=== PATIENT | female | born 1960 | race Caucasian/White ===

== ENCOUNTER 2024-11-25 13:47 | Inpatient (IN) | payer OTHER, MEDICAID, MEDICARE, SELFPAY ==
[2024-11-25] VITALS (31 sets, daily range): BP systolic 71–115; BP diastolic 42–75; PULSE 85–103; RESP 14–30; TEMP 36.6–36.8; O2SAT 82–100; BMI 24.7
--- NOTE | 2024-11-25 14:52 | PD.EDAMS ---
Altered Mental Status RME/HPI General Chief Complaint: Altered Mental Status Stated Complaint: AMS Time Seen by Provider: 11/25/24 14:48 Arrival date/time: 11/25/24 13:47 RME / HPI RME / HPI narrative: DR. GU MAIN ED EVALUATION: 64 year old female presents to the Emergency Department with complaints of nausea, vomiting, diarrhea, and frequent falling for 2 days, generalized weakness. Symptoms are moderate. Patient denies any of the following: cough, injuries/ broken bones, or any other symptoms at this time. PMHx: Hypertension, migraine headaches, bipolar disorder, depression, anxiety. In September 2022 had a witnessed tonic-clonic seizure, no subsequent visits for seizures. On oxycodone for chronic back pain. Social Hx: No tobacco, alcohol, or substance use. Related Data Home Medications ?Medication ?Instructions ?Recorded ?Confirmed albuterol sulfate 90 mcg/actuation 2 puff inhalation Q6HR PRN 10/01/22 10/01/22 aerosol inhaler (Ventolin HFA) Shortness Of Breath carvedilol 12.5 mg tablet 12.5 mg PO BID 10/01/22 10/01/22 memantine 10 mg tablet 10 mg PO BID 10/01/22 10/01/22 simvastatin 10 mg tablet 10 mg PO QPM 10/01/22 10/01/22 tiotropium 2.5 mcg-olodaterol 2.5 2 puff inhalation DAILY 10/01/22 10/01/22 mcg/actuation mist for inhalation (Stiolto Respimat) lisinopril 20 mg tablet 20 mg PO QDAY 10/04/22 10/04/22 Previous Rx's ?Medication ?Instructions ?Recorded pantoprazole 40 mg tablet,delayed 40 mg PO QDAY #30 tabs 12/31/23 release (Protonix) hydrochlorothiazide 12.5 mg capsule 12.5 mg PO BIDD #60 caps 06/10/24 pregabalin 100 mg capsule (Lyrica) 100 mg PO QDAY #30 caps 06/10/24 Allergies Allergy/AdvReac Type Severity Reaction Status Date / Time No Known Allergies Allergy Verified 11/25/24 13:51 Review of Systems Review of Systems Systems Reviewed: All systems reviewed, normal except as documented Narrative Review of Systems: GEN: No fever, no chills, no weight loss, + frequent falling for 2 days EYES: No discharge, no visual changes, no pain HEENT: No ear pain, no congestion, no sore throat PULM: No shortness of breath, no cough, no congestion CV: No chest pain, no dyspnea on exertion, no palpitations GI: + nausea, + vomiting, + diarrhea, no pain, no constipation : No frequency, no urgency and no dysuria MUSC/SKEL: No joint pain, no back pain SKIN: No rash PSYCH: No hallucinations, no depression HEME/LYMPH: No easy bleeding or bruising tendencies NEURO: + generalized weakness, no headache Past Medical History Past Medical History NEUROLOGIC: Positive Neurological Disorders, Dementia, Seizures and Migraine; Negative Cerebrovascular Accident CARDIAC: Positive Heart Murmur, Hypercholesterolemia, Hypertension and Hypotension; Negative Cardiac Disorders or Congestive Heart Failure RESPIRATORY: Positive Chronic Obstructive Pulmonary Disease (COPD) and Asthma; Negative Pneumonia, Tuberculosis or Sleep Apnea GASTROINTESTINAL: Positive Gastrointestinal Disorders, Gastrointestinal Bleed, Ulcer, Hiatal Hernia, Hemorrhoids and Gastroesophageal Reflux Disease GENITOURINARY: Positive Polycystic Kidney Disease; Negative Genitourinary Disorders or Renal Disease REPRODUCTIVE: Positive Previous Pregnancies MUSCULOSKELETAL: Positive Musculoskeletal Disorders, Arthritis, Scoliosis, Fibromyalgia and Fractures ENDOCRINE: Positive Endocrine Disorders and Diabetes Mellitus Type 2; Negative Diabetes Mellitus Type 1, Hyperthyroidism or Hypothyroidism HEMATOLOGIC: Negative Blood Disorders or Sickle Cell Disease PSYCHO/SOCIAL: Positive Bipolar Disorder, Depression and Anxiety OTHER HISTORY: Positive Hospitalization, Falls and Chicken Pox; Negative Shingles, Blood Transfusions, Blood Transfusion Reaction, Anesthesia Reactions or Cancer Family History FAMILY HISTORY: Positive Family Cardiac Disorders and Family Cancer (Mother with liver cancer) Surgical History SURGICAL: Positive Joint Replacement and Tubal Ligation (1984) Social History SMOKING STATUS: Current some day smoker SUBSTANCE USE: does not use OCCUPATION: Disabled ED Exam Narrative Physical exam: GENERAL APPEARANCE: Well hydrated, well nourished, looks uncomfortable. Appears to be dehydrated. VITALS: All vitals were reviewed and the pulse ox is 98% on room air which is normal according to my interpretation. HEENT: Normocephalic, atramatic, EOMI, EACs are patent. There is no bulge or retraction. Throat without erythema or exudate. Dry oromucosa. No jaundice NECK: Supple, no JVD or bruits. CARDIOVASCULAR: Heart regular without S3-S4 or murmur. No rubs or gallops. LUNGS/CHEST: Clear to auscultation bilaterally. No rales, rhonchi, or wheezing. Normal inspection. ABDOMEN: Some pain in the suprapubic area. Normal bowel sounds. No pulsatile masses. No rebound, rigidity, or guarding. No incarcerated hernia. EXTREMITIES: No edema, clubbing, or cyanosis. Intact CSM. Normal inspection and palpation. SKIN: Warm and dry without rashes. Normal inspection. MUSCULOSKELETAL: No gross deformity, full ROM all extremities. Normal inspection. NEURO: Alert and oriented x3. Cranial nerves II through XII grossly intact. There are no other motor or sensory deficits noted. GCS of 15. FROM of all 4 extremities with symmetrical strength. 5/5. PSYCHIATRIC: Normal mood and affect. No psychosis. Course Quality Measures none Orders Category Date Time Status Bedside Blood Glucose NOW Care 11/25/24 14:[address] Screening NOW Care 11/25/24 15:14 Active Change Director NOW Care 11/25/24 14:29 Active Continuous Pulse Oximetry NOW Care 11/25/24 14:29 Completed EKG (ED ONLY) *Do not use* NOW Care 11/25/24 16:03 Completed Insert IV NOW Care 11/25/24 14:[address] abdomen pelvis w con Stat Exams 11/25/24 15:[address] head/brain wo con Stat Exams 11/25/24 15:14 Ordered EKG (ED Only) Stat Exams 11/25/24 16:03 Draft Alcohol, Blood Medical Stat Lab 11/25/24 14:45 Completed CBC Stat Lab 11/25/24 14:45 Completed Comprehensive Metabolic Panel Stat Lab 11/25/24 14:45 Completed Drug Screen,Urine Stat Lab 11/25/24 15:18 Ordered Magnesium Stat Lab 11/25/24 14:45 Completed Troponin I Stat Lab 11/25/24 18:09 Ordered Urine Culture Stat Lab 11/25/24 15:18 Received Sodium Chloride 0.9% 1000 ml [Ns] 1,000 ml Med 11/25/24 15:15 Discontinued IV 999 mls/hr Sodium Chloride 0.9% 1000 ml [Ns] 1,000 ml Med 11/25/24 16:49 Discontinued IV 999 mls/hr Sodium Chloride 0.9% 1000 ml [Ns] 1,000 ml Med 11/25/24 17:36 Active IV 999 mls/hr Vital Signs Vital signs: Vital Signs Temperature 97.9 F 11/25/24 14:05 Pulse Rate 87 11/25/24 14:05 Respiratory Rate 18 11/25/24 14:05 Blood Pressure 101/75 11/25/24 14:05 Pulse Oximetry (%) 98 11/25/24 14:05 Oxygen Delivery Method Room Air 11/25/24 14:05 Altered Mental Status MDM Narrative MDM Narrative:: I, Silvia Skelton, am scribing for and in the presence of Dr. Gu. CBC unremarkable. Bicarb of 13. BUN and creatinine is 137/11. Osmolality is also very elevated. Consistent with metabolic acidosis and dehydration anion gap is also elevated. UA is pending. U tox is pending. ET is negative. Magnesium is negative. Troponin is pending. The patient came in with a blood pressure 101/75 but gradually is slowing down to about 74 palpable. I did rectal exam on her in the presence of female RN looking for blood. But guaic was negative from below. Because of the hypotension, the patient received up to 3 L of normal saline. She is on the third liter right now. Her blood pressure is 100/70. The patient is actually alert awake oriented x 4 GCS of 15 and talking well. No neurological deficit. 6 PM, I spoke to discussed with , the incoming ER doctor. The patient was signed out to him pending CTs and pending labs Critical care time was approximately 45 minutes excluding any procedure. The high probability of sudden, clinically significant deterioration in the patient?s condition required the highest level of my preparedness to intervene urgently. The services I provided to this patient were to treat and/or prevent clinically significant deterioration. Services included the following: chart data review, reviewing nursing notes and/or old charts, documentation time, configuration management consultant collaboration regarding findings and treatment options, medication orders and management, direct patient care, vital sign assessments and ordering, interpreting and reviewing diagnostic studies and lab tests. Aggregate critical care time includes only time during which I was engaged in work directly related to the patient?s care, as described above, whether at bedside or elsewhere in the Emergency Department. It did not include time spent performing other reported procedures or the services of residents, students, nurses or physician assistants. Patient data External records reviewed:: [facility] previous records (Reviewed last admission discharge dated 06/10/24, patient admitted for the following: AMS) Clinical information provided by:: patient Social determinants that could affect healthcare access:: none Patient has the following chronic illnesses:: Hypertension, migraine headaches, bipolar disorder, depression, anxiety. In September 2022 had a witnessed tonic-clonic seizure, no subsequent visits for seizures. On oxycodone for chronic back pain. How is presenting disease/condition affected by chronic disease/condition?: exacerbated by Evaluation data The following diagnostics were reviewed and interpreted by me:: lab results and radiology exam(s) Lab and/or radiology exams considered but not ordered:: none Interpretation Summary: Pending. Medications / Prescriptions Medications or Prescriptions considered but not ordered:: none Medication administrations:: Medication Administration History Sodium Chloride (Ns) 1,000 mls @ 999 mls/hr IV .Q1H1M ONE Stop: 11/25/24 18:36 Last Admin: 11/25/24 17:15 Dose: 999 mls/hr Documented By: AM Discontinued Medications Sodium Chloride (Ns) 1,000 mls @ 999 mls/hr IV .Q1H1M ONE Stop: 11/25/24 16:15 Last Infusion: 11/25/24 16:30 Dose: Infused Documented By: Admin: 11/25/24 16:06 Dose: 999 mls/hr Documented By: AM Sodium Chloride (Ns) 1,000 mls @ 999 mls/hr IV .Q1H1M ONE Stop: 11/25/24 17:49 Last Infusion: 11/25/24 17:32 Dose: Infused Documented By: Admin: 11/25/24 16:53 Dose: 999 mls/hr Documented By: AM see above if any Consultations Consultation(s) initiated? (list below): No Diagnosis Most likely diagnosis given after review of the tests above:: Acute renal failure Hypotension Admission Indicated Admission indicated?: not indicated Explain why admission is indicated or not indicated:: No final disposition plan at this time, still pending diagnostic tests. Patient signout to the travel cota provider. Admission Request Was there a request for admission?: No Disposition Plan Disposition Plan: other (specify) (Patient signout to the travel cota provider. ) Discharge Plan Plan Disposition Comment: Stable at signout Prescriptions/Referrals Prescriptions/Med Rec: No Action Stiolto Respimat 2.5-2.5 mcg/actuation mist 2 puff INHALATION DAILY albuterol sulfate [Ventolin HFA] 90 mcg/actuation HFA aerosol inhaler 2 puff INHALATION Q6HR PRN (Reason: Shortness Of Breath) memantine 10 mg tablet 10 mg PO BID simvastatin 10 mg tablet 10 mg PO QPM carvedilol 12.5 mg tablet 12.5 mg PO BID lisinopril 20 mg Tablet 20 mg PO QDAY pregabalin [Lyrica] 100 mg capsule 100 mg PO QDAY Qty: 30 0RF hydrochlorothiazide 12.5 mg Capsule 12.5 mg PO BIDD Qty: 60 0RF pantoprazole [Protonix] 40 mg tablet,delayed release (DR/EC) 40 mg PO QDAY Qty: 30 0RF Referrals: Benjie Morales MD [Primary Care Provider] - In 1 week Problem List Clinical Impression: Acute renal failure, Dehydration, Acute hypotension Patient/Caregiver Discharge Instructions Print Language: Arabic
--- NOTE | 2024-11-25 15:14 | XR_ITS ---
Examination: CT brain head without contrast. 2-D sagittal coronal reconstructions Date and time of exam:November 25, 2024 1909 hrs. Indications: Patient fell today with injury to the head, followed by head pain altered mental status CTDI: vol (mGy):47.4 DLP: (mGycm):901 Technique: Multiple CT axial sections of the brain have been obtained, 5 mm slice thickness. Contrast has not been administered. 2-D sagittal, coronal reconstructions have been obtained Low dose protocols were performed. One or more of the following dose reduction techniques were used; automated exposure control, adjustment of the mA and/or KV according to patient size, use of iterative reconstruction technique. Findings: No significant ventricular enlargement. Intra-axial or extra-axial hemorrhage density is not seen. No mass effect or midline shift Basal cisterns are not remarkable. Fourth ventricle is midline. Cranial vault intact. Impression: Negative for acute hemorrhage, mass effect or midline shift
[2024-11-25 15:38] LABS: Basophils % (Auto) 0 % (0-2.5); Eosinophils % (Auto) 0 % (0-10); Hematocrit 38.4 % (36.0-46.0); Immature Granulocytes % (Auto) 1 % (0-0); Immature Granulocytes Auto 0.04 Thou/mm3 (0.00-0.00); Lymphocytes # (Auto) 0.8 Thou/mm3 (1.0-4.8); Lymphocytes % (Auto) 9 % (10-50); Mean Corpuscular HGB Conc 33.9 g/dl (31.0-37.0); Mean Corpuscular Hemoglobin 31.5 pg (25.0-35.0); Mean Corpuscular Volume 93 fL (80-100); Monocytes % (Auto) 11 % (0-12); Neutrophils # (Auto) 6.8 Thou/mm3 (1.8-7.7); Neutrophils % (Auto) 79 % (37-80); Nucleated Red Blood Cell % 0 /100 WBC (0); Platelet Count 322 Thou/mm3 (140-440); RDW Standard Deviation 45.6 fL (36.4-46.3); Red Blood Count 4.13 Miln/mm3 (4.00-5.20); White Blood Count 8.7 Thou/mm3 (3.6-11.0)
--- NOTE | 2024-11-25 16:03 | EKG_ITS ---
[facility] Test Date: 2024-11-25 Pat Name: TRUMAN BYRD Department: Room: - Gender: Female Chronic Care Nurse: : 1960 Requested By: Long Gu Order Number: [id number] Reading MD: Long Gu Measurements Intervals [place] Rate: 87 P: 71 CO: 127 QRS: 62 QRSD: 86 T: 72 QT: 413 QTc: 499 Interpretive Statements SINUS RHYTHM LEFT VENTRICULAR HYPERTROPHY AND ST-T CHANGE [VOLTAGE CRITERIA PLUS ST/T ABNORMALITY] No previous ECG available for comparison /store/S0/[id number]/ecg/[id number].pdf
[2024-11-25] MEDS: SODIUM CHLORIDE 0.9% 1000 ML 1,000 ML 999 ML IV ×3 (16:06→17:15)
--- NOTE | 2024-11-25 16:07 | PC.NURSE ---
ekg complete. Dr. Gu at bedside. Pt has 1 L fluid running in now. b/p 71/56.
--- NOTE | 2024-11-25 16:53 | PC.NURSE ---
Dr. Gu came to see pt. b/p 85/52, pt started on another 1 liter ns bolus. b/p 103/51 now.
[2024-11-25 17:22] LABS: Alanine Aminotransferase 28 U/L (10-49); Albumin, Serum 5.5 gm/dL (3.4-4.8); Alcohol, Blood Medical < 3.0 mg/dL (0-10.0); Alkaline Phosphatase 87 U/L (46-116); Anion Gap 28 (7-16); Aspartate Amino Transferase 25 U/L (0-34); BUN/Creatinine Ratio 12 Ratio (12-20); Bilirubin,Total 0.3 mg/dL (0.3-1.2); Chloride 91 mMol/L (98-107); Globulin 2.7 gm/dL (2.3-3.5); Glucose 99 mg/dL (74-106); Magnesium 2.6 mg/dL (1.6-2.6); Osmolality,Calculated 308 (275-295); Potassium 3.5 mMol/L (3.4-5.1); Sodium 132 mMol/L (136-145); Total Protein 8.2 gm/dL (5.7-8.2); eGFR 4 See Note
[2024-11-25 17:23] LABS: Blood Urea Nitrogen 137 mg/dL (9-23); Creatinine (Component) 11.1 mg/dL (0.6-1.3)
--- NOTE | 2024-11-25 17:34 | PC.NURSE ---
Dr. Gu informed about b/p going down to 74/44 after 2nd ns bolus. Another 1 liter bolus started. Pt holding off on ct for 30 minutes, until MD states she is stable to go.
--- NOTE | 2024-11-25 18:20 | XR_ITS ---
Examination: CT chest, without intravenous contrast. CT abdomen, without intravenous contrast. CT pelvis, without intravenous contrast. 2-D sagittal and coronal reconstructions. 3-D reconstructions. Date and time of exam:November 25, 1999 2511 hours Indications: Patient fell today with injury to the chest and abdomen, chest pain abdomen pain CTDI vol (mgy) 9.97 DLP (MGycm)653 Technique: Multiple CT images, 3.0 mm slice thickness, obtained chest, abdomen, pelvis, with the high-resolution 64 slice scanner.. Sagittal and coronal 2-D reconstructions are obtained. 3-D reconstructions Low dose protocols were performed. One or more of the following dose reduction techniques were used; automated exposure control, adjustment of the mA and/or KV according to patient size, use of iterative reconstruction technique. Findings: Thoracic aorta pulmonary arteries intact on this noncontrast study No hemopericardium No pneumothorax pulmonary contusion or hemothorax Ribs appear intact Manubrium body the sternum thoracic vertebral bodies intact No liver splenic laceration Again noted fat-containing right adrenal mass 34 mm Hyperdense mass right kidney which may represent a proteinaceous cyst, 4.7 cm No perinephric stranding Aorta normal size No free blood in the abdomen Negative for pneumoperitoneum Urinary bladder intact Lumbar vertebral bodies appear intact Sacral segments and iliac bones and hips appear intact Impression: Thoracic aorta pulmonary arteries intact Hemopericardium, pneumothorax, pulmonary contusion or hemothorax No abdominal parenchymal laceration Abdominal aorta intact No free blood in the abdomen Recommend renal sonography to confirm 4.7 cm proteinaceous cyst
[2024-11-25 18:44] LABS: Troponin I 0.058 ng/mL (0.0-0.045)
[2024-11-25 18:53] LABS: Lactate (Lactic Acid) 0.5 mMol/L (0.4-2.0)
[2024-11-25] MEDS: SODIUM CHLORIDE 0.9% 1000 ML 1,000 ML 125 ML IV (18:56)
[2024-11-25 19:19] LABS: Procalcitonin 3.58 ng/ml (0.0-0.49)
--- NOTE | 2024-11-25 20:04 | PD.EDADDENDU ---
Emergency Room Addendum Addendum Narrative: 1800 care assumed by previous shift provider. Past medical, surgical, social and family history reviewed. Vitals and home medications reviewed. Results and treatment plan discussed. I will assume the care of the patient at this time and will follow the patient, pending final disposition. On my encounter Ms. Cox is awake slightly lethargic,, she has very dry mucous membranes, no pallor. She has been complaining of 5 days of profuse watery brown diarrhea, over 20 episodes a day. She has also had nausea and vomiting for the last 5 days. She denies recent URI or sick contacts. She denies fevers chills or sweats. Patient has significant azotemia, with a BUN of 137, potassium is normal, but she has a moderate anion gap metabolic acidosis with a bicarbonate of 13 and anion gap of 28. This is resulting in a delta bicarbonate of 11 and a delta gap of 14, which suggests primarily a gap acidosis. Her creatinine at 11 would suggest a nongap acidosis. Blood sugar is normal, I added a lactic acid which also returned within normal limits. At 1900, nephrology, Dr. York was consulted. We reviewed her acute kidney, metabolic profile, and we agree that it is curious as she does seem to have primarily a anion gap acidosis with a contraction alkalosis on top of that as to why her delta gap is greater than her delta bicarbonate. Regardless we do not feel that she requires emergent dialysis, could benefit from a bicarbonate drip and a liter of D5W and to supplement and support her potassium at the same time. She will consult on the admission. Critical care time: 35 minutes, excluding billable procedures for the rapid response, analysis, management, deliberation with specialist, and rotation given the very possible risk of metabolic decompensation and or CT abdomen pelvis shows no acute pathology. 1999: Case was discussed with Dr. Conrad, hospitalist on-call and agrees to admit.
[2024-11-25] MEDS: POTASSIUM CHL 10 mEq IVPB 10 MEQ/100 ML BAG 100 MEQ IV (20:24)
[2024-11-25] MEDS: Sodium Bicarb 8.4% 50ml Vial* 150 MEQ in DEXTROSE 5%-WATER 1,000 ML 100 MEQ IV (20:25)
[2024-11-25] MEDS: POTASSIUM CHL 10 mEq IVPB 10 MEQ/100 ML BAG 75 MEQ IV (22:07)
[2024-11-25] MEDS: RINGERS LACTATED 1000 ML 1,000 ML 125 ML IV (22:07)
[2024-11-25] MEDS: HEPARIN SOD INJ 5000 UNIT/ML VIAL SC (22:08)
--- NOTE | 2024-11-25 22:15 | PC.NURSE ---
per dr galeano stop normal saline fluid and start patient on LR fluid instead
--- NOTE | 2024-11-25 22:17 | ESHP_ITS ---
Documentation for date of: 11/25/24 HPI History of Present Illness Chief complaint: Vomitings and diarrhea History of present illness: 64-year-old female with past medical history of hypertension, seizure disorder [2021] not on medication, bipolar, dementia, chronic diarrhea, chronic back pain, history of SVT s/p cardioversion presented to the hospital with chief complaints of intractable vomitings and diarrhea since 5 days. Patient was apparently normal 5 days ago, since then patient is complaining of multiple episodes of vomitings which are bilious and multiple episodes of diarrhea containing brown watery stools without any associated mucus or blood. Associated with mild abdominal pain on the left side. Since last 3 days, patient had multiple episodes of fall during which patient felt blackening out without any loss of consciousness or abnormal movements and also denied associated tongue bite. Denies recent travel, recent outside food intake, fever. Reported that she is taking Percocet and also taking Movantik for the opioid-induced constipation until 3 days before the day of admission. Patient endorses that he had mild trauma to the head and the finger but without any associated symptoms. Patient endorses that she noted decreased frequency of urination without any change in the color. ED Course: -Initial vitals were blood pressure 101/75 mmHg, pulse rate 87 bpm, respiratory rate 18/min, temperature 97.9 ?F, SpO2 98% with room air -Labs significant for Sodium 132, potassium 3.5, chloride 91, bicarb 13, BUN 137, creatinine 11.1, troponin 0.085, procalcitonin 3.58 -Urine analysis showed turbid, 1+ proteinuria, 1+ blood. Urine toxicology is negative -Head CT is negative for hemorrhage/mass effect. CT chest/abdomen/pelvis did not show any significant pathology except for renal cyst -In the ED, patient was given bolus of IV NS and started on bicarb drip as per Dr. York recommendations -Patient was admitted for acute kidney injury secondary to intractable vomitings and diarrhea Past medical history: hypertension, seizure disorder [2021] not on medication, bipolar, dementia, chronic diarrhea, history of SVT s/p cardioversion Past surgical history: Tubal ligation Social history: Remote smoking of 25 years, stopped 20 years ago, denies alcohol, other illicit drug abuse. Review of Systems Review of Systems Systems Reviewed: All systems reviewed, normal except as documented Past Medical History Past Medical History NEUROLOGIC: Positive Neurological Disorders, Dementia, Seizures and Migraine; Negative Cerebrovascular Accident CARDIAC: Positive Heart Murmur, Hypercholesterolemia, Hypertension and Hypotension; Negative Cardiac Disorders or Congestive Heart Failure RESPIRATORY: Positive Chronic Obstructive Pulmonary Disease (COPD) and Asthma; Negative Pneumonia, Tuberculosis or Sleep Apnea GASTROINTESTINAL: Positive Gastrointestinal Disorders, Gastrointestinal Bleed, Ulcer, Hiatal Hernia, Hemorrhoids and Gastroesophageal Reflux Disease GENITOURINARY: Positive Polycystic Kidney Disease; Negative Genitourinary Disorders or Renal Disease REPRODUCTIVE: Positive Previous Pregnancies MUSCULOSKELETAL: Positive Musculoskeletal Disorders, Arthritis, Scoliosis, Fibromyalgia and Fractures ENDOCRINE: Positive Endocrine Disorders and Diabetes Mellitus Type 2; Negative Diabetes Mellitus Type 1, Hyperthyroidism or Hypothyroidism HEMATOLOGIC: Negative Blood Disorders or Sickle Cell Disease PSYCHO/SOCIAL: Positive Bipolar Disorder, Depression and Anxiety OTHER HISTORY: Positive Hospitalization, Falls and Chicken Pox; Negative Shingles, Blood Transfusions, Blood Transfusion Reaction, Anesthesia Reactions or Cancer Family History FAMILY HISTORY: Positive Family Cardiac Disorders and Family Cancer (Mother with liver cancer) Surgical History SURGICAL: Positive Joint Replacement and Tubal Ligation (1984) Social History SMOKING STATUS: Current some day smoker SUBSTANCE USE: does not use OCCUPATION: Disabled Exam Vital Signs Temp Pulse Resp BP Pulse Ox O2 Del Method 98.0 F 95 16 115/57 L 98 Room Air 11/25/24 19:30 11/25/24 21:13 11/25/24 21:13 11/25/24 21:13 11/25/24 21:13 11/25/24 21:13 Narrative Exam General: Awake. HEENT: Normocephalic, atraumatic, mucous membranes moist. Heart: Regular rate and rhythm, no murmurs. Lungs: Clear to auscultation with no wheezing or crackles. Abdomen: Soft, nondistended, nontender, positive bowel sounds. ?No guarding or rebound tenderness. Neurologic: Alert and oriented x3, no gross neurological deficit, and patient able to move all 4 extremities. Extremities: No edema. Skin: No rash or ecchymoses. Results: Labs 11/25/24 14:45 11/25/24 14:45 Labs: Short CBC 11/25/24 Range/Units 14:45 WBC 8.7 (3.6-11.0) Thou/mm3 Hgb 13.0 (12.0-16.0) g/dL Hct 38.4 (36.0-46.0) % Plt Count 322 (140-440) Thou/mm3 BMP 11/25/24 14:45 Sodium 132 L Potassium 3.5 Chloride 91 L Carbon Dioxide 13.0 L* BUN 137 H* Creatinine 11.1 H* Glucose 99 Calcium 8.0 L Cardiac Enzymes 11/25/24 Range/Units 14:45 Troponin I 0.058 H* (0.0-0.045) ng/mL Liver Function 11/25/24 Range/Units 14:45 Total Bilirubin 0.3 (0.3-1.2) mg/dL AST 25 (0-34) U/L ALT 28 (10-49) U/L Alkaline Phosphatase 87 (46-116) U/L Albumin 5.5 H (3.4-4.8) gm/dL Urine 11/25/24 Range/Units 15:18 Urine Color Cancelled Urine Clarity Cancelled Urine pH Cancelled Ur Specific [place] Cancelled Urine Protein Cancelled Urine Glucose (UA) Cancelled Quality Measures Quality Measures none Medications Home Medications and Allergies Home Medications ?Medication ?Instructions ?Recorded ?Confirmed ?Type albuterol sulfate 90 mcg/actuation 2 puff inhalation Q6HR PRN 10/01/22 10/01/22 History aerosol inhaler (Ventolin HFA) Shortness Of Breath carvedilol 12.5 mg tablet 12.5 mg PO BID 10/01/22 10/01/22 History memantine 10 mg tablet 10 mg PO BID 10/01/22 10/01/22 History simvastatin 10 mg tablet 10 mg PO QPM 10/01/22 10/01/22 History tiotropium 2.5 mcg-olodaterol 2.5 2 puff inhalation DAILY 10/01/22 10/01/22 History mcg/actuation mist for inhalation (Stiolto Respimat) lisinopril 20 mg tablet 20 mg PO QDAY 10/04/22 10/04/22 History Allergies Allergy/AdvReac Type Severity Reaction Status Date / Time No Known Allergies Allergy Verified 11/25/24 13:51 Visit Medications Acetaminophen (Acetaminophen 325 Mg Tablet) 650 mg PO Q6H PRN PRN Reason: Fever >101.5 Stop: 12/25/24 21:46 Heparin Sodium (Porcine) (Heparin Sod Inj 5000 Unit/Ml Vial) 5,000 unit SC Q8HR [facility] Stop: 12/09/24 21:59 Last Admin: 11/25/24 22:08 Dose: 5,000 unit Sodium Bicarbonate 150 meq/ (Dextrose) 1,150 mls @ 100 mls/hr IV .[id number] [facility] Stop: 11/26/24 06:59 Last Admin: 11/25/24 20:25 Dose: 100 mls/hr Lactated Ringer's (Lactated Ringers) 1,000 mls @ 125 mls/hr IV .Q8H ONE Stop: 11/26/24 05:54 Last Admin: 11/25/24 22:07 Dose: 125 mls/hr Ondansetron HCl (Ondansetron Inj 2 Mg/Ml Inj 2 Ml) 4 mg IV Q6H PRN; Protocol PRN Reason: NAUSEA OR VOMITING Stop: 12/25/24 21:46 Discontinued Medications Sodium Chloride (Ns) 1,000 mls @ 999 mls/hr IV .Q1H1M ONE Stop: 11/25/24 16:15 Last Infusion: 11/25/24 16:30 Dose: Infused Sodium Chloride (Ns) 1,000 mls @ 999 mls/hr IV .Q1H1M ONE Stop: 11/25/24 17:49 Last Infusion: 11/25/24 17:32 Dose: Infused Sodium Chloride (Ns) 1,000 mls @ 999 mls/hr IV .Q1H1M ONE Stop: 11/25/24 18:36 Last Infusion: 11/25/24 18:19 Dose: Infused Potassium Chloride (Kcl Ivpb) 10 meq in 100 mls @ 100 mls/hr IV Q1H [facility] Stop: 11/25/24 21:18 Last Admin: 11/25/24 22:07 Dose: 75 mls/hr Sodium Bicarbonate 300 meq/ (Dextrose) 1,300 mls @ 100 mls/hr IV .Q13H [facility] Stop: 12/25/24 19:29 Last Admin: 11/25/24 20:00 Dose: Not Given Sodium Chloride (Ns) 1,000 mls @ 125 mls/hr IV .Q8H ONE Stop: 11/26/24 03:25 Last Admin: 11/25/24 18:56 Dose: 125 mls/hr Assessment & Plan Plan 64-year-old female with past medical history of hypertension, seizure disorder [2021] not on medication, bipolar, dementia, chronic diarrhea, chronic back pain, history of SVT s/p cardioversion presented to the hospital with chief complaints of intractable vomitings and diarrhea since 5 days and admitted for MAYELIN secondary to intractable vomiting/diarrhea # MAYELIN, prerenal # In the setting of intractable vomitings and diarrhea # History of chronic diarrhea, unspecified cause -Patient admits that she had multiple episodes of vomitings and diarrhea since 5 days -Endorsed that she has watery, brownish stools since 5 days associated with no blood or mucus -Not associated with fever, abdominal pain, burning micturition, recent food intake from outside, recent travel -Patient endorsed that she is using Percocet and also Movantik for opioid- induced constipation but stopped 5 days ago -Vitals at the time of admission are stable -Baseline creatinine in 06/30 is 0.9 -At the time of admission, creatinine is 11.1, BUN is 137. Procalcitonin is 3.58 -Urine analysis showed turbid, 1+ proteinuria, 1+ blood. Urine toxicology is negative -Head CT is negative for hemorrhage/mass effect. CT chest/abdomen/pelvis did not show any significant pathology except for renal cyst -Colonoscopy and endoscopy is done in 2020 which did not show any significant pathology for the the cause of diarrhea -Renal cyst aspiration also did not show any significant pathology in 2019 -In the ED, patient was given bolus of IV NS and started on bicarb drip as per Dr. York recommendations Plan -C. difficile and stool studies were ordered -Renal ultrasound is ordered -Will continue IV fluids, LR at 75 mL/h -Ondansetron as needed -Will continue bicarb drip -Replace electrolytes as needed -Consulted Dr York, will appreciate recommendations -Monitor renal functions and strict intake and output -Beck[place] catheter is placed as patient is unable to void -Avoid nephrotoxic medications and renally dose medications # Elevated troponins, type II Likely in the setting of MAYELIN -Trend troponins # History of hypertension -Patient blood pressures since the time of admission are within normal limits -Medication reconciliation is ordered -Resume medications as needed # History of bipolar disorder # History of dementia # History of SVT # chronic back pain -Medication reconciliation is ordered -Resume medications as needed Hospital Maintenance: Dispo: Tele DVT ppx: Heparin GI ppx: not needed Diet: Regular IV lines: Peripheral Code status: Full Patient plan of care was discussed with the attending physician, Dr. Gianna Rogel, PGY1 Attending Provider Attestation/Addendum I have examined the patient, reviewed labs and imaging findings, discussed the case with the resident(s), and reviewed entered orders. I agree with the plan of care as outlined in this note, with these additional summaries/recommendations: Patient is a 64-year-old female poor historian with a medical history of bipolar disorder, primary hypertension, dementia, COPD, chronic constipation, hyperlipidemia, chronic pain, 1 episode of previous seizure-like activity who presented to [facility] emergency department on 11/25/2024 with chief complaint of intractable diarrhea plus nausea/vomiting, generalized weakness, and a fall. In the emergency department patient was found to have severe MAYELIN with metabolic acidosis and thus hospitalist team was consulted for continuation of care. #Acute Kidney Injury Most likely secondary to prerenal azotemia in the setting of severe diarrhea and nausea plus vomiting On admission creatinine 11.1 and BUN 137 (baseline creatinine approx. 0.9) Nephrology consulted, recommendations appreciated Order bilateral renal ultrasound Plan: Nephrology consulted and no need for emergent dialysis at this time. Start IV maintenance fluids and repeat renal panel in AM. Avoid nephrotoxic agents and renally dose medications. Follow-up renal ultrasound. #Anion Gap Metabolic Acidosis On Admission AG 28 and bicarb 13.0 Most likely secondary to uremia +/- starvation ketoacidosis with delta gap of 14 with possible contraction alkalosis? Plan: Patient started on IV maintenance fluids with 3 Amps of bicarb. Urinalysis pending. repeat chemistry panel in AM. #Intractable diarrhea #Intractable nausea/vomiting Per patient she has had profuse watery brown diarrhea for 3 to 5 days with over 20 episodes a day with 5 episodes of vomiting per day. Of note patient is a poor historian. Denies any sick contacts, travel, exposure to [place] Plan: Order stool WBCs, stool culture, C. difficile, norovirus, and giardia. Zofran as needed for nausea. Continue maintenance fluids. We will defer starting oral antibiotic and antidiarrheal for now until further stool studies are available. #Severe dehydration #Generalized weakness w/ fall #?Pulmonary contusion Secondary to intractable diarrhea causing severe dehydration and weakness CT head wo: Negative for acute hemorrhage, mass effect or midline shift CT C/A/P: Pulmonary contusion or hemothorax Plan: Patient appears stable from a respiratory standpoint. Possible incidental finding on CT for pulmonary contusion. Nonetheless management is predominantly supportive and we will continue pain control, pulmonary support, fluids, and early mobilization. We will order chest x-ray for a.m. Physical therapy consultation ordered. #Troponinemia No cardiac complaints at this time On admission troponin elevated to 0.058 Most likely secondary to demand ischemia unrelated to ACS EKG showed sinus rhythm, rate 87, LVH criteria, and nonspecific ST changes Plan: Continue to trend troponin every 8 hours or until downtrend. EKG as needed if chest pain develops. #Hypocalcemia Mild, likely secondary to poor oral intake, on admission corrected calcium 8.0 Plan: Replace as needed and repeat level in AM. #COPD: Not in acute exacerbation. As needed DuoNebs ordered. #Dementia: Early onset although type unknown. Resume home memantine and donepezil when able. #Primary hypertension: Blood pressure soft on admission and we will hold oral antihypertensives for now reinstitute as tolerated. #Chronic pain: Resume home [place] as needed. #Hyperlipidemia: Resume home statin when tolerating oral diet Dr. Katz
--- NOTE | 2024-11-25 22:26 | XR_ITS ---
Examination: Retroperitoneal ultrasound, complete Technique: Multiple high resolution grayscale images of the retroperitoneum obtained, including kidneys and bladder. Exam date and time:November 25, 2024 1031 hrs. Indications: Right flank pain beginning 3 months ago, unable to unable to urinate today, right renal mass Findings: Right kidney 11.4 x 5.8 x 5.9 cm cortex 2.5 cm Midpole cyst 4.3 x 3.9 cm Left kidney 10.8 x 4.7 x 4.8 cm cortex 2.0 cm Moderate bilateral renal parenchymal scar formation No hydronephrosis No bladder mass or bladder calculi Bladder prevoid volume 408 cc unable to void Impression: Right renal cyst 4.3 x 3.9 x 3.5 cm Moderate bilateral renal parenchymal scar formation No hydronephrosis
[2024-11-25] MEDS: RINGERS LACTATED 1000 ML 1,000 ML 75 ML IV (22:47)
[2024-11-25 23:29] LABS: Collection Type, Urine Catheter; WBC,Urine 0 /hpf (0-5)
[2024-11-25 23:52] LABS: Bilirubin,Urine Negative (Negative); Blood,Urine 1+ (Negative); Clarity,Urine Turbid (Clear/Hazy); Color,Urine Yellow (Lt Yel-Yel); Glucose, Urine Negative (Negative); Ketones,Urine Negative (Negative); Leukocyte Esterase,Urine Negative (Negative); Nitrite,Urine Negative (Negative); PH,Urine 5.5 (5.0-7.0); Protein,Urine 1+ (Neg - Trace); RBC,Urine 3 /hpf (0-3); Specific Gravity,Urine 1.016 (1.001-1.035); Squamous Epithelial Cell,Urine < 1 /hpf (0-5); Urobilinogen,Urine Negative mg/dL (0.0-1.0)
[2024-11-26] VITALS (8 sets, daily range): BP systolic 96–127; BP diastolic 57–75; PULSE 75–110; RESP 13–19; TEMP 36.1–36.9; O2SAT 96–99; BMI 13.0
[2024-11-26 00:04] LABS: Troponin I 0.085 ng/mL (0.0-0.045)
[2024-11-26 00:06] LABS: Amphetamine/Methamp Scrn,U Negative (Negative); Barbiturate Screen,Urine Negative (Negative); Benzodiazepines Screen,Urine Negative (Negative); Benzoylecgonine Screen, Ur Negative (Negative); Fentanyl Screen,Urine Negative (Negative); Opiate Screen,Urine Negative (Negative); THC Screen,Urine Negative (Negative)
--- NOTE | 2024-11-26 01:28 | PC.NURSE ---
MEDICATION NOT AVAILABLE IN ER. CALLED HOUSE [facility], WILL BRING MEDICATION DOWN
[2024-11-26] MEDS: CALCIUM CARBONATE 600 MG TABLET PO (02:11)
[2024-11-26 04:42] LABS: Stool for WBCs Few (Negative)
[2024-11-26] MEDS: HEPARIN SOD INJ 5000 UNIT/ML VIAL SC ×3 (05:11→21:42)
[2024-11-26 06:05] LABS: Basophils % (Auto) 1 % (0-2.5); Eosinophils % (Auto) 1 % (0-10); Hematocrit 28.6 % (36.0-46.0); Hemoglobin 9.8 g/dL (12.0-16.0); Immature Granulocytes % (Auto) 1 % (0-0); Immature Granulocytes Auto 0.02 Thou/mm3 (0.00-0.00); Lymphocytes # (Auto) 0.5 Thou/mm3 (1.0-4.8); Lymphocytes % (Auto) 12 % (10-50); Mean Corpuscular HGB Conc 34.3 g/dl (31.0-37.0); Mean Corpuscular Hemoglobin 31.8 pg (25.0-35.0); Mean Corpuscular Volume 93 fL (80-100); Monocytes # (Auto) 0.8 Thou/mm3 (0.0-0.8); Monocytes % (Auto) 19 % (0-12); Neutrophils % (Auto) 68 % (37-80); Nucleated Red Blood Cell % 0 /100 WBC (0); Platelet Count 177 Thou/mm3 (140-440); Red Blood Count 3.08 Miln/mm3 (4.00-5.20); White Blood Count 4.4 Thou/mm3 (3.6-11.0)
[2024-11-26 06:33] LABS: Anion Gap 20 (7-16); BUN/Creatinine Ratio 13 Ratio (12-20); Calcium 6.9 mg/dL (8.3-10.6); Carbon Dioxide 15.4 mMol/L (20.0-31.0); Chloride 102 mMol/L (98-107); Creatinine (Component) 8.5 mg/dL (0.6-1.3); Estimated Creatinine Clearance 6.1 mL/min (>60); Glucose 97 mg/dL (74-106); Osmolality,Calculated 309 (275-295); Sodium 137 mMol/L (136-145); eGFR 5 See Note
[2024-11-26 06:35] LABS: Blood Urea Nitrogen 113 mg/dL (9-23); Troponin I 0.075 ng/mL (0.0-0.045)
[2024-11-26 06:36] LABS: Phosphorous 9.2 mg/dL (2.4-5.1)
[2024-11-26 06:38] LABS: Potassium 2.4 mMol/L (3.4-5.1)
[2024-11-26 06:51] LABS: Glucose Estimated Average 126 mg/dL (80-131)
--- NOTE | 2024-11-26 07:00 | XR_ITS ---
Examination: AP chest single view Technique one AP portable sitting chest single view Exam date and time: November 26, 2024 0702 hrs. Comparison June 07, 2024 Indications: Nausea vomiting diarrhea beginning 2 days ago. Findings: Normal heart size No aspiration pneumonia Moderate osteopenia Impression: No aspiration pneumonia
[2024-11-26] MEDS: POTASSIUM CHLORIDE 20 mEq TABCR 40 MEQ PO ×2 (08:01→13:25)
[2024-11-26] MEDS: POTASSIUM CHL 10 mEq IVPB 10 MEQ/100 ML BAG 100 MEQ IV ×6 (08:41→23:01)
--- NOTE | 2024-11-26 09:21 | PC.SS ---
Follow up note: Sever MAYELIN. On IV fluids. Nephrology recommendations pending.
--- NOTE | 2024-11-26 09:54 | PD.RESPRO ---
Documentation for date of: 11/26/24 Senior resident attestation: The patient is a 64-year-old female, past medical history of bipolar disorder, hypertension, seizure disorder, COPD and dementia, who was brought into the emergency room following intractable vomiting and diarrhea. Also reported a fall. Patient was found to have MAYELIN with metabolic acidosis on labs and admitted to medical floor. #MAYELIN?likely secondary to prerenal azotemia in the setting of severe volume depletion, initial creatinine 11.1, BUN 137, of note patient had normal baseline creatinine of prior labs. Also noticed anion gap metabolic acidosis, nephrology was consulted and patient was started on maintenance IV fluids, Dr York recommended bicarb infusion initially, but switched to IV LR due to concern for hypocalcemia. Noted improvement in BUN and creatinine following IV fluid. #Diarrhea,?currently asymptomatic, labs ordered stool WBC, stool culture, C. difficile PCR, norovirus and Giardia. #Vomiting?currently asymptomatic, Zofran for nausea as needed. #Type II [place]?troponin anemia likely secondary to demand ischemia. Patient evaluated and examined at the bedside, plan of care discussed with rest of the team including my attending physician, except as noted. Quresh PGY2 Subjective Subjective Interval history: 11/26: Patient is an overnight admit. Patient is seen and examined at bedside this morning. Patient states she has been having diarrhea on for about a week week and unable to tolerate oral diet and has not been drinking any water. Patient states she lives alone and cooks and cleans for herself she also endorses compliance with her medications. Patient states that because she has been vomiting and having diarrhea she is also been having recurrent falls at home because of the feeling of dizziness . patient is complaining of back pain, abdominal pain, neck pain. Patient denies any chest pain dizziness or nausea and vomiting. Patient is also complaining of a headache today. Exam Vital Signs Temp Pulse Resp BP Pulse Ox O2 Del Method 97.0 F 75 16 108/61 99 Room Air 11/26/24 08:00 11/26/24 08:00 11/26/24 08:00 11/26/24 08:00 11/26/24 08:00 11/26/24 08:00 Narrative Exam General: Awake. HEENT: Normocephalic, atraumatic, mucous membranes moist. Heart: Regular rate and rhythm, no murmurs. Lungs: Clear to auscultation with no wheezing or crackles. Abdomen: Soft, nondistended, mildly tender below umbilicus, positive bowel sounds. ?No guarding or rebound tenderness. Neurologic: Alert and oriented x3, no gross neurological deficit, and patient able to move all 4 extremities. Extremities: No edema. Skin: No rash or ecchymoses, about 2 cm laceration on upper side of left eyebrow Objective Labs 11/27/24 05:37 11/27/24 05:37 Labs: Laboratory Results - last 24 hr 11/25/24 11/25/24 11/25/24 12:40 14:45 15:18 WBC 8.7 RBC 4.13 Hgb 13.0 Hct 38.4 MCV 93 MCH 31.5 MCHC 33.9 RDW Std Deviation 45.6 Plt Count 322 Neut % (Auto) 79 Lymph % (Auto) 9 L [place] % (Auto) 11 Eos % (Auto) 0 Baso % (Auto) 0 Neut # (Auto) 6.8 Lymph # (Auto) 0.8 L [place] # (Auto) 1.0 H Eos # (Auto) 0.0 Baso # (Auto) 0.0 Immature Gran # (Auto) 0.04 H Absolute Nucleated RBC 0.00 Immature Gran % 1 H Nucleated RBC % 0 Sodium 132 L Potassium 3.5 Chloride 91 L Carbon Dioxide 13.0 L* Anion Gap 28 H BUN 137 H* Creatinine 11.1 H* Estim Creat Clear Calc Not Performed. eGFR 4 L* BUN/Creatinine Ratio [address] Glu mg/dL Hemoglobin A1c Calculated Osmolality 308 H Lactic Acid 0.5 Calcium 8.0 L Corrected Calcium 8.0 L Phosphorus Magnesium 2.6 Total Bilirubin 0.3 AST 25 ALT 28 Alkaline Phosphatase 87 Troponin I 0.058 H* Total Protein 8.2 Albumin 5.5 H Globulin 2.7 Albumin/Globulin Ratio 2.0 Procalcitonin 3.58 H TSH Ur Collection Type Cancelled Urine Color Cancelled Urine Clarity Cancelled Urine pH Cancelled Ur Specific [place] Cancelled Urine Protein Cancelled Urine Glucose (UA) Cancelled Urine Ketones Cancelled Urine Blood Cancelled Urine Nitrite Cancelled Urine Bilirubin Cancelled Urine Urobilinogen (Auto) Cancelled Ur Leukocyte Esterase Cancelled Urine RBC Cancelled Urine WBC Cancelled Ur Squamous Epith Cells Cancelled Ur Transition Epith Cell Cancelled Ur Renal Epithelial Cell Cancelled Calcium Carbonate Cryst Cancelled Calcium Phosphate Cryst Cancelled Calcium Oxalate Crystal Cancelled Leucine Crystals Cancelled Cystine Crystals Cancelled Uric Acid Crystals Cancelled Triple Phos Crystals Cancelled Tyrosine Crystals Cancelled Amorphous Crystals Cancelled Urine Bacteria Cancelled Cellular Casts Cancelled Epithelial Casts Cancelled Fatty Casts Cancelled Hyaline Casts Cancelled Granular Casts Cancelled Waxy Casts Cancelled Broad Casts Cancelled RBC Casts Cancelled Urine Mucus Cancelled Urine Trichomonas Cancelled Ur Yeast w Hypha[place] Cancelled Urine Yeast (Budding) Cancelled Urine Sperm Cancelled Ur Oval Fat Bodies Cancelled Stool for White Cells Stl C. diff Tox B Gene Urine Opiates Screen Urine Fentanyl Screen Ur Barbiturates Screen U Amphetamin/Meth Scrn U Benzodiazepines Scrn U Cocaine Metab Screen U Marijuana (THC) Screen Ethyl Alcohol < 3.0 11/25/24 11/25/24 11/26/24 23:15 23:31 02:00 WBC RBC Hgb Hct MCV MCH MCHC RDW Std Deviation Plt Count Neut % (Auto) Lymph % (Auto) [place] % (Auto) Eos % (Auto) Baso % (Auto) Neut # (Auto) Lymph # (Auto) [place] # (Auto) Eos # (Auto) Baso # (Auto) Immature Gran # (Auto) Absolute Nucleated RBC Immature Gran % Nucleated RBC % Sodium Potassium Chloride Carbon Dioxide Anion Gap BUN Creatinine Estim Creat Clear Calc eGFR BUN/Creatinine Ratio Glucose Estimated Ave Glu mg/dL Hemoglobin A1c Calculated Osmolality Lactic Acid Calcium Corrected Calcium Phosphorus Magnesium Total Bilirubin AST ALT Alkaline Phosphatase Troponin I 0.085 H* Total Protein Albumin Globulin Albumin/Globulin Ratio Procalcitonin TSH Ur Collection Type Catheter Urine Color Yellow Urine Clarity Turbid A Urine pH 5.5 Ur Specific [place] 1.016 Urine Protein 1+ A Urine Glucose (UA) Negative Urine Ketones Negative Urine Blood 1+ A Urine Nitrite Negative Urine Bilirubin Negative Urine Urobilinogen (Auto) Negative Ur Leukocyte Esterase Negative Urine RBC 3 Urine WBC 0 Ur Squamous Epith Cells < 1 Ur Transition Epith Cell Ur Renal Epithelial Cell Calcium Carbonate Cryst Calcium Phosphate Cryst Calcium Oxalate Crystal Leucine Crystals Cystine Crystals Uric Acid Crystals Triple Phos Crystals Tyrosine Crystals Amorphous Crystals Urine Bacteria None Cellular Casts Epithelial Casts Fatty Casts Hyaline Casts Granular Casts Waxy Casts Broad Casts RBC Casts Urine Mucus Urine Trichomonas Ur Yeast w Hyphae Urine Yeast (Budding) Urine Sperm Ur Oval Fat Bodies Stool for White Cells Few A Stl C. diff Tox B Gene Cancelled Urine Opiates Screen Negative Urine Fentanyl Screen Negative Ur Barbiturates Screen Negative U Amphetamin/Meth Scrn Negative U Benzodiazepines Scrn Negative U Cocaine Metab Screen Negative U Marijuana (THC) Screen Negative Ethyl Alcohol 11/26/24 04:59 WBC 4.4 D RBC 3.08 L Hgb 9.8 L D Hct 28.6 L MCV 93 MCH 31.8 MCHC 34.3 RDW Std Deviation 45.0 Plt Count 177 D Neut % (Auto) 68 Lymph % (Auto) 12 [place] % (Auto) 19 H Eos % (Auto) 1 Baso % (Auto) 1 Neut # (Auto) 3.0 Lymph # (Auto) 0.5 L [place] # (Auto) 0.8 Eos # (Auto) 0.0 Baso # (Auto) 0.0 Immature Gran # (Auto) 0.02 H Absolute Nucleated RBC 0.00 Immature Gran % 1 H Nucleated RBC % 0 Sodium 137 Potassium 2.4 L* D Chloride 102 Carbon Dioxide 15.4 L Anion Gap 20 H BUN 113 H* Creatinine 8.5 H* D Estim Creat Clear Calc 6.1 L eGFR 5 L* BUN/Creatinine Ratio [address] Glu mg/dL 126 Hemoglobin A1c 6.0 Calculated Osmolality 309 H Lactic Acid Calcium 6.9 L Corrected Calcium Phosphorus 9.2 H Magnesium Total Bilirubin AST ALT Alkaline Phosphatase Troponin I 0.075 H* Total Protein Albumin Globulin Albumin/Globulin Ratio Procalcitonin TSH 0.20 L Ur Collection Type Urine Color Urine Clarity Urine pH Ur Specific [place] Urine Protein Urine Glucose (UA) Urine Ketones Urine Blood Urine Nitrite Urine Bilirubin Urine Urobilinogen (Auto) Ur Leukocyte Esterase Urine RBC Urine WBC Ur Squamous Epith Cells Ur Transition Epith Cell Ur Renal Epithelial Cell Calcium Carbonate Cryst Calcium Phosphate Cryst Calcium Oxalate Crystal Leucine Crystals Cystine Crystals Uric Acid Crystals Triple Phos Crystals Tyrosine Crystals Amorphous Crystals Urine Bacteria Cellular Casts Epithelial Casts Fatty Casts Hyaline Casts Granular Casts Waxy Casts Broad Casts RBC Casts Urine Mucus Urine Trichomonas Ur Yeast w [place]pha[place] Urine Yeast (Budding) Urine Sperm Ur Oval Fat Bodies Stool for White Cells Stl C. diff Tox B Gene Urine Opiates Screen Urine Fentanyl Screen Ur Barbiturates Screen U Amphetamin/Meth Scrn U Benzodiazepines Scrn U Cocaine Metab Screen U Marijuana (THC) Screen Ethyl Alcohol Quality Measures Quality Measures none Assessment & Plan Assessment Current Active Medications: Generic Name Dose Route Start Last Admin Trade Name Freq PRN Reason Stop Dose Admin Acetaminophen 650 mg 11/25/24 21:47 Acetaminophen 325 Mg Tablet PO 12/25/24 21:46 Q6H PRN Fever >101.5 Hydrocodone Bitart/Acetaminophen 1 tab 11/25/24 23:34 Hydrocodone/Apap 7.5/325 Tablet PO 12/01/24 08:59 BID PRN pain Albuterol/Ipratropium 3 ml 11/25/24 23:29 Albuterol/Ipratropium (Duoneb) Rt Brittany 3 Ml Nebu INH 12/26/24 02:59 Q4HRRT PRN shortness of breath or wheezing Heparin Sodium (Porcine) 5,000 unit 11/25/24 22:00 11/26/24 05:11 Heparin Sod Inj 5000 Unit/Ml Vial SC 12/09/24 21:59 5,000 unit Q8HR ERI Administration Lactated Ringer's 1,000 mls @ 75 mls/hr 11/25/24 22:39 11/25/24 22:47 Lactated Ringers IV 11/26/24 11:14 75 mls/hr .[id number] ONE Administration Potassium Chloride 10 meq in 100 mls @ 100 mls/hr 11/26/24 08:30 11/26/24 09:46 Kcl Ivpb IV 11/26/24 10:29 100 mls/hr Q1H ERI Administration Protocol Montelukast Sodium 10 mg 11/26/24 21:00 Montelukast Sodium 10 Mg Tablet PO 12/26/24 20:59 HS ERI Ondansetron HCl 4 mg 11/25/24 21:47 Ondansetron Inj 2 Mg/Ml Inj 2 Ml IV 12/25/24 21:46 Q6H PRN NAUSEA OR VOMITING Protocol Plan Patient is a 64-year-old female poor historian with a medical history of bipolar disorder, primary hypertension, dementia, COPD, chronic constipation, hyperlipidemia, chronic pain, 1 episode of previous seizure-like activity who presented to [facility] emergency department on 11/25/2024 with chief complaint of intractable diarrhea plus nausea/vomiting, generalized weakness, and a fall. In the emergency department patient was found to have severe MAYELIN with metabolic acidosis and thus hospitalist team was consulted for continuation of care. #Acute Kidney Injury #Anion Gap Metabolic Acidosis Most likely secondary to prerenal azotemia in the setting of severe diarrhea and nausea plus vomiting On admission creatinine 11.1 and BUN 137 (baseline creatinine approx. 0.9) Nephrology consulted, recommendations appreciated Order bilateral renal ultrasound On Admission AG 28 and bicarb 13.0 -most likely secondary to uremia +/- starvation ketoacidosis with delta gap of 14 with possible contraction alkalosis? Since admission patient has received 6 L of fluids -Renal ultrasound findings: Right renal cyst 4.3 x 3.9 x 3.5 cm, Moderate bilateral renal parenchymal scar formation, No hydronephrosis Plan: -Nephrology consulted -Patient started on IV maintenance fluids with 3 Amps of bicarb. -Urinalysis negative for UTI. -Avoid nephrotoxic agents and renally dose medications. -Will repeat BMP and decide if patient needs more fluids #Intractable diarrhea #Intractable nausea/vomiting #Severe dehydration #Generalized weakness w/ fall #?pulmonary contusion Per patient she has had profuse watery brown diarrhea for 5 days with over 20 episodes a day with 5 episodes of vomiting per day. Of note patient is a poor historian. Denies any sick contacts, travel, exposure to [place] Dehydration Secondary to intractable diarrhea causing severe dehydration and weakness CT head wo: Negative for acute hemorrhage, mass effect or midline shift CT C/A/P: Pulmonary contusion or hemothorax Plan: -Order stool WBCs, stool culture, C. difficile, norovirus, and giardia. Zofran as needed for nausea. -Continue maintenance fluids. -We will defer starting oral antibiotic and antidiarrheal for now until further stool studies are available. -Physical therapy consultation ordered #Troponinemia Denies chest pain On admission troponin elevated to 0.058 Most likely secondary to demand ischemia unrelated to ACS EKG showed sinus rhythm, rate 87, LVH criteria, and nonspecific ST changes Plan: -Continue to trend troponin every 8 hours or until downtrend. -EKG as needed if chest pain develops. #Hypocalcemia Mild, likely secondary to poor oral intake, on admission corrected calcium 8.0 Plan: -Replace as needed and repeat level in AM. #COPD -Not in acute exacerbation. As needed DuoNebs ordered. # History of bipolar disorder #Dementia -Early onset although type unknown, Pt is poor historian. Resume home memantine and donepezil when able. #Primary hypertension - Blood pressure soft on admission and we will hold oral antihypertensives for now, will resume when able #Chronic pain - Resume home [place] as needed. #Hyperlipidemia -Resume home statin when tolerating oral diet Hospital Maintenance: Dispo: Tele DVT ppx: Heparin GI ppx: not needed Diet: Regular IV lines: Peripheral Code status: Full Assessment and plan discussed with my senior resident Dr. Kumar & attending physician Dr. Wendy Sandoval (PGY-1)- Internal medicine resident Attending Provider Attestation/Addendum Lucero Xiong, , attest that I was physically present for the mcconnell portions of the service and evaluated the patient with the resident and I reviewed and discussed the case with the resident and agree with the resident's findings and plans of care as documented above Patient seen and eval this a.m. She reports feeling sick, but slightly improved as her nausea and vomiting has improved. Patient did tolerate her breakfast this morning. However, she is not complaining of some heartburn. She states that she has been having diarrhea for at least 5 days. She lives in her own quarters on the same property as her who will check on her. Patient had a recent fall and noted to have a laceration that is healing over her left brow with mild edema. Patient denies any active abdominal pain or dysuria. She denies any recent antibiotic use. However, patient is noted to have been given antibiotics in October. Will check for infectious causes of diarrhea. Patient denies any history of C. difficile in the past. Patient also denies any decrease in urinary frequency. Patient was found to have acute renal failure on presentation, likely due to dehydration and copious diarrhea. Will replete potassium and continue with IV fluids. Bicarb has been discontinued. Nephrology following.
[2024-11-26] MEDS: HYDROcodone/APAP 7.5/325 TABLET 1 TAB PO ×2 (10:40→23:01)
[2024-11-26 12:23] LABS: Anion Gap 16 (7-16); BUN/Creatinine Ratio 15 Ratio (12-20); Blood Urea Nitrogen 103 mg/dL (9-23); Calcium 7.1 mg/dL (8.3-10.6); Carbon Dioxide 15.9 mMol/L (20.0-31.0); Chloride 105 mMol/L (98-107); Estimated Creatinine Clearance 7.4 mL/min (>60); Glucose 109 mg/dL (74-106); Osmolality,Calculated 307 (275-295); Potassium 2.8 mMol/L (3.4-5.1); Sodium 137 mMol/L (136-145); eGFR 6 See Note
[2024-11-26] MEDS: RINGERS LACTATED 1000 ML 1,000 ML 125 ML IV ×2 (13:22→20:36)
--- NOTE | 2024-11-26 14:13 | ESCONSULT_ITS ---
RE: TRUMAN BYRD : 1960 DATE OF CONSULTATION: 11/26/2024 REASON FOR REFERRAL: Acute kidney injury. REFERRING PHYSICIAN: Hospitalist. HISTORY OF PRESENT ILLNESS: This patient is a 64-year-old woman with past medical history significant for hypertension, seizure disorder, bipolar disorder and history of SVT, status post cardioversion who presented to the emergency room last night with diarrhea and vomiting for the past 6 days. When she arrived, she was found with a BUN of 137, creatinine of 11.1, CO2 of 13, sodium of 132 and potassium of 3.5. Her BPs while in ED was 80-90's/50-60's. Her CT of the chest, abdomen, and pelvis did not show any significant findings. She denies fever. She was started on sodium bicarbonate drip for her severe acidosis and was admitted to Telemetry. The patient's potassium went down to as low as 2.3 and was given IV potassium rider . The patient's BUN and creatinine started to improve and today BUN is at 113 with creatinine of 8.5. The patient's baseline serum creatinine is around 0.9 to 1.2 mg/dl. She said that she is feeling a little bit better and has stopped vomiting, but still has some diarrhea. She said that she was very weak yesterday, but she is better today. PAST MEDICAL HISTORY: History of vomiting and diarrhea in the past as well. ALLERGIES: NO KNOWN DRUG ALLERGIES. CURRENT MEDICATIONS: 1. Acetaminophen. 2. Calcium carbonate 650 mg p.o. x1. 3. Heparin 5000units SC two times a day. 4. Ondansetron PHYSICAL EXAMINATION: GENERAL: She is awake, alert, and oriented. VITAL SIGNS: Blood pressure of 108/61 previously, blood pressures were running in the 80s/50s to 90s/60s. HEENT: Anicteric sclera. Normocephalic. NECK: Supple. No JVD. CHEST AND LUNGS: Symmetrical expansion. Clear breath sounds. HEART: Without murmur. ABDOMEN: Soft. Nontender. EXTREMITIES: No edema. LABORATORY DATA: Hemoglobin 9.8, WBC 4,400, plate count 157,000. Sodium 137, potassium 2.8, chloride 105, sodium 15.9, BUN 103, creatinine 7, calcium 6.1, glucose 109. ASSESSMENT: 1. Acute kidney injury, most likely secondary to severe dehydration from diarrhea and vomiting. 2. Nausea and vomiting. 3. Severe acidosis secondary to acute kidney injury and diarrhea 4. Diarrhea. 5. Vomiting. 6. Bipolar disorder. PLAN: I believe that the patient is going to the right direction at this point. We will continue IV fluids and for now I will use lactated Ringer's solution 125 mL per hour. Potassium should also be corrected with IV K riders. Calcium is lower as patient was on bicarbonate drip, which can also lower down the calcium level. Continue to monitor her urine output, kidney function, electrolytes on a daily basis and replete as needed. DT: 13:21:37 TT: 14:07:00 Ref: [id number] - TID: [id number] MTDD
[2024-11-26] MEDS: POTASSIUM CHL 10 mEq IVPB 10 MEQ/100 ML BAG 75 MEQ IV (14:48)
[2024-11-26] MEDS: CALCIUM GLUC/NS 1000MG IVPB 1,000 MG/50 ML BAG 50 MG IV (14:48)
[2024-11-26 16:28] LABS: Potassium 3.1 mMol/L (3.4-5.1)
[2024-11-26 16:29] LABS: Troponin I 0.053 ng/mL (0.0-0.045)
[2024-11-26 18:04] LABS: Clostridium Difficile PCR Positive (Negative)
[2024-11-26] MEDS: VANCOMYCIN 125 MG CAPSULE PO (20:35)
[2024-11-26] MEDS: MONTELUKAST SODIUM 10 MG TABLET PO (20:36)
[2024-11-27] VITALS (9 sets, daily range): BP systolic 124–145; BP diastolic 66–83; PULSE 77–109; RESP 18–20; TEMP 36.2–36.7; O2SAT 94–99
[2024-11-27 01:25] LABS: Anion Gap 11 (7-16); BUN/Creatinine Ratio 17 Ratio (12-20); Blood Urea Nitrogen 85 mg/dL (9-23); Carbon Dioxide 17.1 mMol/L (20.0-31.0); Chloride 109 mMol/L (98-107); Estimated Creatinine Clearance 10.3 mL/min (>60); Glucose 109 mg/dL (74-106); Osmolality,Calculated 300 (275-295); Potassium 3.7 mMol/L (3.4-5.1); Sodium 137 mMol/L (136-145); eGFR 9 See Note
[2024-11-27 01:26] LABS: Albumin, Serum 3.6 gm/dL (3.4-4.8); Calcium (Corrected) 8.3 mg/dL (8.5-10.1); Phosphorous 3.5 mg/dL (2.4-5.1)
[2024-11-27] MEDS: HEPARIN SOD INJ 5000 UNIT/ML VIAL SC ×3 (05:27→21:33)
[2024-11-27] MEDS: VANCOMYCIN 125 MG CAPSULE PO ×4 (05:27→21:33)
[2024-11-27] MEDS: RINGERS LACTATED 1000 ML 1,000 ML 125 ML IV ×3 (05:28→21:32)
[2024-11-27 06:16] LABS: Basophils % (Auto) 1 % (0-2.5); Eosinophils # (Auto) 0.1 Thou/mm3 (0.0-0.5); Eosinophils % (Auto) 1 % (0-10); Hematocrit 28.7 % (36.0-46.0); Hemoglobin 9.5 g/dL (12.0-16.0); Immature Granulocytes % (Auto) 1 % (0-0); Immature Granulocytes Auto 0.03 Thou/mm3 (0.00-0.00); Lymphocytes # (Auto) 0.7 Thou/mm3 (1.0-4.8); Lymphocytes % (Auto) 16 % (10-50); Mean Corpuscular HGB Conc 33.1 g/dl (31.0-37.0); Mean Corpuscular Hemoglobin 31.3 pg (25.0-35.0); Mean Corpuscular Volume 94 fL (80-100); Monocytes # (Auto) 0.8 Thou/mm3 (0.0-0.8); Monocytes % (Auto) 18 % (0-12); Neutrophils # (Auto) 2.8 Thou/mm3 (1.8-7.7); Neutrophils % (Auto) 64 % (37-80); Nucleated Red Blood Cell % 0 /100 WBC (0); Platelet Count 166 Thou/mm3 (140-440); RDW Standard Deviation 45.3 fL (36.4-46.3); Red Blood Count 3.04 Miln/mm3 (4.00-5.20); White Blood Count 4.3 Thou/mm3 (3.6-11.0)
[2024-11-27 06:49] LABS: Albumin, Serum 3.7 gm/dL (3.4-4.8); Anion Gap 11 (7-16); BUN/Creatinine Ratio 18 Ratio (12-20); Blood Urea Nitrogen 83 mg/dL (9-23); Calcium 8.4 mg/dL (8.3-10.6); Calcium (Corrected) 8.6 mg/dL (8.5-10.1); Carbon Dioxide 18.9 mMol/L (20.0-31.0); Chloride 108 mMol/L (98-107); Creatinine (Component) 4.5 mg/dL (0.6-1.3); Estimated Creatinine Clearance 11.7 mL/min (>60); Glucose 97 mg/dL (74-106); Magnesium 1.6 mg/dL (1.6-2.6); Osmolality,Calculated 300 (275-295); Phosphorous 3.9 mg/dL (2.4-5.1); Potassium 3.3 mMol/L (3.4-5.1); Sodium 138 mMol/L (136-145); eGFR 10 See Note
[2024-11-27] MEDS: POTASSIUM CHLORIDE 20 mEq TABCR 40 MEQ PO (08:24)
--- NOTE | 2024-11-27 13:50 | PC.SS ---
SS met with patient regarding her d/c plan. Pt is alert/oriented. Pt was admitted for MAYELIN. Pt confirmed demographic and contact information is correct on facesheet. Pt resides alone. Pt ambulates independently without assistance or DME. Pt is ok with all ADLs. Patient?s pharmacy of choice is [facility]. Pt named her , [facility] medical decision maker if she is unable. SS provided verbal choices for d/c to home or SNF. Patient?s choice is to return home upon d/c. Pt does not have an advance directive, SS offered, and pt declined. Pt states not diabetic and is not on dialysis. Pt states she last followed up with PCP one month ago (October 2024). D/C plan: Return home Next of Kin: [facility], phone# [phone] PCP: Dr. Benjie Morales Address: Correct on facesheet
[2024-11-27] MEDS: ACETAMINOPHEN 325 MG TABLET 650 MG PO (14:40)
--- NOTE | 2024-11-27 15:29 | ESPR_ITS ---
Documentation for date of: 11/27/24 Senior resident attestation: The patient is a 64-year-old female, past medical history of bipolar disorder, hypertension, seizure disorder, COPD and dementia, who was brought into the emergency room following intractable vomiting and diarrhea. Also reported a fall. Patient was found to have MAYELIN with metabolic acidosis on labs and admitted to medical floor. Workup for diarrhea reveals patient tested positive for C. difficile toxin. #MAYELIN?likely secondary to prerenal azotemia in the setting of severe volume depletion, initial creatinine 11.1, BUN 137, of note patient had normal baseline creatinine of prior labs. Also noticed anion gap metabolic acidosis, nephrology was consulted and patient was started on maintenance IV fluids, Dr York recommended bicarb infusion initially, but switched to IV LR due to concern for hypocalcemia. Noted improvement in BUN and creatinine following IV fluid. Continue IV fluids for now downtrending creatinine. #C. difficile colitis?severe?patient meets criteria for severe C. difficile colitis given creatinine more than 1.5, started on p.o. vancomycin 125 mg 4 times daily for 10 days. #Diarrhea,?2 episode of diarrhea overnight, IV fluids to help with volume resuscitation, antibiotics for C. difficile colitis. #Vomiting?currently asymptomatic, Zofran for nausea as needed. #Type II MD?troponin anemia likely secondary to demand ischemia. Patient evaluated and examined at the bedside, plan of care discussed with rest of the team including my attending physician, except as noted. Quresh PGY2 Subjective Subjective Interval history: 11/27: No acute overnight events. Patient seen and examined at bedside this morning. Patient endorses significant improvement in her symptoms she states her lower abdominal pain is minimal now. Patient had 2 diarrheal episodes last night. Patient is informed of her stool culture positive for C. difficile for which she will continue oral antibiotics and IV fluids for dehydration. Patient has been tolerating oral diet she states she usually does not eat much of her breakfast because she does not like it but she eats all of her lunch and dinner. patient denies any fever, nausea, vomiting or chest pain. Patient states she would like to go home where her lives on the same property and takes care of her she does not want to go to SNF. Patient has no other complaints. Exam Vital Signs Temp Pulse Resp BP Pulse Ox O2 Del Method 97.9 F 108 H 20 128/68 96 Room Air 11/27/24 12:00 11/27/24 12:00 11/27/24 12:00 11/27/24 12:00 11/27/24 12:00 11/27/24 08:00 Narrative Exam General: Awake. HEENT: Normocephalic, atraumatic, mucous membranes moist. Heart: Regular rate and rhythm, no murmurs. Lungs: Clear to auscultation with no wheezing or crackles. Abdomen: Soft, nondistended, mildly tender below umbilicus, positive bowel sounds. ?No guarding or rebound tenderness. Neurologic: Alert and oriented x3, no gross neurological deficit, and patient able to move all 4 extremities. Extremities: No edema. Skin: No rash or ecchymoses, about 2 cm laceration on upper side of left eyebrow Objective Labs 11/28/24 05:18 11/28/24 05:18 Labs: Laboratory Results - last 24 hr 11/26/24 11/26/24 11/27/24 10:48 15:10 00:17 WBC RBC Hgb Hct MCV MCH MCHC RDW Std Deviation Plt Count Neut % (Auto) Lymph % (Auto) [place] % (Auto) Eos % (Auto) Baso % (Auto) Neut # (Auto) Lymph # (Auto) [place] # (Auto) Eos # (Auto) Baso # (Auto) Immature Gran # (Auto) Absolute Nucleated RBC Immature Gran % Nucleated RBC % Sodium 137 Potassium 3.1 L 3.7 D Chloride 109 H Carbon Dioxide 17.1 L Anion Gap 11 BUN 85 H Creatinine 5.0 H* D Estim Creat Clear Calc 10.3 L eGFR 9 L* BUN/Creatinine Ratio 17 Glucose 109 H Calculated Osmolality 300 H Calcium 8.0 L Corrected Calcium 8.3 L Phosphorus 3.5 Magnesium Troponin I 0.053 H* Albumin 3.6 D Stl C. diff Tox B Gene Positive A 11/27/24 05:37 WBC 4.3 RBC 3.04 L Hgb 9.5 L Hct 28.7 L MCV 94 MCH 31.3 MCHC 33.1 RDW Std Deviation 45.3 Plt Count 166 Neut % (Auto) 64 Lymph % (Auto) 16 [place] % (Auto) 18 H Eos % (Auto) 1 Baso % (Auto) 1 Neut # (Auto) 2.8 Lymph # (Auto) 0.7 L [place] # (Auto) 0.8 Eos # (Auto) 0.1 Baso # (Auto) 0.0 Immature Gran # (Auto) 0.03 H Absolute Nucleated RBC 0.00 Immature Gran % 1 H Nucleated RBC % 0 Sodium 138 Potassium 3.3 L Chloride 108 H Carbon Dioxide 18.9 L Anion Gap 11 BUN 83 H Creatinine 4.5 H* D Estim Creat Clear Calc 11.7 L eGFR 10 L* BUN/Creatinine Ratio 18 Glucose 97 Calculated Osmolality 300 H Calcium 8.4 Corrected Calcium 8.6 Phosphorus 3.9 Magnesium 1.6 Troponin I Albumin 3.7 Stl C. diff Tox B Gene Quality Measures Quality Measures none Assessment & Plan Assessment Current Active Medications: Generic Name Dose Route Start Last Admin Trade Name Freq PRN Reason Stop Dose Admin Acetaminophen 650 mg 11/25/24 21:47 11/27/24 14:40 Acetaminophen 325 Mg Tablet PO 12/25/24 21:46 650 mg Q6H PRN Administration Fever >101.5 Hydrocodone Bitart/Acetaminophen 1 tab 11/25/24 23:34 11/26/24 23:01 Hydrocodone/Apap 7.5/325 Tablet PO 12/01/24 08:59 1 tab BID PRN Administration pain Albuterol/Ipratropium 3 ml 11/25/24 23:29 Albuterol/Ipratropium (Duoneb) Rt Brittany 3 Ml Nebu INH 12/26/24 02:59 Q4HRRT PRN shortness of breath or wheezing Heparin Sodium (Porcine) 5,000 unit 11/25/24 22:00 11/27/24 14:42 Heparin Sod Inj 5000 Unit/Ml Vial SC 12/09/24 21:59 5,000 unit Q8HR ERI Administration Lactated Ringer's 1,000 mls @ 125 mls/hr 11/26/24 12:52 11/27/24 05:28 Lactated Ringers IV 12/26/24 12:51 125 mls/hr .Q8H ERI Administration Montelukast Sodium 10 mg 11/26/24 21:00 11/26/24 20:36 Montelukast Sodium 10 Mg Tablet PO 12/26/24 20:59 10 mg HS ERI Administration Ondansetron HCl 4 mg 11/25/24 21:47 Ondansetron Inj 2 Mg/Ml Inj 2 Ml IV 12/25/24 21:46 Q6H PRN NAUSEA OR VOMITING Protocol Vancomycin HCl 125 mg 11/26/24 21:00 11/27/24 12:11 Vancomycin 125 Mg Capsule PO 12/06/24 17:01 125 mg QID ERI Administration Plan Patient is a 64-year-old female poor historian with a medical history of bipolar disorder, primary hypertension, dementia, COPD, chronic constipation, hyperlipidemia, chronic pain, 1 episode of previous seizure-like activity who presented to [facility] emergency department on 11/25/2024 with chief complaint of intractable diarrhea plus nausea/vomiting, generalized weakness, and a fall. In the emergency department patient was found to have severe MAYELIN with metabolic acidosis and thus hospitalist team was consulted for continuation of care. #Acute Kidney Injury #Anion Gap Metabolic Acidosis Most likely secondary to prerenal azotemia in the setting of severe diarrhea and nausea plus vomiting On admission creatinine 11.1 and BUN 137 (baseline creatinine approx. 0.9) Nephrology consulted, recommendations appreciated Order bilateral renal ultrasound On Admission AG 28 and bicarb 13.0 -most likely secondary to uremia +/- starvation ketoacidosis with delta gap of 14 with possible contraction alkalosis? Since admission patient has received 6 L of fluids -Renal ultrasound findings: Right renal cyst 4.3 x 3.9 x 3.5 cm, Moderate bilateral renal parenchymal scar formation, No hydronephrosis Plan: -Nephrology consulted -Patient started on IV maintenance fluids with 3 Amps of bicarb. -Urinalysis negative for UTI. -Avoid nephrotoxic agents and renally dose medications. -Will repeat BMP and decide if patient needs more fluids #C.diff enterocolitis #Intractable nausea/vomiting- resolved #Severe dehydration-improving #Generalized weakness w/ fall Per patient she has had profuse watery brown diarrhea for 5 days with over 20 episodes a day with 5 episodes of vomiting per day. Of note patient is a poor historian. Denies any sick contacts, travel, exposure to [place] Dehydration Secondary to intractable diarrhea causing severe dehydration and weakness CT head wo: Negative for acute hemorrhage, mass effect or midline shift Plan: -Stool cultures are positive for C. difficile -Order stool WBCs, norovirus, and giardia. Zofran as needed for nausea. -Continue maintenance fluids. -started oral vancomycin 11/26- -Physical therapy consultation ordered #Troponinemia Denies chest pain On admission troponin elevated to 0.058 Most likely secondary to demand ischemia unrelated to ACS EKG showed sinus rhythm, rate 87, LVH criteria, and nonspecific ST changes Plan: -Continue to trend troponin every 8 hours or until downtrend. -EKG as needed if chest pain develops. #Hypocalcemia Mild, likely secondary to poor oral intake, on admission corrected calcium 8.0 Plan: -Replace as needed and repeat level in AM. #COPD -Not in acute exacerbation. As needed DuoNebs ordered. # History of bipolar disorder #Dementia -Early onset although type unknown, Pt is poor historian. Resume home memantine and donepezil when able. #Primary hypertension - Blood pressure soft on admission and we will hold oral antihypertensives for now, will resume when able #Chronic pain - Resume home Lorim[place] as needed. #Hyperlipidemia -Resume home statin when tolerating oral diet Hospital Maintenance: Dispo: Tele DVT ppx: Heparin GI ppx: not needed Diet: Regular IV lines: Peripheral Code status: Full Assessment and plan discussed with my senior resident Dr. Kumar & attending physician Dr. Wendy Sandoval (PGY-1)- Internal medicine resident Attending Provider Attestation/Addendum I, Lucero Nguyen DO, attest that I was physically present for the mcconnell portions of the service and evaluated the patient with the resident and I reviewed and discussed the case with the resident and agree with the resident's findings and plans of care as documented above Patient seen and evaluated this AM. She states she is feeling slightly improved, but continues to have multiple episodes of diarrhea. Started on oral vancomycin as patient tested positive for C.diff. Renal function improving, will continue with IV fluid hydration. Patient was seen by PT and states that she will not go to a SNF. She states her can care for her at home. Will order PT on discharge.
[2024-11-27] MEDS: MONTELUKAST SODIUM 10 MG TABLET PO (21:33)
[2024-11-28] VITALS: BP 142/79; PULSE 104; PULSE 105; RESP 18; TEMP 36.6; O2SAT 97
[2024-11-28] MEDS: RINGERS LACTATED 1000 ML 1,000 ML 125 ML IV (03:21)
[2024-11-28 04:00] VITALS: BP 147/82; PULSE 103; PULSE 104; RESP 16; TEMP 36.7; O2SAT 97
[2024-11-28 05:35] VITALS: BMI 25.7
[2024-11-28] MEDS: VANCOMYCIN 125 MG CAPSULE PO (05:58)
[2024-11-28] MEDS: HEPARIN SOD INJ 5000 UNIT/ML VIAL SC (05:58)
[2024-11-28 06:06] LABS: Basophils % (Auto) 0 % (0-2.5); Eosinophils % (Auto) 1 % (0-10); Hematocrit 29.1 % (36.0-46.0); Hemoglobin 9.7 g/dL (12.0-16.0); Immature Granulocytes % (Auto) 2 % (0-0); Lymphocytes # (Auto) 0.5 Thou/mm3 (1.0-4.8); Lymphocytes % (Auto) 9 % (10-50); Mean Corpuscular HGB Conc 33.3 g/dl (31.0-37.0); Mean Corpuscular Hemoglobin 31.4 pg (25.0-35.0); Mean Corpuscular Volume 94 fL (80-100); Monocytes # (Auto) 0.8 Thou/mm3 (0.0-0.8); Monocytes % (Auto) 14 % (0-12); Neutrophils # (Auto) 4.4 Thou/mm3 (1.8-7.7); Neutrophils % (Auto) 75 % (37-80); Nucleated Red Blood Cell % 0 /100 WBC (0); Platelet Count 194 Thou/mm3 (140-440); RDW Standard Deviation 44.3 fL (36.4-46.3); Red Blood Count 3.09 Miln/mm3 (4.00-5.20); White Blood Count 5.9 Thou/mm3 (3.6-11.0)
[2024-11-28 06:51] LABS: Anion Gap 8 (7-16); BUN/Creatinine Ratio 21 Ratio (12-20); Blood Urea Nitrogen 52 mg/dL (9-23); Calcium 8.8 mg/dL (8.3-10.6); Chloride 107 mMol/L (98-107); Creatinine (Component) 2.5 mg/dL (0.6-1.3); Glucose 98 mg/dL (74-106); Osmolality,Calculated 287 (275-295); Potassium 3.4 mMol/L (3.4-5.1); Sodium 137 mMol/L (136-145); eGFR 21 See Note
[2024-11-28 08:00] VITALS: BP 146/105; PULSE 102; RESP 20; TEMP 36.3; O2SAT 98
[2024-11-28] MEDS: ONDANSETRON INJ 2 MG/ML INJ 2 ML 4 MG IV (08:22)
[2024-11-28 08:36] VITALS: PULSE 105; RESP 11; O2SAT 96
--- NOTE | 2024-11-28 08:45 | PC.NURSE ---
per Dr. Sandoval Pt. can be DC home. DC catheter now. If pt. does not urinate before Dc then that is OKAY. Passed on report to nurse taking over, [place]. [place] aware of verbal statement.
--- NOTE | 2024-11-28 09:04 | PC.SS ---
Follow up note: Creatine is 2.5. Waiting for kidney function to improve. Pt will return home with Home Health Services.
--- NOTE | 2024-11-28 10:12 | PC.NURSE ---
0900 ASSUMED CARE OF PATIENT FROM MICHELE PHILLIPS. PATIENT EAGER TO GO HOME AND HAS REMOVED HER IV HERSELF INFORMED MY PREVIUOS NURSE. 0940 PATIENT IS DRESSED, DISCHARGE INSTRUCTIONS GIVEN. INFORMED MUST WAIT TILL 10AM TO LEAVE. WAS NOT HAPPY WITH INFORMATION. STATED HER RIDE IS WAITING DOWN STAIRS.
--- NOTE | 2024-11-28 10:27 | ESDS_ITS ---
<Statement entered by Lucero Nguyen DO - 11/28/24 15:28> I, Lucero Nguyen DO, attest that I was physically present for the mcconnell portions of the service and evaluated the patient with the resident and I reviewed and discussed the case with the resident and agree with the resident's findings and plans of care as documented above Planned Discharge Date 11/28/24 DS: Providers Provider Date of admission: 11/25/24 21:48 Primary care physician: Benjie Morales MD Admitting Provider: Madan Katz MD Attending Provider on Admission: Lucero Nguyen DO Consults: 11/25/24 19:23 Consult to Nephrology Stat Comment: Consulting Provider: Laureen York 11/25/24 23:18 Referral Physical Therapy Routine Comment: Physician Instructions: Attending Provider on DC: Marko Sandoval MD Discharging Provider: Marko Sandoval MD DS: Diagnosis Problem List Completed Was Problem List Reviewed/Reconciled?: Yes Hospital Course Hospital Course Hospital course: Ms. Cox is a 64-year-old female with past medical history of hypertension, seizure disorder [2021] not on medication, bipolar, dementia, chronic diarrhea, chronic back pain, history of SVT s/p cardioversion presented to [facility] ED on 11/25/2024 with chief complaint of intractable nausea, vomiting and diarrhea for 5 days. Patient denied any recent travels, unusual diet or recent sick contacts. On admission patient continued to complain of nausea and had multiple episodes of diarrhea containing brown watery stools without any associated mucus or blood. Patient also had mild abdominal tenderness. Patient also complained of multiple syncopal episodes and falls. Patient denied loss of consciousness or abnormal movements and also denied associated tongue bite. Patient states she has not had anything to eat or drink in more than a week. Patient was found to have C. difficile positive stool culture and was started on oral vancomycin, and patient acute kidney injury secondary to prerenal azotemia in the setting of dehydration. Patient was given IV fluids along with oral vancomycin. Patient's creatinine significantly improved, her symptoms of nausea and vomiting completely resolved. And patient had less than 5 bowel movements daily. Patient is hemodynamically stable and ready to be discharged home under the care of her Pro. Patient also cleared for discharge by nephrology. Patient is strongly advised to drink plenty of fluids to stay hydrated and if her symptoms return or worsen to promptly return to the ED. Images Head CT: Negative for acute hemorrhage, mass effect or midline shift EKG: Sinus rhythm, left ventricular hypertrophy and ST-T wave changes Chest/abdomen/pelvis: No hemopericardium, No pneumothorax pulmonary contusion or hemothorax Renal ultrasound: Right renal cyst 4.3 x 3.9 x 3.5 cm, Moderate bilateral renal parenchymal scar formation, No hydronephrosis Chest x-ray: No aspiration pneumonia Discharge Recommendations Recommend with holding lisinopril for now due to acute kidney injury. Follow up with PCP for repeat renal panel in next 2 days. Please complete treatment for close individual colitis with antibiotic vancomycin 125 mg 4 times daily through December 07 to complete 10 days of treatment. Recommend maintaining adequate hydration, at least 64 ounces of water daily. In case of worsening symptoms, please return to the emergency room. Hospitalization Diagnosis #Severe C.diff enterocolitis #Acute renal failure #Anion Gap Metabolic Acidosis #Intractable nausea/vomiting- resolved #Severe dehydration-improving #Generalized weakness w/ fall #Troponinemia #Hypocalcemia #COPD # History of bipolar disorder #Dementia #Primary hypertension #Chronic pain #Hyperlipidemia Assessment and plan discussed with my attending physician Dr. José Sandoval (PGY-1)- Internal medicine resident Time Spent with Patient Time attestation: Total time spent providing and/or coordinating discharge services: Home Health Home Health Referral Orders: 11/27/24 10:00 Home Health Referral Routine Reason For Exam: weakness Home-Bound The patient must either because of illness or injury, need the aid of supportive devices such as crutches, canes, wheelchairs, and walkers; the use of special transportation; or the assistance of another person in order to leave their place of residence; OR have a condition such that leaving his or her home is medically contraindicated. In addition, the patient also meets the following criteria: patient is normally unable to leave the home and leaving home requires considerable taxing effort. Addendum to Home Health Certification Practitioner's Certification: I certify that the patient has been under my care in the hospital and the care of attending physician (see below). We had a [id number] encounter on (see date below). My clinical findings indicate that the patient is home bound per the above criteria and the Home Health Services noted in these orders are medically necessary. The primary reason for the [id number]-[id number] encounter is related to the fact that the patient requires home health services. Date Certifying Zfok-pi-Ulwu Physician Encounter: 11/25/24 Physician's Name who will Assume Oversight for HH Services: Benjie Morales Physician's Phone No.who will Assume Oversight [facility] Service: [facility] - Critical Access Hospital Resources: No PT to Evaluate: Yes PT to evaluate and provide a treatmnet plan to increase patient's mobility and strength. Wound Care: No IV Therapy: No RN Safety Evaluation: Yes RN to evaluate and create a plan of care that will produce positive outcomes. Palliative Treatment: No Palliative treatment and evaluate the need for hospice. Home Health Aide - Personal Care: Yes Home Health Aide to assist with any ADL's. 11/27/24 16:45 Home Health Referral Routine Reason For Exam: diarrhea Home-Bound The patient must either because of illness or injury, need the aid of supportive devices such as crutches, canes, wheelchairs, and walkers; the use of special transportation; or the assistance of another person in order to leave their place of residence; OR have a condition such that leaving his or her home is medically contraindicated. In addition, the patient also meets the following criteria: patient is normally unable to leave the home and leaving home requires considerable taxing effort. Addendum to Home Health Certification Practitioner's Certification: I certify that the patient has been under my care in the hospital and the care of attending physician (see below). We had a [id number] encounter on (see date below). My clinical findings indicate that the patient is home bound per the above criteria and the Home Health Services noted in these orders are medically necessary. The primary reason for the fkar-eh-[id number] encounter is related to the fact that the patient requires home health services. Date Certifying [id number] Physician Encounter: 11/25/24 Physician's Name who will Assume Oversight for HH Services: Benjie Morales Physician's Phone No.who will Assume Oversight [facility] Service: GUEST SERVICES COORDINATOR - Community Resources: No PT to Evaluate: Yes PT to evaluate and provide a treatmnet plan to increase patient's mobility and strength. Wound Care: No IV Therapy: No RN Safety Evaluation: Yes RN to evaluate and create a plan of care that will produce positive outcomes. Palliative Treatment: No Palliative treatment and evaluate the need for hospice. Home Health Aide - Personal Care: Yes Home Health Aide to assist with any ADL's. Exam Vital Signs Temp Pulse Resp BP Pulse Ox O2 Del Method 97.3 F 105 H 11 L 146/105 H 96 Room Air 11/28/24 08:00 11/28/24 08:36 11/28/24 08:36 11/28/24 08:00 11/28/24 08:36 11/28/24 08:00 Narrative Exam General: Awake. HEENT: Normocephalic, atraumatic, mucous membranes moist. Heart: Regular rate and rhythm, no murmurs. Lungs: Clear to auscultation with no wheezing or crackles. Abdomen: Soft, nondistended, no tenderness, positive bowel sounds. ?No guarding or rebound tenderness. Neurologic: Alert and oriented x3, no gross neurological deficit, and patient able to move all 4 extremities. Extremities: No edema. Skin: No rash or ecchymoses, about 2 cm laceration on upper side of left eyebrow-healed Discharge Plan Plan Patient Disposition: Home w/HOME HEALTH Patient condition on transfer: Stable Care Plan Goals: Recommend with holding lisinopril for now due to acute kidney injury. Follow up with PCP for repeat renal panel in next 2 days. Please complete treatment for close individual colitis with antibiotic vanc omycin 125 mg 4 times daily through December 07 to complete 10 days of treatment. Recommend maintaining adequate hydration, at least 64 ounces of water daily. In case of worsening symptoms, please return to the emergency room. Prescriptions/Referrals Prescriptions/Med Rec: New vancomycin 125 mg Capsule 125 mg PO QID Qty: 33 0RF Continued Stiolto Respimat 2.5-2.5 mcg/actuation mist 2 puff INHALATION DAILY albuterol sulfate [Ventolin HFA] 90 mcg/actuation HFA aerosol inhaler 2 puff INHALATION Q6HR PRN (Reason: Shortness Of Breath) memantine 10 mg tablet 10 mg PO BID simvastatin 10 mg tablet 10 mg PO QPM carvedilol 12.5 mg tablet 12.5 mg PO BID pregabalin [Lyrica] 100 mg capsule 100 mg PO QDAY Qty: 30 0RF pantoprazole [Protonix] 40 mg tablet,delayed release (DR/EC) 40 mg PO QDAY Qty: 30 0RF Discontinued lisinopril 20 mg Tablet 20 mg PO QDAY hydrochlorothiazide 12.5 mg Capsule 12.5 mg PO BIDD Qty: 60 0RF Referrals: Benjie Morales MD [Primary Care Provider] - Patient/Caregiver Discharge Instructions Education Materials: C diff Print Language: Greek Stand Alone Forms: Nery Award Info., Patient Portal Info Letter Discharge Order Discharge Orders: Discharge (Routine); Ordered 11/28/24 Ordered By: Lucero Nguyen Quality Discharge Quality Measures VTE prophylaxis
--- NOTE | 2024-11-30 08:41 | PC.CM ---
Addendum entered by Maribell Araujo RN 11/30/24 17:01: [facility] accepted patient and they will open patient on 12/03. Addendum entered by Maribell Araujo RN 11/30/24 09:57[facility]. Original Note: Patient has [employer] insurance so I sent home health referral to [facility].
== END 2024-11-28 10:09 | disposition home health service (06) | DRG 683 ==
LOC: SERX 18:21 → SERHOLD 11-26 06:30 → S2NX 11-26 06:30
PROVIDERS: Emergency Medicine; Internal Medicine Nephrology; Admitting Provider Student in an Organized Health Care Education/Training Program; Emergency Provider Emergency Medicine; PCP Family Medicine; Visit Provider Internal Medicine
DX: N17.9 Acute kidney failure, unspecified (principal); A04.72 Enterocolitis due to Clostridium difficile, not specified as recurrent; E87.4 Mixed disorder of acid-base balance; F03.93 Unspecified dementia, unspecified severity, with mood disturbance; I24.89 Other forms of acute ischemic heart disease; I10 Essential (primary) hypertension; F31.9 Bipolar disorder, unspecified; M54.9 Dorsalgia, unspecified; G89.29 Other chronic pain; K59.03 Drug induced constipation; T40.2X5A Adverse effect of other opioids, initial encounter; N28.1 Cyst of kidney, acquired; E78.5 Hyperlipidemia, unspecified; E86.0 Dehydration; K59.09 Other constipation; E83.51 Hypocalcemia; J44.9 Chronic obstructive pulmonary disease, unspecified
CPT/HCPCS: 36415; 70450; 71045; 71250; 74176; 76770; 80048; 80053; 80069; 80307; 80320; 81001; 83036; 83605; 83735; 84100; 84132; 84145; 84443; 84484; 85025; 87015; 87040; 87045; 87046; 87077; 87086; 87205; 87329; 87400; 87449; 87493; 87811; 87899; 96361; 96365; 96366; 96372; 97162; 99291; 99292; J0613; J1643; J2405; J3480; J7030; J7070; J7120; A9270; G0480

== ENCOUNTER 2024-12-03 17:56 | Inpatient (IN) | payer OTHER, MEDICAID, MEDICARE, SELFPAY ==
[2024-12-03 18:01] VITALS: BP 73/46; PULSE 92; RESP 19; TEMP 36.4; O2SAT 100
[2024-12-03 18:23] VITALS: PULSE 89; RESP 16; O2SAT 100
[2024-12-03 18:27] VITALS: BMI 26.9
--- NOTE | 2024-12-03 18:44 | PD.EDADULT ---
ED General RME/HPI General Chief complaint: General Adult/Misc Complain Stated complaint: HYPOTENSION Time Seen by Provider: 12/03/24 18:34 Arrival date/time: 12/03/24 17:56 CC: Hypotension HPI patient presents the ER via EMS who reported blood pressure of 50/30, the patient states she has had chronic diarrhea. Patient is a very poor historian when reviewing the medical records to determine the patient was discharged from here on November 28 for C. difficile when she was initially admitted for hypotension. Patient is awake alert and oriented with no other specific complaints. Related Data Home Medications ?Medication ?Instructions ?Recorded ?Confirmed albuterol sulfate 90 mcg/actuation 2 puff inhalation Q6HR PRN 10/01/22 10/01/22 aerosol inhaler (Ventolin HFA) Shortness Of Breath carvedilol 12.5 mg tablet 12.5 mg PO BID 10/01/22 10/01/22 memantine 10 mg tablet 10 mg PO BID 10/01/22 10/01/22 simvastatin 10 mg tablet 10 mg PO QPM 10/01/22 10/01/22 tiotropium 2.5 mcg-olodaterol 2.5 2 puff inhalation DAILY 10/01/22 10/01/22 mcg/actuation mist for inhalation (Stiolto Respimat) Previous Rx's ?Medication ?Instructions ?Recorded pantoprazole 40 mg tablet,delayed 40 mg PO QDAY #30 tabs 12/31/23 release (Protonix) pregabalin 100 mg capsule (Lyrica) 100 mg PO QDAY #30 caps 06/10/24 vancomycin 125 mg capsule 125 mg PO QID #33 caps 11/28/24 Allergies Allergy/AdvReac Type Severity Reaction Status Date / Time No Known Allergies Allergy Verified 11/25/24 13:51 Review of Systems Review of Systems Narrative Review of Systems: GEN: No fever, no chills, no weight loss EYES: No discharge, no visual changes, no pain HEENT: No ear pain, no congestion, no sore throat PULM: No shortness of breath, no cough, no congestion CV: No chest pain, no dyspnea on exertion, no palpitations GI: No nausea, no vomiting, + diarrhea, no pain, no constipation : No frequency, no urgency, no dysuria MUSC/SKEL: No joint pain, no back pain SKIN: No rash PSYCH: No hallucinations, no depression HEME/LYMPH: No easy bleeding or bruising tendencies NEURO: No weakness, no headache ED Exam Narrative Physical exam: [General: Frail but not in any acute distress Head normocephalic HEENT: Mouth pink dry membranes uvula is midline swallow symmetrical. All other subsystems of HEENT are within acceptable limits Neck is supple nontender Chest equal chest rise nontender to palpation Respiratory: Clear to auscultation no wheezes crackles or rubs CV: Rate rhythm is regular no murmurs rubs or clicks Abdomen is soft nontender no masses positive bowel sounds all 4 quadrants Back: No CVA tenderness no spinous process tenderness from cervical spine thoracic and lumbar spine Skin: Intact no petechiae rash induration ulceration or crepitus Extremities: Moving all extremity against resistance cap refill less than 2 seconds neurosensory intact Neuro: Awake alert oriented x3 Glascow coma 15 no focal deficits] Course Course Course Narrative: Patient is worsening BUN and creatinine discussed with Dr. York who was consulted on this patient last week who was admitted for the same reason. She is requested the patient get LR 100 mL an hour x 24 hours. Quality Measures none Orders Category Date Time Status Bedside COVID-19 Antigen Test NOW Care 12/03/24 18:35 Active Bedside Influenza A&B Antigen Test NOW Care 12/03/24 18:37 Completed EKG (ED ONLY) *Do not use* NOW Care 12/03/24 18:35 Completed Consult to Nephrology Stat Cons 12/03/24 20:50 Ordered EKG (ED Only) Stat Exams 12/03/24 18:35 Ordered B-Type Natriuretic Peptide Stat Lab 12/03/24 19:27 Completed CBC Stat Lab 12/03/24 19:27 Completed Clostridium Difficile PCR Stat Lab 12/03/24 Ordered Comprehensive Metabolic Panel Stat Lab 12/03/24 19:27 Completed Creatine Kinase Stat Lab 12/03/24 19:27 Completed Drug Screen,Urine Stat Lab 12/03/24 18:35 Ordered Lipase Stat Lab 12/03/24 19:27 Completed Magnesium Stat Lab 12/03/24 19:27 Completed Partial Thromboplastin Time Stat Lab 12/03/24 19:27 Completed Prothrombin Time with INR Stat Lab 12/03/24 19:27 Completed Urinalysis Stat Lab 12/03/24 18:35 Ordered Ringers Lactated 1000 ml [Lactated Ringers] 1,000 ml Med 12/03/24 20:51 Active IV 100 mls/hr Ringers Lactated 1000 ml [Lactated Ringers] 1,000 ml Med 12/03/24 21:36 Active IV 999 mls/hr Sodium Chloride 0.9% 1000 ml [Ns] 1,000 ml Med 12/03/24 18:36 Discontinued IV 999 mls/hr Vital Signs Vital signs: Vital Signs Temperature 97.6 F 12/03/24 18:01 Pulse Rate 92 12/03/24 18:01 Respiratory Rate 19 12/03/24 18:01 Blood Pressure 73/46 L 12/03/24 18:01 Pulse Oximetry (%) 100 12/03/24 18:01 Oxygen Delivery Method Room Air 12/03/24 18:01 [facility] Patient data External records reviewed:: [facility] previous records and EMS form Clinical information provided by:: patient and EMS Social determinants that could affect healthcare access:: none Patient has the following chronic illnesses:: Hypertension hyperlipidemia recent diagnosis of C. difficile How is presenting disease/condition affected by chronic disease/condition?: exacerbated by Evaluation data The following diagnostics were reviewed and interpreted by me:: lab results and radiology exam(s) Lab and/or radiology exams considered but not ordered:: EKG performed 1932 shows a ventricular rate of 94 CA interval 137 QRS of 86 QTc of 425 the sinus rhythm T wave inversions in V3 CBC shows no leukocytosis and anemia that stable, no thrombocytopenia Coags within acceptable limits CMP shows a sodium 132 potassium of 3.4 chloride of 99 CO2 of 10.2 with an anion gap of 23 BUN of 109 creatinine of 14.3 glucose of 92 calcium 8.0 magnesium 1.8 total bili less than 02 Interpretation Summary: Patient has had a significant worsening in her renal function at this time the patient's case discussed with Dr York agrees patient needs to be admitted put on LR at 100 an hour for the next 24 hours. Patient's case discussed with Dr. Ryan who agrees as resident to except for Dr. Hugo Karimi's for admission for acute renal failure, persistent diarrhea, C. difficile. Medications Medications considered but not ordered:: None Medication administrations:: Medication Administration History Acetaminophen (Acetaminophen 325 Mg Tablet) 650 mg PO Q6H PRN PRN Reason: Fever >100.3 or pain Stop: 01/02/25 21:57 Hydrocodone Bitart/Acetaminophen (Hydrocodone/Apap 5/325 Tablet) 1 tab PO Q4HR PRN PRN Reason: PAIN SCALE 4-10(Mod-Sev Stop: 12/08/24 21:57 Albuterol/Ipratropium (Albuterol/Ipratropium (Duoneb) Rt Brittany 3 Ml Nebu) 3 ml INH Q4HR PRN PRN Reason: SHORTNESS OF BREATH OR WHEEZE Stop: 01/02/25 21:57 Calcium Carbonate (Calcium Carbonate 600 Mg Tablet) 600 mg PO QDAY [facility] Stop: 01/02/25 22:14 Heparin Sodium (Porcine) (Heparin Sod Inj 5000 Unit/Ml Vial) 5,000 unit SC Q12HR ERI Stop: 12/17/24 22:04 Lactated Ringer's (Lactated Ringers) 1,000 mls @ 100 mls/hr IV .Q10H ERI Stop: 01/02/25 20:50 Last Admin: 12/03/24 21:54 Dose: 100 mls/hr Documented By: MELINA Lactated Ringer's (Lactated Ringers) 1,000 mls @ 999 mls/hr IV .Q1H1M ONE Stop: 12/03/24 22:36 Last Admin: 12/03/24 21:51 Dose: 999 mls/hr Documented By: MELINA Ondansetron HCl (Ondansetron Inj 2 Mg/Ml Inj 2 Ml) 4 mg IV Q6H PRN; Protocol PRN Reason: NAUSEA OR VOMITING Stop: 01/02/25 21:57 Pantoprazole Sodium (Pantoprazole 40 Mg Tablet) 40 mg PO QDAY [facility] Stop: 01/03/25 08:59 Pregabalin (Pregabalin 75 Mg Capsule) 100 mg PO DAILY [facility] Stop: 01/03/25 08:59 Vancomycin HCl (Vancomycin 125 Mg Capsule) 125 mg PO QID [facility] Stop: 12/10/24 22:14 Discontinued Medications Sodium Chloride (Ns) 1,000 mls @ 999 mls/hr IV .Q1H1M ONE Stop: 12/03/24 19:36 Last Infusion: 12/03/24 21:46 Dose: Infused Documented By: Admin: 12/03/24 19:04 Dose: 999 mls/hr Documented By: ZULEMA Sodium Bicarbonate (Sodium Bicarb Inj 8.4% 1 Meq/Ml Vial 50 Ml) 50 meq IV X1 ONE Stop: 12/03/24 22:04 None Consultations Consultation(s) initiated? (list below): No Diagnosis Differential Diagnosis ED Complaint MDM: Acute renal failure diarrhea C. difficile Most likely diagnosis given after review of the tests above:: Acute renal failure diarrhea C. difficile Admission Indicated Admission indicated?: indicated Explain why admission is indicated or not indicated:: Requires further medical management Admission Request Was there a request for admission?: No Disposition Plan Disposition Plan: Admit Medical Decision Making Differential Diagnosis Differential Diagnosis: Acute renal failure diarrhea C. difficile Lab Data 12/03/24 19:27 12/03/24 19:27 Labs: Lab Results 12/03/24 Range/Units 19:27 WBC 10.2 D (3.6-11.0) Thou/mm3 RBC 3.08 L (4.00-5.20) Miln/mm3 Hgb 9.6 L (12.0-16.0) g/dL Hct 28.0 L (36.0-46.0) % MCV 91 (80-100) fL MCH 31.2 (25.0-35.0) pg MCHC 34.3 (31.0-37.0) g/dl RDW Std Deviation 43.8 (36.4-46.3) fL Plt Count 334 D (140-440) Thou/mm3 Neut % (Auto) 81 H (37-80) % Lymph % (Auto) 8 L (10-50) % [place] % (Auto) 11 (0-12) % Eos % (Auto) 0 (0-10) % Baso % (Auto) 0 (0-2.5) % Neut # (Auto) 8.2 H (1.8-7.7) Thou/mm3 Lymph # (Auto) 0.8 L (1.0-4.8) Thou/mm3 [place] # (Auto) 1.1 H (0.0-0.8) Thou/mm3 Eos # (Auto) 0.0 (0.0-0.5) Thou/mm3 Baso # (Auto) 0.0 (0.0-0.2) Thou/mm3 Immature Gran # (Auto) 0.07 H (0.00-0.00) Thou/mm3 Absolute Nucleated RBC 0.00 (0.00-0.00) Thou/mm3 Immature Gran % 1 H (0-0) % Nucleated RBC % 0 (0) /100 WBC PT 11.4 (9.0-12.2) Seconds INR 1.0 (0.9-1.3) APTT 28.5 (22.0-36.0) Seconds Sodium 132 L (136-145) mMol/L Potassium 3.4 (3.4-5.1) mMol/L Chloride 99 (98-107) mMol/L Carbon Dioxide 10.2 L* (20.0-31.0) mMol/L Anion Gap 23 H (7-16) BUN 109 H* (9-23) mg/dL Creatinine 14.3 H* D (0.6-1.3) mg/dL Estim Creat Clear Calc 3.8 L (>60) mL/min eGFR 3 L* (60 - ) See Note BUN/Creatinine Ratio 8 L (12-20) Ratio Glucose 92 (74-106) mg/dL Calculated Osmolality 298 H (275-295) Calcium 8.0 L (8.3-10.6) mg/dL Corrected Calcium 8.0 L (8.5-10.1) mg/dL Magnesium 1.8 (1.6-2.6) mg/dL Total Bilirubin < 0.2 L (0.3-1.2) mg/dL AST 12 (0-34) U/L ALT 15 (10-49) U/L Alkaline Phosphatase 78 (46-116) U/L Total Creatine Kinase 110 (34-171) U/L B-Natriuretic Peptide 35 (0-100) pg/mL Total Protein 6.3 (5.7-8.2) gm/dL Albumin 4.0 (3.4-4.8) gm/dL Globulin 2.3 (2.3-3.5) gm/dL Albumin/Globulin Ratio 1.7 (1.2-2.2) Lipase 62 H (12-53) U/L Discharge Plan Plan Patient Disposition: HOME (Self Care) Patient condition on transfer: Stable Problem List Clinical Impression: Acute renal failure, Diarrhea, At risk for Clostridioides difficile infection PA/BIOINFORMATICS TEAM MEMBER Supervising Physician PA/BIOINFORMATICS TEAM MEMBER Supervising Physician: Wilder Hogan ENP
[2024-12-03] MEDS: SODIUM CHLORIDE 0.9% 1000 ML 1,000 ML 999 ML IV (19:04)
[2024-12-03 19:46] LABS: Basophils % (Auto) 0 % (0-2.5); Eosinophils % (Auto) 0 % (0-10); Hemoglobin 9.6 g/dL (12.0-16.0); Immature Granulocytes % (Auto) 1 % (0-0); Immature Granulocytes Auto 0.07 Thou/mm3 (0.00-0.00); Lymphocytes # (Auto) 0.8 Thou/mm3 (1.0-4.8); Lymphocytes % (Auto) 8 % (10-50); Mean Corpuscular HGB Conc 34.3 g/dl (31.0-37.0); Mean Corpuscular Hemoglobin 31.2 pg (25.0-35.0); Mean Corpuscular Volume 91 fL (80-100); Monocytes # (Auto) 1.1 Thou/mm3 (0.0-0.8); Monocytes % (Auto) 11 % (0-12); Neutrophils # (Auto) 8.2 Thou/mm3 (1.8-7.7); Neutrophils % (Auto) 81 % (37-80); Nucleated Red Blood Cell % 0 /100 WBC (0); Platelet Count 334 Thou/mm3 (140-440); RDW Standard Deviation 43.8 fL (36.4-46.3); Red Blood Count 3.08 Miln/mm3 (4.00-5.20); White Blood Count 10.2 Thou/mm3 (3.6-11.0)
[2024-12-03 20:03] LABS: Partial Thromboplastin Time 28.5 Seconds (22.0-36.0); Prothrombin Time 11.4 Seconds (9.0-12.2)
[2024-12-03 20:11] LABS: B-Type Natriuretic Peptide 35 pg/mL (0-100)
[2024-12-03 20:16] LABS: Alanine Aminotransferase 15 U/L (10-49); Albumin/Globulin Ratio 1.7 (1.2-2.2); Alkaline Phosphatase 78 U/L (46-116); Anion Gap 23 (7-16); Aspartate Amino Transferase 12 U/L (0-34); BUN/Creatinine Ratio 8 Ratio (12-20); Bilirubin,Total < 0.2 mg/dL (0.3-1.2); Chloride 99 mMol/L (98-107); Estimated Creatinine Clearance 3.8 mL/min (>60); Globulin 2.3 gm/dL (2.3-3.5); Glucose 92 mg/dL (74-106); Lipase 62 U/L (12-53); Magnesium 1.8 mg/dL (1.6-2.6); Osmolality,Calculated 298 (275-295); Potassium 3.4 mMol/L (3.4-5.1); Sodium 132 mMol/L (136-145); Total Protein 6.3 gm/dL (5.7-8.2); eGFR 3 See Note
[2024-12-03 20:17] LABS: Blood Urea Nitrogen 109 mg/dL (9-23); Creatinine (Component) 14.3 mg/dL (0.6-1.3)
[2024-12-03 20:21] LABS: Carbon Dioxide 10.2 mMol/L (20.0-31.0)
[2024-12-03 21:34] LABS: Creatine Kinase 110 U/L (34-171)
[2024-12-03] MEDS: RINGERS LACTATED 1000 ML 1,000 ML 999 ML IV (21:51)
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
[2024-12-03] MEDS: RINGERS LACTATED 1000 ML 1,000 ML 100 ML IV (21:54)
[2024-12-03 21:58] VITALS: BP 83/44; PULSE 100; RESP 16; O2SAT 98
[2024-12-03 22:38] VITALS: PULSE 97; RESP 14; RESP 98
[2024-12-03 22:39] VITALS: BP 69/44; PULSE 98; RESP 15; O2SAT 98
[2024-12-03] MEDS: SODIUM BICARB INJ 8.4% 1 mEq/ML VIAL 50 ML 50 MEQ IV (23:07)
[2024-12-03 23:17] LABS: Base Excess, Venous -11 (-3-3); O2 Saturation, Venous 47 % (96-97); PCO2, Venous 36 mmHg (36-56); PO2, Venous 30 mmHg (15-58); pH, Venous 7.23 (7.33-7.66)
[2024-12-03] MEDS: CALCIUM CARBONATE 600 MG TABLET PO (23:21)
[2024-12-03] MEDS: VANCOMYCIN 125 MG CAPSULE PO (23:21)
[2024-12-03 23:25] VITALS: BP 82/52; PULSE 106; RESP 16; O2SAT 96
[2024-12-04] VITALS (16 sets, daily range): BP systolic 86–110; BP diastolic 42–63; PULSE 14–115; RESP 15–98; TEMP 36.7–39; O2SAT 96–100
--- NOTE | 2024-12-04 00:25 | PC.NURSE ---
Received phone call from tele-pharmacy regarding the followin. Hepain subQ - pharmacy noted pt's Hgb is 9.6 - per Dr. Barrientos via phone, proceed with current order as pt has no active bleeding at this time. 2. Lyrica 100mg - pharmacy recommends only 75mg daily - Dr. Barrientos via phone states to continue with pt's home dose. Pt is unaware what dose she takes but states her will be bringing her meds in the morning. I asked pharmacy to f/u with this in the morning. Also informed Dr. Barrientos that benites was placed per Dr. Cuellar' order and urine that came out was very purulent. Sample was sent to lab.
[2024-12-04 00:36] LABS: Collection Type, Urine Clean Catch
[2024-12-04] MEDS: cefTRIAXone/D5w 1gm IV premix 50 ML IV (01:23)
[2024-12-04 05:20] LABS: Amphetamine/Methamp Scrn,U Negative (Negative); Barbiturate Screen,Urine Negative (Negative); Benzodiazepines Screen,Urine Negative (Negative); Benzoylecgonine Screen, Ur Negative (Negative); Fentanyl Screen,Urine Negative (Negative); Opiate Screen,Urine Negative (Negative); THC Screen,Urine Negative (Negative)
[2024-12-04 06:36] LABS: Alanine Aminotransferase 12 U/L (10-49); Albumin, Serum 3.9 gm/dL (3.4-4.8); Albumin/Globulin Ratio 1.9 (1.2-2.2); Alkaline Phosphatase 75 U/L (46-116); Anion Gap 20 (7-16); Aspartate Amino Transferase < 10 U/L (0-34); BUN/Creatinine Ratio 9 Ratio (12-20); Bilirubin,Total 0.2 mg/dL (0.3-1.2); Calcium 7.4 mg/dL (8.3-10.6); Calcium (Corrected) 7.5 mg/dL (8.5-10.1); Carbon Dioxide 15.9 mMol/L (20.0-31.0); Cardiac Risk Estimate 5.9 RATIO (3.7-5.6); Chloride 99 mMol/L (98-107); Cholesterol 176 mg/dL (132-200); Estimated Creatinine Clearance 4.3 mL/min (>60); Globulin 2.1 gm/dL (2.3-3.5); Glucose 105 mg/dL (74-106); HDL Cholesterol 30 mg/dL (40-60); LDL Cholesterol,Calculated 84 mg/dL (0-130); Magnesium 1.4 mg/dL (1.6-2.6); Osmolality,Calculated 304 (275-295); Sodium 135 mMol/L (136-145); Triglycerides 309 mg/dL (30-150); eGFR 3 See Note
[2024-12-04 07:03] LABS: Blood Urea Nitrogen 108 mg/dL (9-23); Creatinine (Component) 12.6 mg/dL (0.6-1.3)
[2024-12-04 07:04] LABS: Phosphorous 11.3 mg/dL (2.4-5.1)
--- NOTE | 2024-12-04 07:15 | PC.NURSE ---
Called Dr. Ryan, night resident regarding concern for pt's blood pressure. Reported that it is currently 110 systolic but previously was 70s/40s an there hasn't been any readings for me grater than 90's systolic. Informed resident pt is still reveicing 100ml/hr of LR an has had a total of 2L in boluses plus 1L by EMS with still very little urine output (<150mL as measured by indwelling benites). No new orders received at this time. Above info reported to oncoming ALAN Culver.
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
[2024-12-04 07:27] LABS: Bilirubin,Urine Negative (Negative); Blood,Urine 2+ (Negative); Budding Yeast,Urine Present; Color,Urine Orange (Lt Yel-Yel); Glucose, Urine Negative (Negative); Ketones,Urine Negative (Negative); Leukocyte Esterase,Urine Positive (Negative); Nitrite,Urine Positive (Negative); Protein,Urine 3+ (Neg - Trace); RBC,Urine 103 /hpf (0-3); Specific Gravity,Urine 1.017 (1.001-1.035); Squamous Epithelial Cell,Urine 9 /hpf (0-5); Urobilinogen,Urine Negative mg/dL (0.0-1.0); WBC,Urine 2739 /hpf (0-5)
[2024-12-04 07:30] LABS: Clarity,Urine Cloudy (Clear/Hazy)
[2024-12-04 07:50] LABS: Basophils % (Auto) 0 % (0-2.5); Eosinophils % (Auto) 0 % (0-10); Hematocrit 25.9 % (36.0-46.0); Hemoglobin 8.9 g/dL (12.0-16.0); Immature Granulocytes % (Auto) 1 % (0-0); Immature Granulocytes Auto 0.04 Thou/mm3 (0.00-0.00); Lymphocytes # (Auto) 0.7 Thou/mm3 (1.0-4.8); Lymphocytes % (Auto) 10 % (10-50); Mean Corpuscular HGB Conc 34.4 g/dl (31.0-37.0); Mean Corpuscular Volume 90 fL (80-100); Monocytes # (Auto) 0.7 Thou/mm3 (0.0-0.8); Monocytes % (Auto) 9 % (0-12); Neutrophils # (Auto) 5.5 Thou/mm3 (1.8-7.7); Neutrophils % (Auto) 80 % (37-80); Nucleated Red Blood Cell % 0 /100 WBC (0); Platelet Count 290 Thou/mm3 (140-440); RDW Standard Deviation 43.4 fL (36.4-46.3); Red Blood Count 2.87 Miln/mm3 (4.00-5.20); White Blood Count 6.9 Thou/mm3 (3.6-11.0)
[2024-12-04] MEDS: POTASSIUM CHLORIDE 10% 20 MEQ/15 ML UDC PO (08:12)
[2024-12-04] MEDS: HYDROcodone/APAP 5/325 TABLET 1 TAB PO (08:12)
[2024-12-04] MEDS: RINGERS LACTATED 1000 ML 1,000 ML 125 ML IV ×3 (08:12→18:29)
[2024-12-04] MEDS: PREGABALIN 75 MG CAPSULE PO (08:16)
[2024-12-04] MEDS: SODIUM BICARB INJ 8.4% 1 mEq/ML VIAL 50 ML 50 MEQ IV (08:16)
[2024-12-04] MEDS: Magnesium Sulfate 4 GM Ivpb 4 GM/50 ML BAG IV (08:17)
[2024-12-04] MEDS: HEPARIN SOD INJ 5000 UNIT/ML VIAL SC ×2 (08:17→21:33)
[2024-12-04 08:18] LABS: Creatine Kinase 185 U/L (34-171)
[2024-12-04] MEDS: SEVELAMER CARBONATE 800 MG TABLET PO ×3 (08:33→18:13)
--- NOTE | 2024-12-04 08:34 | PC.NURSE ---
Called pharmacy to bring vancomycin po, not in our er pyxis.
[2024-12-04] MEDS: CALCIUM CARBONATE 600 MG TABLET PO (09:35)
[2024-12-04] MEDS: LACTOBACILLUS RHAMNOSUS 1 CAP PO ×2 (09:36→21:34)
[2024-12-04] MEDS: VANCOMYCIN 125 MG CAPSULE PO ×4 (09:36→22:12)
[2024-12-04 09:41] LABS: Lactate (Lactic Acid) 1.8 mMol/L (0.4-2.0)
--- NOTE | 2024-12-04 10:59 | XR_ITS ---
Examination: CT abdomen and pelvis without contrast. Coronal 3-D reconstructions. Sagittal 2-D reconstructions. Date and time of exam:December 04, 2024 1132 hours Comparison November 25, 2024 INDICATIONS: Onset generalized abdominal pain today CTDI: vol (mGy): 10.9 DLP: (mGycm): 650 Technique: Axial images of the abdomen have been obtained, 3 mm slice thickness Intravenous contrast material has not been administered. Low dose protocols were performed. One or more of the following dose reduction techniques were used; automated exposure control, adjustment of the mA and/or KV according to patient size, use of iterative reconstruction technique. Findings: Small retrocardiac gastric hernia No focal liver or splenic lesions Mildly distended gallbladder No pancreatic mass 34 mm fat-containing right adrenal mass 10 mm fat-containing left adrenal nodule 40 mm mass mid right kidney which on the renal sonogram November 25, 2024 appears to represent a cyst Aorta normal size Air and fluid distended colon, no pericecal inflammatory change No pelvic mass Urinary bladder shows thickening up to 11 mm, urinary Beckham catheter Prominent lumbar levoscoliosis Moderate osteopenia IMPRESSION: Mildly distended gallbladder, recommend hepatobiliary sonography follow-up Bilateral fat-containing adrenal masses Recommend repeat renal sonography to confirm 40 mm right renal cyst Moderate colonic ileus Significant thickening of the urinary bladder wall, cystitis included in the differential If abdominal symptoms persist, recommend repeating this study with intravenous contrast
[2024-12-04 12:02] LABS: Anion Gap 14 (7-16); BUN/Creatinine Ratio 11 Ratio (12-20); Carbon Dioxide 19.4 mMol/L (20.0-31.0); Chloride 100 mMol/L (98-107); Estimated Creatinine Clearance 5.2 mL/min (>60); Glucose 118 mg/dL (74-106); Magnesium 2.4 mg/dL (1.6-2.6); Osmolality,Calculated 301 (275-295); Phosphorous 7.1 mg/dL (2.4-5.1); Potassium 3.1 mMol/L (3.4-5.1); Sodium 133 mMol/L (136-145); eGFR 4 See Note
[2024-12-04] MEDS: ACETAMINOPHEN 325 MG TABLET 650 MG PO ×2 (12:09→15:35)
[2024-12-04 12:10] LABS: Blood Urea Nitrogen 109 mg/dL (9-23)
[2024-12-04 12:14] LABS: Calcium 6.8 mg/dL (8.3-10.6)
--- NOTE | 2024-12-04 15:10 | ESPR_ITS ---
<Statement entered by Mychal Tdiwell MD - 12/04/24 15:47> Patient was seen and examined at the bedside this morning. Patient is admitted for severe MAYELIN due to dehydration with anion gap metabolic acidosis. Patient had a history of C. difficile recently discharged and was taking p.o. vancomycin. Director Records Management was consulted and she recommended to continue IV fluid resuscitation and hold off dialysis for now. Continue monitoring renal functions and replete electrolytes as necessary. Will continue with ceftriaxone for UTI. Blood pressure medications on hold. Will continue with current management. CT abdominal pelvis was unremarkable. All labs and orders were reviewed. I saw and examined the patient, and I agree with current management stated by Dr Diego MD,PGY1. Plan of care was discussed with the attending physician and resident physician. Disclaimer: Despite multiple revisions, due to the dictation software being used, the document bellow may not be free of grammatical errors including phonetic/typographic errors. However, this does not deter from our commitment to providing health care in the patient's best interest in mind. Dr. Diann MD, PGY 2 Documentation for date of: 12/04/24 Subjective Subjective Interval history: Patient's status post 2 L of fluid, currently receiving IV maintenance and drinking p.o. Currently complaining of diarrhea. Of note she is finishing her course of oral vancomycin for recent diagnosis of C. difficile. Appears very confused only able to answer and date. Night team reached out to transition social worker to help with social situation and patient's inability to care for self. Exam Vital Signs Temp Pulse Resp BP Pulse Ox O2 Del Method 102.2 F H 115 H 20 90/49 L 100 Room Air 12/04/24 13:12 12/04/24 11:32 12/04/24 11:32 12/04/24 11:32 12/04/24 07:11 12/04/24 07:11 Narrative Exam Constitutional: In no acute distress, resting comfortably in bed Eyes: no conjunctival injection , symmetrical lids. ENMT: Moist Mucous Membranes CVS: Tachycardic, regular rhythm, S1 and S2 present, no murmurs, rubs or gallops . RESP: CTAB, no increased work of breathing GI: Soft, nondistended, nontender Skin: Warm to touch, Dry. Neuro: Alert and oriented to person and date only Psych: Appropriate mood and affect. Objective Labs 12/04/24 04:33 12/04/24 11:14 Labs: Laboratory Results - last 24 hr 12/03/24 12/03/24 12/04/24 19:27 23:07 00:05 WBC 10.2 D RBC 3.08 L Hgb 9.6 L Hct 28.0 L MCV 91 MCH 31.2 MCHC 34.3 RDW Std Deviation 43.8 Plt Count 334 D Neut % (Auto) 81 H Lymph % (Auto) 8 L [place] % (Auto) 11 Eos % (Auto) 0 Baso % (Auto) 0 Neut # (Auto) 8.2 H Lymph # (Auto) 0.8 L [place] # (Auto) 1.1 H Eos # (Auto) 0.0 Baso # (Auto) 0.0 Immature Gran # (Auto) 0.07 H Absolute Nucleated RBC 0.00 Immature Gran % 1 H Nucleated RBC % 0 PT 11.4 INR 1.0 APTT 28.5 VBG pH 7.23 L VBG pCO2 36 VBG pO2 30 VBG O2 Sat (Nathalie) 47 L VBG Base Excess -11 L Sodium 132 L Potassium 3.4 Chloride 99 Carbon Dioxide 10.2 L* Anion Gap 23 H BUN 109 H* Creatinine 14.3 H* D Estim Creat Clear Calc 3.8 L eGFR 3 L* BUN/Creatinine Ratio 8 L Glucose 92 Calculated Osmolality 298 H Lactic Acid Calcium 8.0 L Corrected Calcium 8.0 L Phosphorus Magnesium 1.8 Total Bilirubin < 0.2 L AST 12 ALT 15 Alkaline Phosphatase 78 Total Creatine Kinase 110 B-Natriuretic Peptide 35 Total Protein 6.3 Albumin 4.0 Globulin 2.3 Albumin/Globulin Ratio 1.7 Triglycerides Cholesterol LDL Cholesterol, Calc HDL Cholesterol Cholesterol/HDL Ratio Lipase 62 H Ur Collection Type Clean Catch Urine Color [place] A Urine Clarity Cloudy A Urine pH 6.0 Ur Specific [place] 1.017 Urine Protein 3+ A Urine Glucose (UA) Negative Urine Ketones Negative Urine Blood 2+ A Urine Nitrite Positive Urine Bilirubin Negative Urine Urobilinogen (Auto) Negative Ur Leukocyte Esterase Positive Urine RBC 103 H Urine WBC 2739 H Ur Squamous Epith Cells 9 H Urine Bacteria None Urine Yeast (Budding) Present A Urine Opiates Screen Negative Urine Fentanyl Screen Negative Ur Barbiturates Screen Negative U Amphetamin/Meth Scrn Negative U Benzodiazepines Scrn Negative U Cocaine Metab Screen Negative U Marijuana (THC) Screen Negative 12/04/24 12/04/24 12/04/24 04:33 09:20 11:14 WBC 6.9 RBC 2.87 L Hgb 8.9 L Hct 25.9 L MCV 90 MCH 31.0 MCHC 34.4 RDW Std Deviation 43.4 Plt Count 290 D Neut % (Auto) 80 Lymph % (Auto) 10 [place] % (Auto) 9 Eos % (Auto) 0 Baso % (Auto) 0 Neut # (Auto) 5.5 Lymph # (Auto) 0.7 L [place] # (Auto) 0.7 Eos # (Auto) 0.0 Baso # (Auto) 0.0 Immature Gran # (Auto) 0.04 H Absolute Nucleated RBC 0.00 Immature Gran % 1 H Nucleated RBC % 0 PT INR APTT VBG pH VBG pCO2 VBG pO2 VBG O2 Sat (Nathalie) VBG Base Excess Sodium 135 L 133 L Potassium 3.0 L 3.1 L Chloride 99 100 Carbon Dioxide 15.9 L 19.4 L Anion Gap 20 H 14 BUN 108 H* 109 H* Creatinine 12.6 H* D Estim Creat Clear Calc 4.3 L 5.2 L eGFR 3 L* 4 L* BUN/Creatinine Ratio 9 L 11 L Glucose 105 118 H Calculated Osmolality 304 H 301 H Lactic Acid 1.8 Calcium 7.4 L 6.8 L* Corrected Calcium 7.5 L Phosphorus 11.3 H 7.1 H Magnesium 1.4 L 2.4 Total Bilirubin 0.2 L AST < 10 ALT 12 Alkaline Phosphatase 75 Total Creatine Kinase 185 H D B-Natriuretic Peptide Total Protein 6.0 Albumin 3.9 Globulin 2.1 L Albumin/Globulin Ratio 1.9 Triglycerides 309 H Cholesterol 176 LDL Cholesterol, Calc 84 HDL Cholesterol 30 L Cholesterol/HDL Ratio 5.9 H Lipase Ur Collection Type Urine Color Urine Clarity Urine pH Ur Specific [place] Urine Protein Urine Glucose (UA) Urine Ketones Urine Blood Urine Nitrite Urine Bilirubin Urine Urobilinogen (Auto) Ur Leukocyte Esterase Urine RBC Urine WBC Ur Squamous Epith Cells Urine Bacteria Urine Yeast (Budding) Urine Opiates Screen Urine Fentanyl Screen Ur Barbiturates Screen U Amphetamin/Meth Scrn U Benzodiazepines Scrn U Cocaine Metab Screen U Marijuana (THC) Screen ABG Interpretation ABG results: 12/03/24 23:07 VBG pH 7.23 L VBG pCO2 36 VBG pO2 30 VBG Base Excess -11 L Quality Measures Quality Measures VTE prophylaxis Assessment & Plan Assessment Current Active Medications: Generic Name Dose Route Start Last Admin Trade Name Freq PRN Reason Stop Dose Admin Acetaminophen 650 mg 12/03/24 21:58 12/04/24 12:09 Acetaminophen 325 Mg Tablet PO 01/02/25 21:57 650 mg Q6H PRN Administration Fever >100.3 or pain Hydrocodone Bitart/Acetaminophen 1 tab 12/03/24 21:58 12/04/24 08:12 Hydrocodone/Apap 5/325 Tablet PO 12/08/24 21:57 1 tab Q4HR PRN Administration PAIN SCALE 4-10(Mod-Sev Albuterol/Ipratropium 3 ml 12/03/24 21:58 Albuterol/Ipratropium (Duoneb) Rt Brittany 3 Ml Nebu INH 01/02/25 21:57 Q4HR PRN SHORTNESS OF BREATH OR WHEEZE Calcium Carbonate 600 mg 12/03/24 22:15 12/04/24 09:35 Calcium Carbonate 600 Mg Tablet PO 01/02/25 22:14 600 mg QDAY ERI Administration Heparin Sodium (Porcine) 5,000 unit 12/04/24 09:00 12/04/24 08:17 Heparin Sod Inj 5000 Unit/Ml Vial SC 12/18/24 08:59 5,000 unit Q12HR ERI Administration Lactated Ringer's 1,000 mls @ 125 mls/hr 12/04/24 07:37 12/04/24 08:12 Lactated Ringers IV 01/03/25 07:36 125 mls/hr .Q8H ERI Administration Ceftriaxone Sodium/Dextrose 50 mls @ 100 mls/hr 12/04/24 09:00 12/04/24 09:16 Rocephin/D5w 1gm Iv Premix IV 12/11/24 08:59 Not Given QDAY ERI Lactobacillus Rhamnosus 1 cap 12/03/24 23:00 12/04/24 09:36 Lactobacillus Rhamnosus 1 Cap PO 01/02/25 22:59 1 cap BID ERI Administration Ondansetron HCl 4 mg 12/03/24 21:58 Ondansetron Inj 2 Mg/Ml Inj 2 Ml IV 01/02/25 21:57 Q6H PRN NAUSEA OR VOMITING Protocol Pregabalin 75 mg 12/04/24 09:00 12/04/24 08:16 Pregabalin 75 Mg Capsule PO 01/03/25 08:59 75 mg DAILY ERI Administration Sevelamer Carbonate 800 mg 12/04/24 08:00 12/04/24 12:31 Sevelamer Carbonate 800 Mg Tablet PO 01/03/25 07:59 800 mg TIDWM ERI Administration Vancomycin HCl 125 mg 12/03/24 22:15 12/04/24 09:36 Vancomycin 125 Mg Capsule PO 12/10/24 22:14 125 mg QID ERI Administration Plan Patient is a 64-year-old female poor historian with a medical history of bipolar disorder, primary hypertension, dementia, COPD, chronic constipation, hyperlipidemia, chronic pain, 1 episode of previous seizure-like activity who presented to [facility] emergency department on 12/03/2024 with chief complaint of generalized weakness and proctalgia. Patient will be admitted for treatment and management of severe MAYELIN secondary to dehydration and poor oral intake. Generalized weakness MAYELIN Severe dehydration Hypokalemia Anion gap metabolic acidosis Hypocalcemia Diarrhea Secondary to C. difficile infection?resolving Patient presented with hypotension and generalized weakness. Patient previously hospitalized from 11/25 - 11/30 for treatment of severe MAYELIN secondary to diarrhea from C. difficile infection. She was discharged home on vancomycin p.o. On admission BUN 109, CR 14.3, bicarb 10.2, corrected calcium 8 and anion gap 23 Patient's MAYELIN most likely prerenal due to poor oral intake and continued diarrhea, albeit improving. CT abdomen and pelvis from 12/04 shows 40 mm right renal cyst, colonic ileus, thickening of the urinary bladder wall and mildly distended gallbladder. Plan: ? Regular diet ? Strict I's and O's ? Encourage oral intake - Discontinued home medication pantoprazole as this can worsen C. difficile infection. Please also discontinue on discharge. ? Lactate Ringer's at 125 cc/h ? Calcium carbonate 600 Mg p.o. daily ? Scheduled sevelamer 800 mg p.o. 3 times daily ? Vancomycin 125 mg p.o. 4 times daily for C. difficile infection ? director outpatient services referral ? Nephrology, Dr York consulted and closely following the case. Does not recommend dialysis. Patient still with good urine output. UTI Plan: ?Ceftriaxone daily Normocytic anemia On admission Hb 9.6 Plan: -Outpatient follow-up Essential hypertension COPD Hyperlipidemia Home medication simvastatin 10 Mg p.o. (substituting with atorvastatin in hospital) Stiolto Respimat 2 puffs daily Plan: ? Antihypertensives on hold due to hypotension ? DuoNebs Q4 hourly as needed Dementia Chronic constipation Fibromyalgia Home medication pregabalin 100 Mg p.o. daily and memantine 10 Mg p.o. twice daily Plan: ? Held home medication memantine as this may possibly cause acidosis. ? continue pregabalin 100 Mg p.o. daily Health maintenance: Disposition: IVF, Nephro consult Diet: Regular Lines: pIVs GI Prophylaxis: Contraindicated Thrombo Prophylaxis: Heparin 5000U sc BID Code status: FULL CODE Patient was evaluated and discussed with my attending Dr. Katz, Jose Luis Cortez, PGY1 Attending Provider Attestation/Addendum I have examined the patient, reviewed labs and imaging findings, discussed the case with the resident(s), and reviewed entered orders. I agree with the plan of care as outlined in this note, with these additional summaries/recommendations: Patient is a 64-year-old female poor historian with a medical history of bipolar disorder, primary hypertension, dementia, COPD, chronic constipation, hyperlipidemia, chronic pain, 1 episode of previous seizure-like activity who presented to [facility] emergency department on 11/24/2024 with chief complaint of intractable diarrhea plus nausea/vomiting, generalized weakness. In the emergency department patient was found to have severe MAYELIN with metabolic acidosis and thus hospitalist team was consulted for continuation of care. #Acute Kidney Injury # Hyperphosphatemia # Electrolyte abnormalities Most likely secondary to prerenal azotemia in the setting of severe diarrhea and nausea plus vomiting On admission creatinine 11.1 and BUN 137 (baseline creatinine approx. 0.9) Nephrology consulted, recommendations appreciated Order bilateral renal ultrasound Plan: Nephrology consulted and no need for emergent dialysis at this time. Start IV maintenance fluids and repeat renal panel in AM. Avoid nephrotoxic agents and renally dose medications. Monitor urine output closely. #Anion Gap Metabolic Acidosis On Admission AG 23 and bicarb 15.9 Most likely secondary to uremia +/- starvation ketoacidosis Plan: Patient started on IV maintenance fluids with 3 Amps of bicarb. Urinalysis pending. repeat chemistry panel in AM. # C. difficile infection Previously diagnosed on 11/26/2024. Was prescribed oral vancomycin on discharge about hospitalization but suspect patient did not complete treatment course as prescribed. Plan: Restart oral vancomycin. Order CT abdomen rule out toxic megacolon. #Severe dehydration #Generalized weakness w/ fall Secondary to intractable diarrhea causing severe dehydration and weakness CT head wo: Negative for acute hemorrhage, mass effect or midline shift Plan: Start IV fluids and obtain PT consult #Hypocalcemia Mild, likely secondary to poor oral intake, on admission corrected calcium 8.0 Plan: Replace as needed and repeat level in AM. #COPD: Not in acute exacerbation. As needed DuoNebs ordered. #Dementia: Early onset although type unknown. Resume home memantine and donepezil when able. #Primary hypertension: Blood pressure soft on admission and we will hold oral antihypertensives for now reinstitute as tolerated. #Chronic pain: Resume home [place] as needed. #Hyperlipidemia: Resume home statin when tolerating oral diet Dr. Katz
[2024-12-04] MEDS: POTASSIUM CHLORIDE 20 mEq TABCR 40 MEQ PO (15:28)
--- NOTE | 2024-12-04 15:44 | XR_ITS ---
Examination: Retroperitoneal ultrasound, complete Technique: Multiple high resolution grayscale images of the retroperitoneum obtained, including kidneys and bladder. Exam date and time:December 04, 2024 1625 hours INDICATIONS: CT abdomen pelvis December 04, 2024 40 mm mass mid right kidney FINDINGS: Right kidney 11.4 x 4.9 x 6.1 cm cortex 1.7 cm Multiple cysts, the largest in the midpole 40 mm Solid appearing lesion upper pole right kidney 2.7 x 2.0 x 1.7 cm Left kidney 10.5 x 6.0 x 5.0 cm cortex 1.6 cm Moderate renal parenchymal scar formation Contracted urinary bladder IMPRESSION: Recommend elective MRI abdomen kidneys follow-up, pre and postcontrast, to confirm solid mass upper pole right kidney 2.7 x 2.0 x 1.7 cm
[2024-12-04] MEDS: ATORVASTATIN CALCIUM 10 MG TABLET PO (17:20)
[2024-12-04] MEDS: RINGERS LACTATED 500 ML 500 ML 999 ML IV (18:30)
--- NOTE | 2024-12-04 20:10 | PC.CC ---
Pt Yennifer Cox is a 64 yr old female admitted to hospitalist services for weakness, severe acute kidney injury. ASW attempted to meet with pt at bedside to complete initial assessment. Pt noted to be somewhat confused, though able to confirm her home address and reluctantly name her Pro Cox [phone] as surrogate DM. Pt unable to tell ASW if she is able to ambulate or complete her own ADLs. Pt unable to confirm other demographic information. 1036-ASW made contact with pts Pro Cox. ASW introduced self and role in pt care. ASW explained reason for call and limitations of confidentiality. Pts confirmed that pt has advancing dementia which over the last month has been getting worse. Per pts pt has had frequent falls in the home. Per pts they are but pt has alienated him and their daughter Trang Altamirano [phone]. Per pts he lives in a separate house on their property as pt will not allow him to live in their home. Per pts if he does not check on pt daily she will not answer her phone or open the door. Per pts he oftne times has to crawl into the doggie door to get into their home. Per pts , pt used to be independent with her ADLs and with ambulation. Per pts pt has had numerous falls in the home. Per pts he does not feel pt is able to care for herself and he and their daughter are limited on what pt will allow them to do for her. Pts reports he is open for pt to D/c to SNF for rehab, but would hope pt would be able to return home once stable. Pts confirms pts PCP is Dr. Morales and pt is followed by Dr. Umaña. ASW explained that due to concerns for pt refusing family support, having frequent falls and being unable to care for herself, ASW will complete a report with [facility]PS. Pts expressed understanding and is in agreement. 1838-Verbal report completed with Kimberley Olivares with APS. SOC [id number] completed and faxed.
[2024-12-04 21:42] LABS: Anion Gap 12 (7-16); BUN/Creatinine Ratio 12 Ratio (12-20); Blood Urea Nitrogen 86 mg/dL (9-23); Calcium 8.1 mg/dL (8.3-10.6); Carbon Dioxide 20.7 mMol/L (20.0-31.0); Chloride 102 mMol/L (98-107); Creatinine (Component) 7.2 mg/dL (0.6-1.3); Estimated Creatinine Clearance 7.5 mL/min (>60); Glucose 99 mg/dL (74-106); Magnesium 2.3 mg/dL (1.6-2.6); Osmolality,Calculated 296 (275-295); Phosphorous 4.7 mg/dL (2.4-5.1); Potassium 3.3 mMol/L (3.4-5.1); Sodium 135 mMol/L (136-145); eGFR 6 See Note
--- NOTE | 2024-12-04 22:45 | PC.NURSE ---
Med Rec attempted to be completed but pt does not remember the frequency of how often she takes her meds and unsure of some of her meds. Patient said she will text to bring her meds in the AM
--- NOTE | 2024-12-04 23:46 | ESCONSULT_ITS ---
RE: TRUMAN BYRD : 1960 DATE OF CONSULTATION: 12/04/2024 REASON FOR REFERRAL: Acute kidney injury and possible chronic kidney disease. REFERRING PHYSICIAN: Dr. Barrientos. HISTORY OF PRESENT ILLNESS: This is a 64-year-old woman with past medical history significant for hypertension, seizure disorder, bipolar disorder, and history of SVT, status post cardioversion, who presented to emergency room last night with diarrhea and vomiting since she was discharged and was found again with [id number] kidney disease. Upon presentation, she was found with a BUN of 109 and creatinine of 4.3 with CO2 of 10.2. When she was discharged on 11/28/2024, BUN was at 52 and creatinine was 2.5. She maintains a good urine output. Last night when I was consulted, we have decided to start her on plain lactated ringers and after 12 hours of IV fluids, her creatinine went down to 12.6 and a BUN of 108. CO2 went up to 15.9. She said that when she was discharged a few hours later, she started having diarrhea again. She denies any fever. She denies vomiting. PAST MEDICAL HISTORY: History of vomiting and diarrhea in the past with dehydration. ALLERGIES: NO KNOWN DRUG ALLERGIES. CURRENT MEDICATIONS: 1. Acetaminophen 2. Albuterol 3. Calcium carbonate 600 mg p.o. daily 4. Rocephin 1 g p.o. daily 5. Heparin 5000 units subcutaneously q.12 6. [place]. 7. Lactobacillus rhamnosus. 8. Ondansetron 4 mg daily 9. Pregabalin 75 mg daily. On 12/04/2024, C. difficile was positive. ALLERGIES: NO KNOWN DRUG ALLERGIES. PHYSICAL EXAMINATION: General: He is awake, alert, and oriented. Vital Signs: Blood pressure of 91/51, heart rate of 99, respiratory rate of 19. HEENT: Anicteric sclera. Normocephalic. Neck: Supple. No JVD, Chest and Lungs: Symmetrical expansion. Clear breath sounds. Cardiac: Without murmur. Abdomen: Soft. Nontender. Extremities: No edema. LABORATORY DATA: Hemoglobin 8.9,Sodium 135, potassium 3.3, chloride 102, CO2 20.7, BUN 86, creatinine 7.2, calcium 8.1, phosphorus 4.7. Abdominopelvic CT, significant thickening of the urinary bladder wall, possibly cystitis, mildly distended gallbladder, fat containing adrenal masses. ASSESSMENT: 1. Nonoliguric acute kidney injury secondary to dehydration, now improving. 2. Metabolic acidosis secondary to diarrhea and acute kidney injury. 3. Questionable history of C. difficile colitis. 4. Hypotension secondary to diarrhea. 5. History of bipolar disorder. PLAN: At this point, I would like to continue plain LR at 125 mL/h for hydration. We may need to do another C. difficile stool toxin assay and provide appropriate antibiotics. Continue monitoring urinalysis and kidney function, electrolytes on a daily basis. There is no acute need to do dialysis at this point as the patient's kidney function continues to improve with IV fluids. DT: 22:22:32 TT: 22:47:00 Ref: [id number] - TID: [id number] MTDD
[2024-12-05] VITALS (7 sets, daily range): BP systolic 108–118; BP diastolic 54–76; PULSE 17–113; RESP 17–97; TEMP 36.1–36.9; O2SAT 92–98; BMI 26.9
[2024-12-05] MEDS: RINGERS LACTATED 1000 ML 1,000 ML 125 ML IV ×3 (01:00→23:45)
[2024-12-05] MEDS: POTASSIUM CHLORIDE 20 mEq TABCR 40 MEQ PO ×2 (01:48→09:52)
[2024-12-05 02:38] LABS: Chloride,Urine Random 45.9 mMol/L (55.0-125.0); Creatinine,Random Urine 125 mg/dL (30-125); Potassium,Urine Random 11 mMol/L (12-62); Protein Total, Random Urine 92 mg/dL (1-14)
[2024-12-05] MEDS: VANCOMYCIN 125 MG CAPSULE PO ×4 (05:28→20:34)
[2024-12-05 06:25] LABS: Creatinine (Component) 10.3 mg/dL (0.6-1.3)
[2024-12-05 06:42] LABS: Basophils % (Auto) 0 % (0-2.5); Eosinophils % (Auto) 0 % (0-10); Hematocrit 23.6 % (36.0-46.0); Immature Granulocytes % (Auto) 1 % (0-0); Immature Granulocytes Auto 0.05 Thou/mm3 (0.00-0.00); Lymphocytes # (Auto) 0.6 Thou/mm3 (1.0-4.8); Lymphocytes % (Auto) 10 % (10-50); Mean Corpuscular HGB Conc 34.7 g/dl (31.0-37.0); Mean Corpuscular Hemoglobin 31.5 pg (25.0-35.0); Mean Corpuscular Volume 91 fL (80-100); Monocytes # (Auto) 0.5 Thou/mm3 (0.0-0.8); Monocytes % (Auto) 9 % (0-12); Neutrophils # (Auto) 4.7 Thou/mm3 (1.8-7.7); Neutrophils % (Auto) 80 % (37-80); Nucleated Red Blood Cell % 0 /100 WBC (0); Platelet Count 249 Thou/mm3 (140-440); White Blood Count 5.9 Thou/mm3 (3.6-11.0)
[2024-12-05 06:45] LABS: Hemoglobin 8.2 g/dL (12.0-16.0)
[2024-12-05 07:34] LABS: Alanine Aminotransferase 11 U/L (10-49); Albumin, Serum 3.5 gm/dL (3.4-4.8); Albumin/Globulin Ratio 1.8 (1.2-2.2); Alkaline Phosphatase 68 U/L (46-116); Anion Gap 11 (7-16); Aspartate Amino Transferase < 10 U/L (0-34); BUN/Creatinine Ratio 15 Ratio (12-20); Bilirubin,Total 0.2 mg/dL (0.3-1.2); Blood Urea Nitrogen 81 mg/dL (9-23); Calcium 8.1 mg/dL (8.3-10.6); Calcium (Corrected) 8.5 mg/dL (8.5-10.1); Carbon Dioxide 21.3 mMol/L (20.0-31.0); Chloride 105 mMol/L (98-107); Creatinine (Component) 5.3 mg/dL (0.6-1.3); Estimated Creatinine Clearance 10.1 mL/min (>60); Globulin 1.9 gm/dL (2.3-3.5); Glucose 97 mg/dL (74-106); Magnesium 2.1 mg/dL (1.6-2.6); Osmolality,Calculated 298 (275-295); Phosphorous 4.1 mg/dL (2.4-5.1); Potassium 3.1 mMol/L (3.4-5.1); Sodium 137 mMol/L (136-145); Total Protein 5.4 gm/dL (5.7-8.2); eGFR 9 See Note
[2024-12-05] MEDS: cefTRIAXone/D5w 1gm IV premix 50 ML IV (08:07)
[2024-12-05] MEDS: LACTOBACILLUS RHAMNOSUS 1 CAP PO ×2 (08:08→20:34)
[2024-12-05] MEDS: SEVELAMER CARBONATE 800 MG TABLET PO (08:08)
[2024-12-05] MEDS: CALCIUM CARBONATE 600 MG TABLET PO (08:08)
[2024-12-05] MEDS: PREGABALIN 75 MG CAPSULE PO (08:08)
[2024-12-05] MEDS: HEPARIN SOD INJ 5000 UNIT/ML VIAL SC ×2 (08:09→20:34)
--- NOTE | 2024-12-05 11:46 | PC.SS ---
Rounding: Pending [employer]ures, Nephro consult
--- NOTE | 2024-12-05 14:12 | ESPR_ITS ---
<Statement entered by Mychal Tidwell MD - 12/05/24 15:20> Patient was seen and examined at the bedside. Patient is making good amount of output. Nephrology recommended to continue IV fluid resuscitation. Kidney functions are improving with creatinine 5.3. Renal ultrasound showed multiple cysts and solid lesion in right upper pole of kidney which patient is to follow as outpatient. Urine cultures are pending. Urine output was 1.7 L. Will continue with Zosyn 1 g and follow with urine culture results. Hemoglobin remained stable. Vitals were stable. All labs and orders were reviewed. I saw and examined the patient, and I agree with current management stated by Dr Diego MD,PGY1. Plan of care was discussed with the attending physician and resident physician. Disclaimer: Despite multiple revisions, due to the dictation software being used, the document bellow may not be free of grammatical errors including phonetic/typographic errors. However, this does not deter from our commitment to providing health care in the patient's best interest in mind. Dr. Diann MD, PGY 2 Documentation for date of: 12/05/24 Subjective Subjective Interval history: Patient resting comfortably in bed, not endorsing any pain, fevers or chills. Notes she has been tolerating p.o. well. BUN and creatinine continued to downtrend with IV fluids. Electrolytes more stabilized, repleted potassium this morning. Discontinued calcium carbonate 600 Mg p.o. daily and sevelamer 800 mg p.o. 3 times daily Exam Vital Signs Temp Pulse Resp BP Pulse Ox O2 Del Method 97.6 F 17 L 17 118/64 94 L Room Air 12/05/24 12:12/05/24 12:12/05/24 12:12/05/24 12:12/05/24 12:12/05/24 12:00 Narrative Exam Constitutional: In no acute distress, resting comfortably in bed Eyes: no conjunctival injection , symmetrical lids. ENMT: Moist Mucous Membranes CVS: Tachycardic, regular rhythm, S1 and S2 present, no murmurs, rubs or gallops . RESP: CTAB, no increased work of breathing GI: Soft, nondistended, tenderness in the suprapubic region Skin: Warm to touch, Dry. Neuro: Alert and oriented to person and date only Psych: Appropriate mood and affect. Objective Labs 12/05/24 04:20 12/05/24 04:20 Labs: Laboratory Results - last 24 hr 12/04/24 12/04/24 12/05/24 11:14 20:36 01:50 WBC RBC Hgb Hct MCV MCH MCHC RDW Std Deviation Plt Count Neut % (Auto) Lymph % (Auto) [place] % (Auto) Eos % (Auto) Baso % (Auto) Neut # (Auto) Lymph # (Auto) [place] # (Auto) Eos # (Auto) Baso # (Auto) Immature Gran # (Auto) Absolute Nucleated RBC Immature Gran % Nucleated RBC % Sodium 135 L Potassium 3.3 L Chloride 102 Carbon Dioxide 20.7 Anion Gap 12 BUN 86 H Creatinine 10.3 H* D 7.2 H* D Estim Creat Clear Calc 7.5 L eGFR 6 L* BUN/Creatinine Ratio 12 Glucose 99 Calculated Osmolality 296 H Calcium 8.1 L Corrected Calcium Phosphorus 4.7 Magnesium 2.3 Total Bilirubin AST ALT Alkaline Phosphatase Total Protein Albumin Globulin Albumin/Globulin Ratio Ur Random Creatinine 125 U Random Total Protein 92 H Ur Random Sodium 42.0 Ur Random Potassium 11 L Ur Random Chloride 45.9 L 12/05/24 04:20 WBC 5.9 RBC 2.60 L Hgb 8.2 L Hct 23.6 L MCV 91 MCH 31.5 MCHC 34.7 RDW Std Deviation 42.0 Plt Count 249 D Neut % (Auto) 80 Lymph % (Auto) 10 [place] % (Auto) 9 Eos % (Auto) 0 Baso % (Auto) 0 Neut # (Auto) 4.7 Lymph # (Auto) 0.6 L [place] # (Auto) 0.5 Eos # (Auto) 0.0 Baso # (Auto) 0.0 Immature Gran # (Auto) 0.05 H Absolute Nucleated RBC 0.00 Immature Gran % 1 H Nucleated RBC % 0 Sodium 137 Potassium 3.1 L Chloride 105 Carbon Dioxide 21.3 Anion Gap 11 BUN 81 H Creatinine 5.3 H* D Estim Creat Clear Calc 10.1 L eGFR 9 L* BUN/Creatinine Ratio 15 Glucose 97 Calculated Osmolality 298 H Calcium 8.1 L Corrected Calcium 8.5 Phosphorus 4.1 Magnesium 2.1 Total Bilirubin 0.2 L AST < 10 ALT 11 Alkaline Phosphatase 68 Total Protein 5.4 L Albumin 3.5 Globulin 1.9 L Albumin/Globulin Ratio 1.8 Ur Random Creatinine U Random Total Protein Ur Random Sodium Ur Random Potassium Ur Random Chloride ABG Interpretation ABG results: 12/03/24 23:07 VBG pH 7.23 L VBG pCO2 36 VBG pO2 30 VBG Base Excess -11 L Quality Measures Quality Measures VTE prophylaxis Assessment & Plan Assessment Current Active Medications: Generic Name Dose Route Start Last Admin Trade Name Freq PRN Reason Stop Dose Admin Acetaminophen 650 mg 12/03/24 21:58 12/04/24 12:09 Acetaminophen 325 Mg Tablet PO 01/02/25 21:57 650 mg Q6H PRN Administration Fever >100.3 or pain Protocol Hydrocodone Bitart/Acetaminophen 1 tab 12/03/24 21:58 12/04/24 08:12 Hydrocodone/Apap 5/325 Tablet PO 12/08/24 21:57 1 tab Q4HR PRN Administration PAIN SCALE 4-10(Mod-Sev Albuterol/Ipratropium 3 ml 12/03/24 21:58 Albuterol/Ipratropium (Duoneb) Rt Brittany 3 Ml Nebu INH 01/02/25 21:57 Q4HR PRN SHORTNESS OF BREATH OR WHEEZE Heparin Sodium (Porcine) 5,000 unit 12/04/24 09:00 12/05/24 08:09 Heparin Sod Inj 5000 Unit/Ml Vial SC 12/18/24 08:59 5,000 unit Q12HR ERI Administration Lactated Ringer's 1,000 mls @ 125 mls/hr 12/04/24 07:37 12/05/24 10:30 Lactated Ringers IV 01/03/25 07:36 125 mls/hr .Q8H ERI Administration Ceftriaxone Sodium/Dextrose 50 mls @ 100 mls/hr 12/04/24 09:00 12/05/24 08:07 Rocephin/D5w 1gm Iv Premix IV 12/11/24 08:59 100 mls/hr QDAY ERI Administration Lactobacillus Rhamnosus 1 cap 12/03/24 23:00 12/05/24 08:08 Lactobacillus Rhamnosus 1 Cap PO 01/02/25 22:59 1 cap BID ERI Administration Memantine 10 mg 12/05/24 21:00 Memantine Hcl 5 Mg Tablet PO 01/04/25 20:59 BID ERI Ondansetron HCl 4 mg 12/03/24 21:58 Ondansetron Inj 2 Mg/Ml Inj 2 Ml IV 01/02/25 21:57 Q6H PRN NAUSEA OR VOMITING Protocol Pregabalin 75 mg 12/04/24 09:00 12/05/24 08:08 Pregabalin 75 Mg Capsule PO 01/03/25 08:59 75 mg DAILY ERI Administration Vancomycin HCl 125 mg 12/03/24 22:15 12/05/24 12:32 Vancomycin 125 Mg Capsule PO 12/10/24 22:14 125 mg QID ERI Administration Plan Patient is a 64-year-old female poor historian with a medical history of bipolar disorder, primary hypertension, dementia, COPD, chronic constipation, hyperlipidemia, chronic pain, 1 episode of previous seizure-like activity who presented to [facility] emergency department on 12/03/2024 with chief complaint of generalized weakness and proctalgia. Patient will be admitted for treatment and management of severe MAYELIN secondary to dehydration and poor oral intake. Generalized weakness MAYELIN Severe dehydration Hypokalemia Anion gap metabolic acidosis Hypocalcemia Diarrhea Secondary to C. difficile infection?resolving Patient presented with hypotension and generalized weakness. Patient previously hospitalized from 11/25 - 11/30 for treatment of severe MAYELIN secondary to diarrhea from C. difficile infection. She was discharged home on vancomycin p.o. On admission BUN 109, CR 14.3, bicarb 10.2, corrected calcium 8 and anion gap 23 Patient's MAYELIN most likely prerenal due to poor oral intake and continued diarrhea, albeit improving. CT abdomen and pelvis from 12/04 shows 40 mm right renal cyst, colonic ileus, thickening of the urinary bladder wall and mildly distended gallbladder. Kidney ultrasound on 12/04 recommending elective MRI abdomen kidneys follow-up, pre and postcontrast, to confirm solid mass upper pole right kidney 2.7 x 2.0 x 1.7 cm?this can be done as outpatient Plan: ? Regular diet ? Strict I's and O's ? Encourage oral intake - Discontinued home medication pantoprazole as this can worsen C. difficile infection. Please also discontinue on discharge. ? Lactate Ringer's at 125 cc/h ? Vancomycin 125 mg p.o. 4 times daily for C. difficile infection ? health services manager referral ? Nephrology, Dr York consulted and closely following the case. Does not recommend dialysis. Patient still with good urine output. ? Outpatient MRI of the kidney UTI Plan: ?Ceftriaxone daily Normocytic anemia On admission Hb 9.6 Plan: -Outpatient follow-up Essential hypertension COPD Hyperlipidemia Home medication simvastatin 10 Mg p.o. (substituting with atorvastatin in hospital) Stiolto Respimat 2 puffs daily Plan: ? Antihypertensives on hold due to hypotension ? DuoNebs Q4 hourly as needed Dementia Chronic constipation Fibromyalgia Home medication pregabalin 100 Mg p.o. daily and memantine 10 Mg p.o. twice daily Plan: ? Held home medication memantine as this may possibly cause acidosis. ? continue pregabalin 100 Mg p.o. daily Health maintenance: Disposition: IVF, Nephro consult Diet: Regular Lines: pIVs GI Prophylaxis: Contraindicated Thrombo Prophylaxis: Heparin 5000U sc BID Code status: FULL CODE Patient was evaluated and discussed with my attending Dr. Dc, Jose Luis Cortez, PGY1 Attending Provider Attestation/Addendum I attest that I was physically present for the evaluation, physical examination, lab and imaging review of the patient with the residents. I discussed the case with the residents and agree with the findings and plans of care as documented above. At bedside today, appears comfortable. Continues to be on Ringer's lactate at 125 cc/h. Patient encouraged to have increased oral intake at bedside. Kidney function noted to be improving compared to yesterday. Nephrology on board, recommended to hold off on dialysis for now as patient is having good urinary output, appreciate recommendations. Continues to be on oral vancomycin for C. difficile. Mentation is improving with improvement in BUN. Patient also noted to have UTI, continues to be on IV ceftriaxone. Potassium this morning was 3.1, repleted accordingly. Patient's phosphorus level has come down to normal levels, we will discontinue the sevelamer. Noted to have 34 mm fat-containing right adrenal mass, 10 mm fat-containing left adrenal nodule, 40 mm mass right kidney suspicious for renal cyst on CT abdomen/pelvis, patient will need further outpatient workup for these. Pending urine culture and stool culture. Sonya Dc MD
[2024-12-05] MEDS: MEMANTINE HCL 5 MG TABLET 10 MG PO (20:34)
--- NOTE | 2024-12-05 23:50 | PD.NEUROCONS ---
History of Present Illness Data of Consult Requesting Physician: Gene Cuellar MD Primary Care Provider: Benjie Morales MD Consult Narrative History of present illness: Ms. Cox is a 64-year-old female with bipolar disorder, hypertension, dementia, COPD, chronic constipation, hyperlipidemia, chronic pain and an episode of previous seizure-like activity who got admitted to telemetry for management of acute renal failure following diarrhea. She was recently admitted and got discharged after being treated for C. difficile enterocolitis from 11/25 to 11/28/2024. patient has been complaining of generalized weakness and not able to walk. She was seen in the ER on 12/03/2024 for possible seizure-like episode but was released as the workup was negative. As her blood pressure went down to 50/30 when the home health nurse checked, she was rushed to the ER by ambulance. She denies any fever with chills, frequency of urination, vomiting or nausea. She denies any sick contacts or recent medication changes. Workup in the ER: Vitals: BP 73/46 [55], P92, RR 19, T97.6, SpO2 100% on room air. Labs significant for Hb 9.6, HCT 28, NA 132, K3.4, bicarb 10.2, BUN 109, CR 14.3, corrected Ca 8, anion gap 23. patient received 1 L normal saline IV fluid bolus. Patient got admitted to telemetry for management of severe acute renal failure secondary to dehydration and very low oral intake. cc:: cc: Gene Cuellar MD Review of Systems Review of Systems Systems Reviewed: All systems reviewed, normal except as documented Past Medical History Past Medical History NEUROLOGIC: Positive Neurological Disorders, Dementia, Seizures and Migraine; Negative Cerebrovascular Accident CARDIAC: Positive Heart Murmur, Hypercholesterolemia, Hypertension and Hypotension; Negative Cardiac Disorders or Congestive Heart Failure RESPIRATORY: Positive Chronic Obstructive Pulmonary Disease (COPD) and Asthma GASTROINTESTINAL: Positive Gastrointestinal Disorders, Gastrointestinal Bleed, Ulcer, Hiatal Hernia, Hemorrhoids and Gastroesophageal Reflux Disease GENITOURINARY: Negative Genitourinary Disorders or Renal Disease REPRODUCTIVE: Positive Previous Pregnancies MUSCULOSKELETAL: Positive Musculoskeletal Disorders, Arthritis, Scoliosis, Fibromyalgia and Fractures ENDOCRINE: Positive Endocrine Disorders and Diabetes Mellitus Type 2 PSYCHO/SOCIAL: Positive Bipolar Disorder, Depression and Anxiety OTHER HISTORY: Positive Hospitalization, Falls and Chicken Pox Family History FAMILY HISTORY: Positive Family Cardiac Disorders and Family Cancer (Mother with liver cancer) Surgical History SURGICAL: Positive Joint Replacement and Tubal Ligation (1984) Social History SMOKING STATUS: Current some day smoker SUBSTANCE USE: does not use OCCUPATION: Disabled Past Medical History Comments PMH COMMENT: Medication list: - Vancomycin 125mg po QID - Stiolto Respimat 2puff daily ? Albuterol inhaler 2 puff daily ? Memantine 10 Mg p.o. twice daily ? Simvastatin 10 Mg p.o. at bedtime ? Coreg 12.5 Mg p.o. twice daily ? Pregabalin 100 Mg p.o. daily ? Pantoprazole 40 Mg p.o. daily Allergies: NIL Social history: Patient is disabled and lives alone. Her lives in a separate house on the property. Patient has a remote smoking history greater than 25 years ago and currently has quit. At baseline patient can ambulate with assistance but has not done so for the past week due to being too weak. Family History: Nil Meds Home Medications and Allergies Home Medications ?Medication ?Instructions ?Recorded ?Confirmed ?Type albuterol sulfate 90 mcg/actuation 2 puff inhalation Q6HR PRN 10/01/22 12/04/24 History aerosol inhaler (Ventolin HFA) Shortness Of Breath carvedilol 12.5 mg tablet 12.5 mg PO BID 10/01/22 12/04/24 History memantine 10 mg tablet 10 mg PO BID 10/01/22 12/04/24 History simvastatin 10 mg tablet 10 mg PO QPM 10/01/22 12/04/24 History tiotropium 2.5 mcg-olodaterol 2.5 2 puff inhalation DAILY 10/01/22 10/01/22 History mcg/actuation mist for inhalation (Stiolto Respimat) montelukast 10 mg tablet mg 12/04/24 History Allergies Allergy/AdvReac Type Severity Reaction Status Date / Time No Known Allergies Allergy Verified 11/25/24 13:51 Exam - Neurology Vital Signs Temp Pulse Resp BP Pulse Ox O2 Del Method 98.4 F 110 H 18 115/65 95 Room Air 12/05/24 20:00 12/05/24 20:00 12/05/24 20:00 12/05/24 20:00 12/05/24 20:00 12/05/24 20:00 Narrative Exam GENERAL APPEARANCE: Well hydrated, well-nourished in no acute distress. HEENT: Normocephalic, atraumatic, extraocular movements intact. Pupils: Equal reacting to light and accommodation NECK: Supple, no JVD or bruits. CARDIOVASULAR: Heart: S1, S2 heard, regular without S3-S4 or murmur no rubs or gallops. LUNGS/CHEST: Clear to auscultation bilaterally. No rails, rhonchi, or wheezing. Normal inspection. ABDOMEN: Soft, nontender, with normal bowel sounds. No pulsatile masses. No rebound, rigidity, or guarding. Normal inspection and palpation. EXTREMITIES: Normal inspection and palpation. No edema, clubbing or cyanosis. SKIN: Warm and dry without rashes. Normal inspection. MUSCULOSKELETAL: No cervical, thoracic, lumbar or midline bony tenderness. Normal inspection. NEURO: Alert, awake and oriented x3. Cranial nerves: II through XII grossly intact. Speech and language: Normal with no dysarthria or dysphasia. Motor system: Tone and bulk: Normal: Strength: 5 out of 5 in all 4 extremities; No pronator drift noted. Deep tendon reflexes: 2+ bilaterally symmetrical. Plantar reflex: Downgoing bilaterally. Sensory system: Intact to all modalities of sensation bilaterally. Coordination: Intact to [id number] and [id number] test bilaterally. No ataxia, no dysmetria, or dysdiadochokinesia noted. No intention tremors noted. Gait: Not tested. No signs of meningeal irritation noted. PSYCHIATRIC: Normal mood and affect. Results Labs 12/05/24 04:20 12/05/24 04:20 Labs: Short CBC 12/05/24 Range/Units 04:20 WBC 5.9 (3.6-11.0) Thou/mm3 Hgb 8.2 L (12.0-16.0) g/dL Hct 23.6 L (36.0-46.0) % Plt Count 249 D (140-440) Thou/mm3 BMP 12/04/24 12/05/24 11:14 04:20 Sodium 137 Potassium 3.1 L Chloride 105 Carbon Dioxide 21.3 BUN 81 H Creatinine 10.3 H* D 5.3 H* D Glucose 97 Calcium 8.1 L Liver Function 12/05/24 Range/Units 04:20 Total Bilirubin 0.2 L (0.3-1.2) mg/dL AST < 10 (0-34) U/L ALT 11 (10-49) U/L Alkaline Phosphatase 68 (46-116) U/L Albumin 3.5 (3.4-4.8) gm/dL ABG Interpretation ABG results: 12/03/24 23:07 VBG pH 7.23 L VBG pCO2 36 VBG pO2 30 VBG Base Excess -11 L Assessment & Plan Assessment and plan (1) Acute renal failure: Status: Acute Assessment and plan: Improving with IV hydration (2) Clostridium difficile infection: Status: Acute Assessment and plan: On vancomycin and Rocephin (3) Dementia: Status: Chronic Assessment and plan: Stable on memantine, resume (4) Hypertension: Status: Acute Assessment and plan: Continue with the carvedilol (5) Seizure: Status: Chronic Assessment and plan: Recent workup is negative for seizures. Continue with the pregabalin anyway for dual benefits
[2024-12-06] VITALS (9 sets, daily range): BP systolic 112–143; BP diastolic 65–84; PULSE 97–119; RESP 15–98; TEMP 36.3–38.5; O2SAT 94–98; BMI 26.9; BMI 13.0
--- NOTE | 2024-12-06 00:12 | ESPR_ITS ---
RE: TRUMAN BYRD : 1960 DATE OF SERVICE: 12/05/2024 HISTORY OF PRESENT ILLNESS: This patient is a 64-year-old woman with past medical history significant for hypertension, seizure disorder, bipolar disorder, and history of SVT status post cardioversion who presented to the emergency room with diarrhea and vomiting and was found to have an elevated creatinine of 4.3 with BUN of 109 and CO2 of 10.2. The patient was started on aggressive IV diuresis with lactated ringer's solution and his creatinine started to improve from 10.3 during admission to 5.3 today. The patient continues to have diarrhea according to her. CURRENT MEDICATIONS: 1. Acetaminophen. 2. Albuterol. 3. Ipratropium nebulizer 4. Rocephin 1 g daily. 5. Lactobacillus rhamnosus one cup p.o. b.i.d. 6. Magnesium p.r.n. 7. Potassium p.r.n. 8. Vancomycin 125 mg p.o. q.i.d. PHYSICAL EXAMINATION: General: Awake, alert. Vital Signs: Blood pressure of 115/56, heart rate of 110. HEENT: Anicteric sclerae. Normocephalic. Neck: Supple. No JVD. Chest and Lungs: Symmetrical expansion. Clear breath sounds Cardiovascular: Without murmurs. Abdomen: Soft, nontender. Extremities: No edema. LABORATORY DATA: Sodium 137, potassium 3.1, chloride 105, CO2 BUN 81, creatinine 5.3, glucose 97, . ASSESSMENT: 1. Acute kidney injury on chronic kidney disease, currently non-oliguric. 2. Metabolic acidosis secondary to diarrhea. 3. History of Clostridium difficile colitis. 4. Hypotension secondary to diarrhea. 5. History of bipolar disorder. PLAN: The patient is currently on vancomycin 125 mg p.o. q.i.d. as the patient has a positive C. difficile on 11/26/2024. We will continue vancomycin orally. Continue monitoring urine output, kidney function, electrolytes on a daily basis and correct as needed. DT: 22:31:53 TT: 23:00:00 Ref: [id number] - TID: [id number] MTDD
[2024-12-06] MEDS: VANCOMYCIN 125 MG CAPSULE PO ×4 (05:18→20:16)
[2024-12-06 05:57] LABS: Basophils % (Auto) 0 % (0-2.5); Eosinophils % (Auto) 0 % (0-10); Hematocrit 23.3 % (36.0-46.0); Immature Granulocytes % (Auto) 1 % (0-0); Immature Granulocytes Auto 0.05 Thou/mm3 (0.00-0.00); Lymphocytes # (Auto) 0.7 Thou/mm3 (1.0-4.8); Lymphocytes % (Auto) 14 % (10-50); Mean Corpuscular HGB Conc 33.9 g/dl (31.0-37.0); Mean Corpuscular Hemoglobin 32.5 pg (25.0-35.0); Mean Corpuscular Volume 96 fL (80-100); Monocytes # (Auto) 0.4 Thou/mm3 (0.0-0.8); Monocytes % (Auto) 8 % (0-12); Neutrophils # (Auto) 3.7 Thou/mm3 (1.8-7.7); Neutrophils % (Auto) 77 % (37-80); Nucleated Red Blood Cell % 0 /100 WBC (0); Platelet Count 211 Thou/mm3 (140-440); RDW Standard Deviation 44.5 fL (36.4-46.3); Red Blood Count 2.43 Miln/mm3 (4.00-5.20); White Blood Count 4.7 Thou/mm3 (3.6-11.0)
[2024-12-06 06:03] LABS: Hemoglobin 7.9 g/dL (12.0-16.0)
[2024-12-06 06:36] LABS: Alanine Aminotransferase 10 U/L (10-49); Albumin, Serum 3.4 gm/dL (3.4-4.8); Albumin/Globulin Ratio 1.7 (1.2-2.2); Alkaline Phosphatase 68 U/L (46-116); Anion Gap 8 (7-16); Aspartate Amino Transferase 11 U/L (0-34); BUN/Creatinine Ratio 23 Ratio (12-20); Bilirubin,Total 0.2 mg/dL (0.3-1.2); Blood Urea Nitrogen 52 mg/dL (9-23); Calcium (Corrected) 8.5 mg/dL (8.5-10.1); Carbon Dioxide 25.9 mMol/L (20.0-31.0); Chloride 102 mMol/L (98-107); Creatinine (Component) 2.3 mg/dL (0.6-1.3); Estimated Creatinine Clearance 23.3 mL/min (>60); Glucose 108 mg/dL (74-106); Magnesium 1.5 mg/dL (1.6-2.6); Osmolality,Calculated 286 (275-295); Phosphorous 2.3 mg/dL (2.4-5.1); Sodium 136 mMol/L (136-145); Total Protein 5.4 gm/dL (5.7-8.2); eGFR 23 See Note
--- NOTE | 2024-12-06 09:14 | PC.SS ---
Addendum entered by Krista Calderon 12/06/24 13:36: SS follow up note; SS submitted authorization to [employer] for patient to discharge to [facility]. SS updated Adia. Addendum entered by Krista Calderon 12/06/24 12:51: SS contacted patient's Pro he reported he would like to change SNF choices, patient's wants patient to discharge to [facility], since patient will have private room. SS contacted Adia from [facility] and she informed SS they are able to accept patient. SS will submit for auth to [employer] once PT notes are available. Original Note: SS spoke to patient's , Pro in regards to discharge plan. He reported that he would like patient to discharge to SNF. SS submitted SNF inquiry through [employer] platform. would like patient to discharge to [facility]. SS contacted Fanny from [facility] and she is able to accept patient Patient is pending LVL 2 PASSR.
[2024-12-06] MEDS: Magnesium Sulfate 2 GM Ivpb 2 GM/50 ML BAG IV ×2 (09:30→12:48)
[2024-12-06] MEDS: POTASSIUM CHLORIDE 20 mEq TABCR 40 MEQ PO (09:36)
[2024-12-06] MEDS: NAPH,KPH MBDB 1 PACKET (1.5 GM) PO (09:37)
[2024-12-06] MEDS: CALCIUM CARBONATE 600 MG TABLET PO (09:37)
[2024-12-06] MEDS: LACTOBACILLUS RHAMNOSUS 1 CAP PO ×2 (09:37→20:15)
[2024-12-06] MEDS: MEMANTINE HCL 5 MG TABLET 10 MG PO ×2 (09:38→20:15)
[2024-12-06] MEDS: HEPARIN SOD INJ 5000 UNIT/ML VIAL SC ×2 (09:38→20:15)
[2024-12-06] MEDS: cefTRIAXone/D5w 1gm IV premix 50 ML IV (09:39)
[2024-12-06] MEDS: PREGABALIN 75 MG CAPSULE PO (09:39)
[2024-12-06] MEDS: RINGERS LACTATED 1000 ML 1,000 ML 125 ML IV (09:40)
[2024-12-06] MEDS: POTASSIUM CHLORIDE 20 mEq TABCR PO (12:47)
--- NOTE | 2024-12-06 13:50 | ESPR_ITS ---
<Statement entered by Mychal Tidwell MD - 12/06/24 14:10> Patient was seen and examined at the bedside. Patient has been improving every day and her creatinine improved today to 2.3 from 5.3. Urine output has been adequate about 1.7 L. Electrolytes were repleted including KCl, magnesium and phosphorus. Urine cultures are growing GNR therefore will wait on final culture results and continue with Rocephin. PT recommended rehabilitation placement at [facility]. Currently pending on authorization. Patient will complete course of her C. difficile treatment tomorrow. Continue contact precautions. Anticipating discharge in next 24-48 hours. All labs and orders reviewed. I saw and examined the patient, and I agree with current management stated by Dr Diego MD,PGY1. Plan of care was discussed with the attending physician and resident physician. Disclaimer: Despite multiple revisions, due to the dictation software being used, the document bellow may not be free of grammatical errors including phonetic/typographic errors. However, this does not deter from our commitment to providing health care in the patient's best interest in mind. Dr. Diann MD, PGY 2 Documentation for date of: 12/06/24 Subjective Subjective Interval history: Patient resting comfortably in bed. Denies any complaints. No longer having abdominal pain. Has had decreasing bowel movements per chart review. Still little tachycardic. Labs improving. Exam Vital Signs Temp Pulse Resp BP Pulse Ox O2 Del Method 98.9 F 98 18 136/70 H 98 Room Air 12/06/24 12:00 12/06/24 12:00 12/06/24 12:00 12/06/24 12:00 12/06/24 08:00 12/06/24 08:00 Narrative Exam Constitutional: In no acute distress, resting comfortably in bed Eyes: no conjunctival injection , symmetrical lids. ENMT: Moist Mucous Membranes CVS: Tachycardic, regular rhythm, S1 and S2 present, no murmurs, rubs or gallops . RESP: no increased work of breathing Skin: Warm to touch, Dry. Neuro: Alert and oriented Psych: Appropriate mood and affect. Objective Labs 12/06/24 05:20 12/06/24 05:20 Labs: Laboratory Results - last 24 hr 12/06/24 05:20 WBC 4.7 RBC 2.43 L Hgb 7.9 L Hct 23.3 L MCV 96 MCH 32.5 MCHC 33.9 RDW Std Deviation 44.5 Plt Count 211 D Neut % (Auto) 77 Lymph % (Auto) 14 [place] % (Auto) 8 Eos % (Auto) 0 Baso % (Auto) 0 Neut # (Auto) 3.7 Lymph # (Auto) 0.7 L [place] # (Auto) 0.4 Eos # (Auto) 0.0 Baso # (Auto) 0.0 Immature Gran # (Auto) 0.05 H Absolute Nucleated RBC 0.00 Immature Gran % 1 H Nucleated RBC % 0 Sodium 136 Potassium 3.0 L Chloride 102 Carbon Dioxide 25.9 Anion Gap 8 BUN 52 H Creatinine 2.3 H D Estim Creat Clear Calc 23.3 L eGFR 23 L BUN/Creatinine Ratio 23 H Glucose 108 H Calculated Osmolality 286 Calcium 8.0 L Corrected Calcium 8.5 Phosphorus 2.3 L Magnesium 1.5 L Total Bilirubin 0.2 L AST 11 ALT 10 Alkaline Phosphatase 68 Total Protein 5.4 L Albumin 3.4 Globulin 2.0 L Albumin/Globulin Ratio 1.7 ABG Interpretation ABG results: 12/03/24 23:07 VBG pH 7.23 L VBG pCO2 36 VBG pO2 30 VBG Base Excess -11 L Quality Measures Quality Measures VTE prophylaxis Assessment & Plan Assessment Current Active Medications: Generic Name Dose Route Start Last Admin Trade Name Freq PRN Reason Stop Dose Admin Acetaminophen 650 mg 12/03/24 21:58 12/04/24 12:09 Acetaminophen 325 Mg Tablet PO 01/02/25 21:57 650 mg Q6H PRN Administration Fever >100.3 or pain Protocol Hydrocodone Bitart/Acetaminophen 1 tab 12/03/24 21:58 12/04/24 08:12 Hydrocodone/Apap 5/325 Tablet PO 12/08/24 21:57 1 tab Q4HR PRN Administration PAIN SCALE 4-10(Mod-Sev Albuterol/Ipratropium 3 ml 12/03/24 21:58 Albuterol/Ipratropium (Duoneb) Rt Brittany 3 Ml Nebu INH 01/02/25 21:57 Q4HR PRN SHORTNESS OF BREATH OR WHEEZE Heparin Sodium (Porcine) 5,000 unit 12/04/24 09:00 12/06/24 09:38 Heparin Sod Inj 5000 Unit/Ml Vial SC 12/18/24 08:59 5,000 unit Q12HR ERI Administration Lactated Ringer's 1,000 mls @ 125 mls/hr 12/04/24 07:37 12/06/24 09:40 Lactated Ringers IV 01/03/25 07:36 125 mls/hr .Q8H ERI Administration Ceftriaxone Sodium/Dextrose 50 mls @ 100 mls/hr 12/04/24 09:00 12/06/24 09:39 Rocephin/D5w 1gm Iv Premix IV 12/11/24 08:59 100 mls/hr QDAY ERI Administration Lactobacillus Rhamnosus 1 cap 12/03/24 23:00 12/06/24 09:37 Lactobacillus Rhamnosus 1 Cap PO 01/02/25 22:59 1 cap BID ERI Administration Memantine 10 mg 12/05/24 21:00 12/06/24 09:38 Memantine Hcl 5 Mg Tablet PO 01/04/25 20:59 10 mg BID ERI Administration Ondansetron HCl 4 mg 12/03/24 21:58 Ondansetron Inj 2 Mg/Ml Inj 2 Ml IV 01/02/25 21:57 Q6H PRN NAUSEA OR VOMITING Protocol Pregabalin 75 mg 12/04/24 09:00 12/06/24 09:39 Pregabalin 75 Mg Capsule PO 01/03/25 08:59 75 mg DAILY ERI Administration Vancomycin HCl 125 mg 12/03/24 22:15 12/06/24 12:48 Vancomycin 125 Mg Capsule PO 12/10/24 22:14 125 mg QID ERI Administration Plan Patient is a 64-year-old female poor historian with a medical history of bipolar disorder, primary hypertension, dementia, COPD, chronic constipation, hyperlipidemia, chronic pain, 1 episode of previous seizure-like activity who presented to [facility] emergency department on 12/03/2024 with chief complaint of generalized weakness and proctalgia. Patient will be admitted for treatment and management of severe MAYELIN secondary to dehydration and poor oral intake. Generalized weakness MAYELIN Severe dehydration Hypokalemia Anion gap metabolic acidosis Hypocalcemia Diarrhea Secondary to C. difficile infection?resolving Patient presented with hypotension and generalized weakness. Patient previously hospitalized from 11/25 - 11/30 for treatment of severe MAYELIN secondary to diarrhea from C. difficile infection. She was discharged home on vancomycin p.o. On admission BUN 109, CR 14.3, bicarb 10.2, corrected calcium 8 and anion gap 23 Patient's MAYELIN most likely prerenal due to poor oral intake and continued diarrhea, albeit improving. CT abdomen and pelvis from 12/04 shows 40 mm right renal cyst, colonic ileus, thickening of the urinary bladder wall and mildly distended gallbladder. Kidney ultrasound on 12/04 recommending elective MRI abdomen kidneys follow-up, pre and postcontrast, to confirm solid mass upper pole right kidney 2.7 x 2.0 x 1.7 cm?this can be done as outpatient Labs improving. Plan: ? Regular diet ? Strict I's and O's ? Encourage oral intake - Discontinued home medication pantoprazole as this can worsen C. difficile infection. Please also discontinue on discharge. ? Lactate Ringer's at 125 cc/h ? Vancomycin 125 mg p.o. 4 times daily for C. difficile infection, last day of antibiotics is 12/07 to complete 10-day course ? patient services coordinator referral:disposition likely SNF ? Nephrology, Dr York consulted and closely following the case. Does not recommend dialysis. Patient still with good urine output. ? Outpatient MRI of the kidney UTI Plan: ?Ceftriaxone daily (12/05? Normocytic anemia On admission Hb 9.6, hemoglobin today at 7.9. This is mostly dilutional. Plan: -Will continue to monitor Essential hypertension COPD Hyperlipidemia Home medication simvastatin 10 Mg p.o. (substituting with atorvastatin in hospital) Stiolto Respimat 2 puffs daily Plan: ? Antihypertensives on hold due to hypotension ? DuoNebs Q4 hourly as needed Dementia Chronic constipation Fibromyalgia Home medication pregabalin 100 Mg p.o. daily and memantine 10 Mg p.o. twice daily Plan: ? Held home medication memantine as this may possibly cause acidosis. ? continue pregabalin 100 Mg p.o. daily Health maintenance: Disposition: IVF, Nephro consult Diet: Regular Lines: pIVs GI Prophylaxis: Contraindicated Thrombo Prophylaxis: Heparin 5000U sc BID Code status: FULL CODE Patient was evaluated and discussed with my attending Dr. Dc, Jose Luis Cortez, PGY1 Attending Provider Attestation/Addendum I attest that I was physically present for the evaluation, physical examination, lab and imaging review of the patient with the residents. I discussed the case with the residents and agree with the findings and plans of care as documented above. At bedside today, appears comfortable. Kidney functions continue to improve. Has been having good urinary output. Continues to be on IV hydration. Noted to have electrolyte imbalances which were corrected accordingly. Urine cultures grew GNR, patient continues to be on Rocephin. She will complete her C. difficile treatment tomorrow. PT recommended SNF . Awaiting placement. Sonya Dc MD
[2024-12-06] MEDS: ACETAMINOPHEN 325 MG TABLET 650 MG PO (16:12)
--- NOTE | 2024-12-06 16:57 | ESPR_ITS ---
RE: TRUMAN BYRD : 1960 DATE OF SERVICE: 12/06/2024 HISTORY OF PRESENT ILLNESS: Briefly, she is a 64-year-old woman with past medical history significant for hypertension, seizure disorder, bipolar disorder, and history of SVT status post cardioversion, who presented to emergency room with diarrhea and vomiting secondary to C. diff. colitis and was found to have an elevated creatinine level of 4.3, BUN of 10.9 and CO2 of 10.2. The patient was started on aggressive IV hydration with lactated Ringer's solution and creatinine started to improve from 10.3 to 2.3 today. The patient continues to have on and off diarrhea, but less now. She is also on vancomycin 125 mg p.o. q.6. CURRENT MEDICATIONS: 1. Acetaminophen. 2. Albuterol. 3. Ipratropium nebulizer. 4. Rocephin 1 g daily. 5. Lactobacillus rhamnosus 1 cup p.o. b.i.d. 6. Magnesium p.r.n. 7. Potassium p.r.n. 8. Vancomycin 125 mg p.o. q.i.d. PHYSICAL EXAMINATION: General: She is awake, alert, and oriented. She wants to go home stating that she would go home at her own house. Vital Signs: Blood pressure of 136/70 and temperature of 101.3. HEENT: Anicteric sclerae. Normocephalic. Neck: Supple. No JVD. Chest and Lungs: Symmetrical expansion. Clear breath sounds. Cardiac: Without murmur. Abdomen: Soft and nontender. Extremities: No edema. LABORATORY DATA: Hemoglobin 7.9, WBC 4,600, and platelet count 211,000. Sodium 136, potassium 3, chloride 102, CO2 of 25.9, BUN 52, creatinine 2.3, glucose 108, calcium 8.5, and albumin 3.4. ASSESSMENT: 1. Acute kidney injury and chronic kidney disease, currently nonoliguric, improving. 2. Metabolic acidosis secondary to diarrhea, now improved. 3. History of Clostridium difficile colitis, on oral vancomycin 125 mg q.i.d. 4. Hypertension secondary to diarrhea, now improved. 5. History of bipolar disorder. PLAN: The patient is on vancomycin 125 mg p.o. q.i.d. We will continue oral vancomycin. Continue monitoring urine output, kidney function, and electrolytes on a daily basis and correct deficiency as needed. DT: 16:20:40 TT: 16:55:00 Ref: [id number] - TID: [id number] MTDD
[2024-12-06] MEDS: HYDROcodone/APAP 5/325 TABLET 1 TAB PO (20:15)
--- NOTE | 2024-12-06 23:41 | ESPR_ITS ---
Documentation for date of: 12/06/24 Subjective Subjective Interval history: Ms. Cox seen in telemetry today. No new symptoms or concerns reported. Exam - Neurology Vital Signs Temp Pulse Resp BP Pulse Ox O2 Del Method 97.9 F 104 H 19 135/75 H 97 Room Air 12/06/24 20:00 12/06/24 20:00 12/06/24 20:00 12/06/24 20:00 12/06/24 20:00 12/06/24 20:00 Narrative Exam GENERAL APPEARANCE: Well hydrated, well-nourished in no acute distress. HEENT: Normocephalic, atraumatic, extraocular movements intact. Pupils: Equal reacting to light and accommodation NECK: Supple, no JVD or bruits. CARDIOVASULAR: Heart: S1, S2 heard, regular without S3-S4 or murmur no rubs or gallops. LUNGS/CHEST: Clear to auscultation bilaterally. No rails, rhonchi, or wheezing. Normal inspection. ABDOMEN: Soft, nontender, with normal bowel sounds. No pulsatile masses. No rebound, rigidity, or guarding. Normal inspection and palpation. EXTREMITIES: Normal inspection and palpation. No edema, clubbing or cyanosis. SKIN: Warm and dry without rashes. Normal inspection. MUSCULOSKELETAL: No cervical, thoracic, lumbar or midline bony tenderness. Normal inspection. NEURO: Alert, awake and oriented x3. Cranial nerves: II through XII grossly intact. Speech and language: Normal with no dysarthria or dysphasia. Motor system: Tone and bulk: Normal: Strength: 5 out of 5 in all 4 extremities; No pronator drift noted. Deep tendon reflexes: 2+ bilaterally symmetrical. Plantar reflex: Downgoing bilaterally. Sensory system: Intact to all modalities of sensation bilaterally. Coordination: Intact to [id number]-pjom-ftmxq and jbqx-ymyd-zgov test bilaterally. No ataxia, no dysmetria, or dysdiadochokinesia noted. No intention tremors noted. Gait: Not tested. No signs of meningeal irritation noted. PSYCHIATRIC: Normal mood and affect. Objective Labs 12/07/24 03:15 12/07/24 03:15 Labs: Laboratory Results - last 24 hr 12/06/24 05:20 WBC 4.7 RBC 2.43 L Hgb 7.9 L Hct 23.3 L MCV 96 MCH 32.5 MCHC 33.9 RDW Std Deviation 44.5 Plt Count 211 D Neut % (Auto) 77 Lymph % (Auto) 14 [place] % (Auto) 8 Eos % (Auto) 0 Baso % (Auto) 0 Neut # (Auto) 3.7 Lymph # (Auto) 0.7 L [place] # (Auto) 0.4 Eos # (Auto) 0.0 Baso # (Auto) 0.0 Immature Gran # (Auto) 0.05 H Absolute Nucleated RBC 0.00 Immature Gran % 1 H Nucleated RBC % 0 Sodium 136 Potassium 3.0 L Chloride 102 Carbon Dioxide 25.9 Anion Gap 8 BUN 52 H Creatinine 2.3 H D Estim Creat Clear Calc 23.3 L eGFR 23 L BUN/Creatinine Ratio 23 H Glucose 108 H Calculated Osmolality 286 Calcium 8.0 L Corrected Calcium 8.5 Phosphorus 2.3 L Magnesium 1.5 L Total Bilirubin 0.2 L AST 11 ALT 10 Alkaline Phosphatase 68 Total Protein 5.4 L Albumin 3.4 Globulin 2.0 L Albumin/Globulin Ratio 1.7 ABG Interpretation ABG results: 12/03/24 23:07 VBG pH 7.23 L VBG pCO2 36 VBG pO2 30 VBG Base Excess -11 L Assessment & Plan Assessment and plan (1) Acute renal failure: Status: Acute Assessment and plan: Improving with IV hydration (2) Clostridium difficile infection: Status: Acute Assessment and plan: On vancomycin and Rocephin (3) Dementia: Status: Chronic Assessment and plan: Stable on memantine, resume (4) Hypertension: Status: Acute Assessment and plan: Continue with the carvedilol (5) Seizure: Status: Chronic Assessment and plan: Recent workup is negative for seizures. Continue with the pregabalin anyway for dual benefits
[2024-12-07] VITALS (13 sets, daily range): BP systolic 115–151; BP diastolic 57–87; PULSE 94–134; RESP 17–21; TEMP 36.6–39.4; O2SAT 95–98; BMI 26.9
[2024-12-07] MEDS: RINGERS LACTATED 1000 ML 1,000 ML 125 ML IV ×4 (00:20→21:01)
[2024-12-07] MEDS: ACETAMINOPHEN 325 MG TABLET 650 MG PO ×3 (01:49→16:39)
[2024-12-07] MEDS: HYDROcodone/APAP 5/325 TABLET 1 TAB PO (01:49)
--- NOTE | 2024-12-07 02:56 | EKG_ITS ---
[facility] Test Date: 2024-12-07 Pat Name: TRUMNA BYRD [facility] Gender[facility] Female [employer]: [id number] : 1960 Requested By: Jackie Ryan Order Number: [id number] Reading MD: Jackie Ryan Measurements Intervals [place] Rate: 112 P: 62 VA: 100 QRS: 33 QRSD: 83 T: 44 QT: 327 QTc: 447 Interpretive Statements SINUS TACHYCARDIA WITH SHORT VA INTERVAL NONSPECIFIC ST & T-WAVE ABNORMALITY ABNORMAL RHYTHM ECG Compared to ECG 12/04/2024 19:33:41 Short VA interval now present Sinus rhythm no longer present Possible ischemia no longer present T-wave abnormality still present /store/S0/[id number]/ecg/[id number].pdf
--- NOTE | 2024-12-07 02:56 | XR_ITS ---
Examination: AP chest single view TECHNIQUE: AP portable upright chest single view Exam date and time:: December 07, 2024 0305 hours INDICATIONS: Sepsis today. FINDINGS: Normal heart size Qxdj-lh-eftfiymt elevation right hemidiaphragm. No lobar pneumonia No pulmonary edema Moderate osteopenia IMPRESSION: No lobar pneumonia identified
--- NOTE | 2024-12-07 03:02 | PD.RESEVENT ---
Documentation for date of: 12/07/24 Event Note Event Note: Rapid Response - SEPSIS ALERT Room: 276 Time: 02:50 Reason for Call: Fever 103 F Patient presentation: Patient awake, alert, oriented, reports no complaints, has flat affect as her baseline. Temperature this evening 102.8 and went up to 103 despite receiving 650 mg acetaminophen. Patient also had temps to 101 earlier this afternoon. Physical exam revealed normal breath sounds, extremities warm, no abdominal or suprapubic tenderness. Denies any cough, dysuria, chills. Other vitals included BP 151/87, HR 110, RR 21, O2 98% on room air, blood glucose 123. Events: Sepsis bundle labs ordered. Continue LR at 125 ml/hr which patient has been receiving. Patient has had good urine output. Assessment: Sepsis. Urine culture growing GNR not yet identified and pending sensitivities. Will upgrade antibiotics. New orders: Acetaminophen 1000 mg IV x1, changed ceftriaxone to Zosyn, sepsis labs - CBC, CMP, coags, Mag, Phos, Lactic acid, Procal, CXR, EKG. Blood cultures ordered. Patient was discussed with the attending, Dr. Zapata. Jackie Ryan, PGY-2
[2024-12-07 03:27] LABS: Lactate (Lactic Acid) 2.2 mMol/L (0.4-2.0)
[2024-12-07] MEDS: ACETAMINOPHEN IVPB 1,000 MG/100 ML VIAL 250 MG IV (03:30)
[2024-12-07 03:40] LABS: Basophils % (Auto) 0 % (0-2.5); Eosinophils % (Auto) 0 % (0-10); Hematocrit 25.3 % (36.0-46.0); Immature Granulocytes % (Auto) 1 % (0-0); Immature Granulocytes Auto 0.05 Thou/mm3 (0.00-0.00); Lymphocytes # (Auto) 0.2 Thou/mm3 (1.0-4.8); Lymphocytes % (Auto) 6 % (10-50); Mean Corpuscular HGB Conc 33.2 g/dl (31.0-37.0); Mean Corpuscular Hemoglobin 31.7 pg (25.0-35.0); Mean Corpuscular Volume 96 fL (80-100); Monocytes # (Auto) 0.3 Thou/mm3 (0.0-0.8); Monocytes % (Auto) 7 % (0-12); Neutrophils # (Auto) 3.4 Thou/mm3 (1.8-7.7); Neutrophils % (Auto) 86 % (37-80); Nucleated Red Blood Cell % 0 /100 WBC (0); Platelet Count 199 Thou/mm3 (140-440); RDW Standard Deviation 44.4 fL (36.4-46.3); Red Blood Count 2.65 Miln/mm3 (4.00-5.20); White Blood Count 3.9 Thou/mm3 (3.6-11.0)
[2024-12-07 03:41] LABS: Hemoglobin 8.4 g/dL (12.0-16.0)
[2024-12-07 03:47] LABS: INR 1.1 (0.9-1.3); Partial Thromboplastin Time 33.5 Seconds (22.0-36.0)
[2024-12-07 04:11] LABS: Alanine Aminotransferase 15 U/L (10-49); Albumin, Serum 3.6 gm/dL (3.4-4.8); Albumin/Globulin Ratio 1.6 (1.2-2.2); Alkaline Phosphatase 67 U/L (46-116); Anion Gap 10 (7-16); Aspartate Amino Transferase 21 U/L (0-34); BUN/Creatinine Ratio 16 Ratio (12-20); Bilirubin,Total < 0.2 mg/dL (0.3-1.2); Blood Urea Nitrogen 27 mg/dL (9-23); Calcium 8.3 mg/dL (8.3-10.6); Calcium (Corrected) 8.6 mg/dL (8.5-10.1); Carbon Dioxide 21.1 mMol/L (20.0-31.0); Chloride 106 mMol/L (98-107); Creatinine (Component) 1.7 mg/dL (0.6-1.3); Estimated Creatinine Clearance 31.6 mL/min (>60); Globulin 2.2 gm/dL (2.3-3.5); Glucose 138 mg/dL (74-106); Magnesium 1.9 mg/dL (1.6-2.6); Osmolality,Calculated 280 (275-295); Phosphorous 1.8 mg/dL (2.4-5.1); Potassium 3.2 mMol/L (3.4-5.1); Procalcitonin 0.52 ng/ml (0.0-0.49); Sodium 137 mMol/L (136-145); Total Protein 5.8 gm/dL (5.7-8.2); eGFR 33 See Note
[2024-12-07] MEDS: VANCOMYCIN 125 MG CAPSULE PO ×4 (05:24→20:37)
[2024-12-07] MEDS: PIPER/TAZO INJ 4.5 GM in SODIUM CHLORIDE 0.9% (P) 100 ML IV ×3 (05:38→21:01)
[2024-12-07 06:24] LABS: Reflex Lactate? Y
[2024-12-07 06:52] LABS: Lactic Acid, 3 HR 1.1 mMol/L (0.4-2.0)
[2024-12-07] MEDS: POTASSIUM PHOS 22.5 MMOL in SODIUM CHLORIDE 0.9% 500 ML 500 ML 82.778 MMOL IV (09:33)
[2024-12-07] MEDS: Magnesium Sulfate 2 GM Ivpb 2 GM/50 ML BAG IV (09:33)
[2024-12-07] MEDS: MEMANTINE HCL 5 MG TABLET 10 MG PO ×2 (09:34→20:40)
[2024-12-07] MEDS: LACTOBACILLUS RHAMNOSUS 1 CAP PO ×2 (09:34→20:41)
[2024-12-07] MEDS: PREGABALIN 75 MG CAPSULE PO (09:34)
--- NOTE | 2024-12-07 09:40 | PC.NURSE ---
MD ZAVALA NOTIFIED OF TEMP OF 101.3 ORAL. ORDERED TO GIVE PRN TYLENOL NOW. AND START COOLING MEASURES. NOTIFIED MD OF PT C/O CHILLS, SHAKING AND HR 126.
[2024-12-07] MEDS: HEPARIN SOD INJ 5000 UNIT/ML VIAL SC ×2 (09:50→20:41)
--- NOTE | 2024-12-07 10:16 | XR_ITS ---
Examination: CT abdomen with intravenous contrast CT pelvis with intravenous contrast 2-D coronal reconstructions 2-D sagittal reconstructions Date and time of exam:December 07, 2024 at 1546 hours INDICATIONS: Clinical diagnosis fistula, marked thickening of the urinary bladder wall on CT examination December 04, 2024. CTDI: vol (mGy) 6.65 DLP: (mGycm) 400 Technique: Multiple axial sections of the abdomen and pelvis have been obtained. 64 slice high-resolution scanner used. 3 mm axial sections have been obtained, post intravenous injection 30 cc Isovue-300 Also introduction Gastrografin per rectum prior to the study 2-D sagittal, coronal reconstructions obtained. Low dose protocols were performed. One or more of the following dose reduction techniques were used; automated exposure control, adjustment of the mA and/or KV according to patient size, use of iterative reconstruction technique. Findings: Retrocardiac gastric hernia No focal liver or splenic lesions Contracted gallbladder No splenic mass 14 mm cyst right kidney No hydronephrosis Contrast opacifies distended colon No fistulous communication is noted Urinary bladder is contracted around a Beckham catheter IMPRESSION: Colonic ileus No fistula identified
[2024-12-07] MEDS: POTASSIUM CHLORIDE 20 mEq TABCR PO (11:28)
[2024-12-07] MEDS: ONDANSETRON INJ 2 MG/ML INJ 2 ML 4 MG IV (11:52)
[2024-12-07] MEDS: METOCLOPRAMIDE INJ 5 MG/ML VIAL 2 ML 10 MG IVP (13:48)
--- NOTE | 2024-12-07 14:33 | XR_ITS ---
Examination: Gastrografin enema Fluoroscopy Exam date and time: December 07, 2024 1536 hours INDICATIONS: Clinical diagnosis bowel fistula, abdominal pain this week Technique an findings: Dilute Gastrografin introduced per rectum with 13 spot fluoroscopic films obtained Fluoroscopy 0.3 minutes radiation dose 33.58 milligray Follow-up CT examination to be obtained IMPRESSION: Limited Gastrografin enema
--- NOTE | 2024-12-07 14:57 | PC.SS ---
Rounding note: patient is pending cultures and CT. Authorization was obtained for [facility], open bed Tuesday if patient is stable for d/c.
--- NOTE | 2024-12-07 16:04 | ESPR_ITS ---
<Statement entered by Mychal Tidwell MD - 12/07/24 17:09> Patient was seen and examined at the bedside. Overnight patient had a fever spike of 102.8 and was given Tylenol and sepsis alert was initiated. Antibiotics were escalated to Zosyn and repeat blood cultures were sent. Patient today continued to had fever spikes and tachycardia. Was given another dose of Tylenol. She was also complaining of nausea with vomiting. We gave bolus of LR [address] abdomen pelvis was ordered initially with oral and IV contrast however due to intolerance to oral contrast was switched to barium rectal contrast to rule out fistula. Will follow-up with imaging findings. Patient will be continued on vancomycin, IV fluids and Zosyn. All labs and orders were reviewed. I saw and examined the patient, and I agree with current management stated by MD Kelly,PGY1. Plan of care was discussed with the attending physician and resident physician. Disclaimer: Despite multiple revisions, due to the dictation software being used, the document bellow may not be free of grammatical errors including phonetic/typographic errors. However, this does not deter from our commitment to providing health care in the patient's best interest in mind. Dr. Diann MD, PGY 2 Documentation for date of: 12/07/24 Subjective Subjective Interval history: Patient had a fever of 102.8 last night was given Tylenol and sepsis workup was initiated. Antibiotic changed from ceftriaxone to Zosyn. Patient continued to have fevers and tachycardia during the day. Was given another dose of Tylenol. She then began developing nausea with vomiting. Was given Zofran without relief and then Rocephin with some improvement. Patient was given 1 L bolus. We ordered CT abdomen and pelvis. Results currently pending. Exam Vital Signs Temp Pulse Resp BP Pulse Ox O2 Del Method 101.4 F H 134 H 20 141/57 H 98 Room Air 12/07/24 11:45 12/07/24 11:45 12/07/24 11:45 12/07/24 11:45 12/07/24 11:45 12/07/24 11:45 Narrative Exam Constitutional: Appears uncomfortable Eyes: no conjunctival injection , symmetrical lids. ENMT: Moist Mucous Membranes CVS: Tachycardic, regular rhythm, S1 and S2 present, no murmurs, rubs or gallops . RESP: no increased work of breathing Abdomin: Soft, nondistended, tender in the left upper quadrant, negative CVA tenderness bilaterally Skin: Warm to touch, Dry. Neuro: Alert and oriented Psych: Appropriate mood and affect. Objective Labs 12/08/24 05:14 12/08/24 15:22 Labs: Laboratory Results - last 24 hr 12/07/24 12/07/24 03:15 06:40 WBC 3.9 RBC 2.65 L Hgb 8.4 L Hct 25.3 L MCV 96 MCH 31.7 MCHC 33.2 RDW Std Deviation 44.4 Plt Count 199 Neut % (Auto) 86 H Lymph % (Auto) 6 L [place] % (Auto) 7 Eos % (Auto) 0 Baso % (Auto) 0 Neut # (Auto) 3.4 Lymph # (Auto) 0.2 L [place] # (Auto) 0.3 Eos # (Auto) 0.0 Baso # (Auto) 0.0 Immature Gran # (Auto) 0.05 H Absolute Nucleated RBC 0.00 Immature Gran % 1 H Nucleated RBC % 0 PT 12.0 INR 1.1 APTT 33.5 Sodium 137 Potassium 3.2 L Chloride 106 Carbon Dioxide 21.1 Anion Gap 10 BUN 27 H Creatinine 1.7 H D Estim Creat Clear Calc 31.6 L eGFR 33 L BUN/Creatinine Ratio 16 Glucose 138 H Calculated Osmolality 280 Lactic Acid 2.2 H 1.1 Calcium 8.3 Corrected Calcium 8.6 Phosphorus 1.8 L Magnesium 1.9 Total Bilirubin < 0.2 L AST 21 ALT 15 Alkaline Phosphatase 67 Total Protein 5.8 Albumin 3.6 Globulin 2.2 L Albumin/Globulin Ratio 1.6 Procalcitonin 0.52 H ABG Interpretation ABG results: 12/03/24 23:07 VBG pH 7.23 L VBG pCO2 36 VBG pO2 30 VBG Base Excess -11 L Quality Measures Quality Measures VTE prophylaxis Assessment & Plan Assessment Current Active Medications: Generic Name Dose Route Start Last Admin Trade Name Freq PRN Reason Stop Dose Admin Acetaminophen 650 mg 12/07/24 10:55 Acetaminophen 325 Mg Tablet PO 01/02/25 21:57 Q6H PRN Fever >100.3 or pain 1-3 Protocol Hydrocodone Bitart/Acetaminophen 1 tab 12/03/24 21:58 12/07/24 01:49 Hydrocodone/Apap 5/325 Tablet PO 12/08/24 21:57 1 tab Q4HR PRN Administration PAIN SCALE 4-10(Mod-Sev Albuterol/Ipratropium 3 ml 12/03/24 21:58 Albuterol/Ipratropium (Duoneb) Rt Brittany 3 Ml Nebu INH 01/02/25 21:57 Q4HR PRN SHORTNESS OF BREATH OR WHEEZE Heparin Sodium (Porcine) 5,000 unit 12/07/24 21:00 Heparin Sod Inj 5000 Unit/Ml Vial SC 12/18/24 08:59 Q12HR ERI Lactated Ringer's 1,000 mls @ 125 mls/hr 12/04/24 07:37 12/07/24 11:53 Lactated Ringers IV 01/03/25 07:36 125 mls/hr .Q8H ERI Administration Piperacillin Sod/Tazobactam 100 mls @ 200 mls/hr 12/07/24 05:11 12/07/24 13:48 Sod 4.5 gm/ Sodium Chloride IV 12/14/24 05:10 200 mls/hr Q8HR ERI Administration Lactobacillus Rhamnosus 1 cap 12/03/24 23:00 12/07/24 09:34 Lactobacillus Rhamnosus 1 Cap PO 01/02/25 22:59 1 cap BID ERI Administration Memantine 10 mg 12/05/24 21:00 12/07/24 09:34 Memantine Hcl 5 Mg Tablet PO 01/04/25 20:59 10 mg BID ERI Administration Ondansetron HCl 4 mg 12/03/24 21:58 12/07/24 11:52 Ondansetron Inj 2 Mg/Ml Inj 2 Ml IV 01/02/25 21:57 4 mg Q6H PRN Administration NAUSEA OR VOMITING Protocol Pregabalin 75 mg 12/04/24 09:00 12/07/24 09:34 Pregabalin 75 Mg Capsule PO 01/03/25 08:59 75 mg DAILY ERI Administration Vancomycin HCl 125 mg 12/03/24 22:15 12/07/24 11:28 Vancomycin 125 Mg Capsule PO 12/10/24 22:14 125 mg QID ERI Administration Plan Patient is a 64-year-old female poor historian with a medical history of bipolar disorder, primary hypertension, dementia, COPD, chronic constipation, hyperlipidemia, chronic pain, 1 episode of previous seizure-like activity who presented to [facility] emergency department on 12/03/2024 with chief complaint of generalized weakness and proctalgia. Patient will be admitted for treatment and management of severe MAYELIN secondary to dehydration and poor oral intake. Sepsis Ddx: UTI, C diff, abscess, fistula Patient with fevers and tachycardia throughout the day. Known UTI which we have been treating with ceftriaxone and C. difficile with p.o. Vanco. Source still unclear. Pt is on broad spectrum antibiotics and fever/tacycardia not improving Denies any pain. Continued to have multiple bouts of diarrhea daily. Plan: ? CT abdomen pelvis pending ?On Zosyn (started on 11/27? Generalized weakness MAYELIN-improving Severe dehydration Hypokalemia Anion gap metabolic acidosis Hypocalcemia Diarrhea Secondary to C. difficile infection Patient presented with hypotension and generalized weakness. Patient previously hospitalized from 11/25 - 11/30 for treatment of severe MAYELIN secondary to diarrhea from C. difficile infection. She was discharged home on vancomycin p.o. On admission BUN 109, CR 14.3, bicarb 10.2, corrected calcium 8 and anion gap 23 Patient's MAYELIN most likely prerenal due to poor oral intake and continued diarrhea, albeit improving. CT abdomen and pelvis from 12/04 shows 40 mm right renal cyst, colonic ileus, thickening of the urinary bladder wall and mildly distended gallbladder. Kidney ultrasound on 12/04 recommending elective MRI abdomen kidneys follow-up, pre and postcontrast, to confirm solid mass upper pole right kidney 2.7 x 2.0 x 1.7 cm?this can be done as outpatient Labs improving. Plan: ? Regular diet ? Strict I's and O's ? Encourage oral intake - Discontinued home medication pantoprazole as this can worsen C. difficile infection. Please also discontinue on discharge. ? Lactate Ringer's at 125 cc/h ? Vancomycin 125 mg p.o. 4 times daily for C. difficile infection, last day of antibiotics is 12/07 to complete 10-day course ? relocation services specialist referral:disposition likely SNF ? Nephrology, Dr York consulted and closely following the case. Does not recommend dialysis. Patient still with good urine output. ? Outpatient MRI of the kidney Normocytic anemia On admission Hb 9.6, hemoglobin today at 7.9. This is mostly dilutional. Plan: -Will continue to monitor Essential hypertension COPD Hyperlipidemia Home medication simvastatin 10 Mg p.o. (substituting with atorvastatin in hospital) Stiolto Respimat 2 puffs daily Plan: ? Antihypertensives on hold due to hypotension ? DuoNebs Q4 hourly as needed Dementia Chronic constipation Fibromyalgia Home medication pregabalin 100 Mg p.o. daily and memantine 10 Mg p.o. twice daily Plan: ? Held home medication memantine as this may possibly cause acidosis. ? continue pregabalin 100 Mg p.o. daily Health maintenance: Disposition: IVF, Nephro consult Diet: Regular Lines: pIVs GI Prophylaxis: Contraindicated Thrombo Prophylaxis: Heparin 5000U sc BID Code status: FULL CODE Patient was evaluated and discussed with my attending , Jose Luis Cortez, PGY1 Attending Provider Attestation/Addendum I have examined the patient, reviewed labs and imaging findings, discussed the case with the resident(s), and reviewed entered orders. I agree with the plan of care as outlined in this note, with these additional summaries/recommendations: Patient has been spiking fevers all day, unclear etiology. Initial concern for worsening of C. difficile colitis or possible colovesical fistula, so decision was made to obtain CT of abdomen with rectal contrast which returned negative for signs of fulminant colitis or fistula. Because of persistent fevers despite 10 days of p.o. vancomycin, will escalate to oral Dificid and place consult for infectious disease. Cody Cabrera MD
--- NOTE | 2024-12-07 17:24 | XR_ITS ---
Examination: AP chest single view TECHNIQUE: AP portable upright chest single view Standing time: December 07, 2024 1743 hours INDICATIONS: Onset coughing today FINDINGS: Normal heart size Accentuation of bronchovascular markings. No lobar pneumonia or pulmonary edema IMPRESSION: Bronchitis pattern.
[2024-12-07 18:24] LABS: Collection Type, Urine Catheter; WBC,Urine 0 /hpf (0-5)
[2024-12-07 18:54] LABS: Bacteria,Urine Rare; Bilirubin,Urine Negative (Negative); Blood,Urine 1+ (Negative); Clarity,Urine Turbid (Clear/Hazy); Color,Urine Lt-Yellow (Lt Yel-Yel); Glucose, Urine Negative (Negative); Ketones,Urine Negative (Negative); Leukocyte Esterase,Urine Negative (Negative); Nitrite,Urine Negative (Negative); Protein,Urine 1+ (Neg - Trace); RBC,Urine 20 /hpf (0-3); Specific Gravity,Urine 1.033 (1.001-1.035); Squamous Epithelial Cell,Urine < 1 /hpf (0-5); Urobilinogen,Urine Negative mg/dL (0.0-1.0)
[2024-12-07 19:18] LABS: COVID-19 Antigen (In-House) Negative (Negative)
[2024-12-07 19:22] LABS: Influenza A Ag Negative; Influenza B Ag Negative
[2024-12-07] MEDS: FIDAXOMICIN 200 MG TABLET (NON-FORMULARY) PO (20:40)
--- NOTE | 2024-12-07 23:51 | PD.NEUROPROG ---
Documentation for date of: 12/07/24 Subjective Subjective Interval history: Ms. Cox seen in telemetry today. No new symptoms or concerns reported. Exam - Neurology Vital Signs Temp Pulse Resp BP Pulse Ox O2 Del Method 98.1 F 115 H 20 115/77 98 Room Air 12/07/24 20:00 12/07/24 20:00 12/07/24 20:00 12/07/24 20:00 12/07/24 20:00 12/07/24 20:00 Narrative Exam GENERAL APPEARANCE: Well hydrated, well-nourished in no acute distress. HEENT: Normocephalic, atraumatic, extraocular movements intact. Pupils: Equal reacting to light and accommodation NECK: Supple, no JVD or bruits. CARDIOVASULAR: Heart: S1, S2 heard, regular without S3-S4 or murmur no rubs or gallops. LUNGS/CHEST: Clear to auscultation bilaterally. No rails, rhonchi, or wheezing. Normal inspection. ABDOMEN: Soft, nontender, with normal bowel sounds. No pulsatile masses. No rebound, rigidity, or guarding. Normal inspection and palpation. EXTREMITIES: Normal inspection and palpation. No edema, clubbing or cyanosis. SKIN: Warm and dry without rashes. Normal inspection. MUSCULOSKELETAL: No cervical, thoracic, lumbar or midline bony tenderness. Normal inspection. NEURO: Alert, awake and oriented x3. Cranial nerves: II through XII grossly intact. Speech and language: Normal with no dysarthria or dysphasia. Motor system: Tone and bulk: Normal: Strength: 5 out of 5 in all 4 extremities; No pronator drift noted. Deep tendon reflexes: 2+ bilaterally symmetrical. Plantar reflex: Downgoing bilaterally. Sensory system: Intact to all modalities of sensation bilaterally. Coordination: Intact to [id number] and [id number] test bilaterally. No ataxia, no dysmetria, or dysdiadochokinesia noted. No intention tremors noted. Gait: Not tested. No signs of meningeal irritation noted. PSYCHIATRIC: Normal mood and affect. Objective Labs 12/08/24 05:14 12/08/24 05:14 Labs: Laboratory Results - last 24 hr 12/07/24 12/07/24 12/07/24 03:15 06:40 17:55 WBC 3.9 RBC 2.65 L Hgb 8.4 L Hct 25.3 L MCV 96 MCH 31.7 MCHC 33.2 RDW Std Deviation 44.4 Plt Count 199 Neut % (Auto) 86 H Lymph % (Auto) 6 L [place] % (Auto) 7 Eos % (Auto) 0 Baso % (Auto) 0 Neut # (Auto) 3.4 Lymph # (Auto) 0.2 L [place] # (Auto) 0.3 Eos # (Auto) 0.0 Baso # (Auto) 0.0 Immature Gran # (Auto) 0.05 H Absolute Nucleated RBC 0.00 Immature Gran % 1 H Nucleated RBC % 0 PT 12.0 INR 1.1 APTT 33.5 Sodium 137 Potassium 3.2 L Chloride 106 Carbon Dioxide 21.1 Anion Gap 10 BUN 27 H Creatinine 1.7 H D Estim Creat Clear Calc 31.6 L eGFR 33 L BUN/Creatinine Ratio 16 Glucose 138 H Calculated Osmolality 280 Lactic Acid 2.2 H 1.1 Calcium 8.3 Corrected Calcium 8.6 Phosphorus 1.8 L Magnesium 1.9 Total Bilirubin < 0.2 L AST 21 ALT 15 Alkaline Phosphatase 67 Total Protein 5.8 Albumin 3.6 Globulin 2.2 L Albumin/Globulin Ratio 1.6 Procalcitonin 0.52 H Ur Collection Type Catheter Urine Color Lt-Yellow Urine Clarity Turbid A Urine pH 6.0 Ur Specific [place] 1.033 Urine Protein 1+ A Urine Glucose (UA) Negative Urine Ketones Negative Urine Blood 1+ A Urine Nitrite Negative Urine Bilirubin Negative Urine Urobilinogen (Auto) Negative Ur Leukocyte Esterase Negative Urine RBC 20 H Urine WBC 0 Ur Squamous Epith Cells < 1 Urine Bacteria Rare Influenza A (Rapid) Negative Influenza B (Rapid) Negative SARS-CoV-2 Ag (Rapid) Negative 12/07/24 18:14 WBC RBC Hgb Hct MCV MCH MCHC RDW Std Deviation Plt Count Neut % (Auto) Lymph % (Auto) [place] % (Auto) Eos % (Auto) Baso % (Auto) Neut # (Auto) Lymph # (Auto) [place] # (Auto) Eos # (Auto) Baso # (Auto) Immature Gran # (Auto) Absolute Nucleated RBC Immature Gran % Nucleated RBC % PT INR APTT Sodium Potassium Chloride Carbon Dioxide Anion Gap BUN Creatinine Estim Creat Clear Calc eGFR BUN/Creatinine Ratio Glucose Calculated Osmolality Lactic Acid 2.0 Calcium Corrected Calcium Phosphorus Magnesium Total Bilirubin AST ALT Alkaline Phosphatase Total Protein Albumin Globulin Albumin/Globulin Ratio Procalcitonin Ur Collection Type Urine Color Urine Clarity Urine pH Ur Specific Basile Urine Protein Urine Glucose (UA) Urine Ketones Urine Blood Urine Nitrite Urine Bilirubin Urine Urobilinogen (Auto) Ur Leukocyte Esterase Urine RBC Urine WBC Ur Squamous Epith Cells Urine Bacteria Influenza A (Rapid) Influenza B (Rapid) SARS-CoV-2 Ag (Rapid) ABG Interpretation ABG results: 12/03/24 23:07 VBG pH 7.23 L VBG pCO2 36 VBG pO2 30 VBG Base Excess -11 L Assessment & Plan Assessment and plan (1) Acute renal failure: Status: Acute Assessment and plan: Improving with IV hydration (2) Clostridium difficile infection: Status: Acute Assessment and plan: On vancomycin and Rocephin (3) Dementia: Status: Chronic Assessment and plan: Stable on memantine, resume (4) Hypertension: Status: Acute Assessment and plan: Continue with the carvedilol (5) Seizure: Status: Chronic Assessment and plan: Recent workup is negative for seizures. Continue with the pregabalin anyway for dual benefits
[2024-12-08] VITALS: BP 132/92; PULSE 129; PULSE 130; RESP 22; TEMP 37.8; O2SAT 95
[2024-12-08] MEDS: ACETAMINOPHEN IVPB 1,000 MG/100 ML VIAL 250 MG IV (00:20)
[2024-12-08 04:00] VITALS: BP 125/88; PULSE 89; PULSE 90; RESP 20; TEMP 35.8; O2SAT 96
[2024-12-08] MEDS: PIPER/TAZO INJ 4.5 GM in SODIUM CHLORIDE 0.9% (P) 100 ML IV ×3 (05:30→21:04)
[2024-12-08] MEDS: VANCOMYCIN 125 MG CAPSULE PO ×4 (05:31→21:03)
[2024-12-08] MEDS: RINGERS LACTATED 1000 ML 1,000 ML 125 ML IV ×2 (05:36→15:03)
[2024-12-08 06:00] VITALS: BMI 24.4
[2024-12-08 06:03] LABS: Basophils % (Auto) 0 % (0-2.5); Eosinophils % (Auto) 0 % (0-10); Hematocrit 26.4 % (36.0-46.0); Immature Granulocytes % (Auto) 1 % (0-0); Immature Granulocytes Auto 0.07 Thou/mm3 (0.00-0.00); Lymphocytes # (Auto) 0.9 Thou/mm3 (1.0-4.8); Lymphocytes % (Auto) 17 % (10-50); Mean Corpuscular HGB Conc 31.8 g/dl (31.0-37.0); Mean Corpuscular Hemoglobin 31.2 pg (25.0-35.0); Mean Corpuscular Volume 98 fL (80-100); Monocytes # (Auto) 0.6 Thou/mm3 (0.0-0.8); Monocytes % (Auto) 10 % (0-12); Neutrophils # (Auto) 3.9 Thou/mm3 (1.8-7.7); Neutrophils % (Auto) 72 % (37-80); Nucleated Red Blood Cell % 0 /100 WBC (0); Platelet Count 199 Thou/mm3 (140-440); RDW Standard Deviation 46.6 fL (36.4-46.3); Red Blood Count 2.69 Miln/mm3 (4.00-5.20); White Blood Count 5.4 Thou/mm3 (3.6-11.0)
[2024-12-08 06:05] LABS: Hemoglobin 8.4 g/dL (12.0-16.0)
[2024-12-08 06:35] LABS: Alanine Aminotransferase 19 U/L (10-49); Albumin, Serum 3.7 gm/dL (3.4-4.8); Albumin/Globulin Ratio 1.6 (1.2-2.2); Alkaline Phosphatase 67 U/L (46-116); Anion Gap 10 (7-16); Aspartate Amino Transferase 26 U/L (0-34); BUN/Creatinine Ratio 12 Ratio (12-20); Bilirubin,Total 0.2 mg/dL (0.3-1.2); Blood Urea Nitrogen 22 mg/dL (9-23); Calcium 8.4 mg/dL (8.3-10.6); Calcium (Corrected) 8.6 mg/dL (8.5-10.1); Carbon Dioxide 24.4 mMol/L (20.0-31.0); Chloride 108 mMol/L (98-107); Creatinine (Component) 1.9 mg/dL (0.6-1.3); Estimated Creatinine Clearance 26.4 mL/min (>60); Globulin 2.3 gm/dL (2.3-3.5); Glucose 101 mg/dL (74-106); Osmolality,Calculated 286 (275-295); Phosphorous 5.6 mg/dL (2.4-5.1); Potassium 2.8 mMol/L (3.4-5.1); Sodium 142 mMol/L (136-145); eGFR 29 See Note
[2024-12-08 08:00] VITALS: BP 101/64; PULSE 87; PULSE 90; RESP 18; TEMP 36.1; O2SAT 95
[2024-12-08] MEDS: HEPARIN SOD INJ 5000 UNIT/ML VIAL SC ×2 (08:12→21:04)
[2024-12-08] MEDS: LACTOBACILLUS RHAMNOSUS 1 CAP PO ×2 (08:12→21:04)
[2024-12-08] MEDS: MEMANTINE HCL 5 MG TABLET 10 MG PO ×2 (08:12→21:03)
[2024-12-08] MEDS: PREGABALIN 75 MG CAPSULE PO (08:12)
[2024-12-08] MEDS: FIDAXOMICIN 200 MG TABLET (NON-FORMULARY) PO ×2 (08:12→21:03)
[2024-12-08] MEDS: POTASSIUM CHLORIDE 20 mEq TABCR 40 MEQ PO ×3 (10:02→17:35)
[2024-12-08 12:00] VITALS: BP 126/79; PULSE 110; PULSE 112; RESP 18; TEMP 37.2; O2SAT 95
[2024-12-08] MEDS: ONDANSETRON INJ 2 MG/ML INJ 2 ML 4 MG IV (12:53)
--- NOTE | 2024-12-08 13:53 | ESPR_ITS ---
Documentation for date of: 12/08/24 Subjective Subjective Interval history: Patient was febrile yesterday morning and afternoon with a temp up to 102.8 and remained tachycardic. She continued to have copious amounts of diarrhea, per chart review 6 bowel movements. All watery in consistency. Was given multiple doses of Tylenol and cooling measures were implemented. CT of the abdomen was negative for abscess or acute pathology. Started patient on oral fidaxomicin after failed p.o. vancomycin treatment. Overnight fever resolved. Patient remains mildly tachycardic. Continues to note that she feels unwell . Exam Vital Signs Temp Pulse Resp BP Pulse Ox O2 Del Method 99.0 F 110 H 18 126/79 95 Room Air 12/08/24 12:00 12/08/24 12:00 12/08/24 12:00 12/08/24 12:00 12/08/24 12:12/08/24 12:00 Narrative Exam Constitutional: Appears uncomfortable Eyes: no conjunctival injection , symmetrical lids. ENMT: Moist Mucous Membranes CVS: Regular rate and rhythm, S1 and S2 present, no murmurs, rubs or gallops . RESP: no increased work of breathing Abdomin: Soft, nondistended, nontender throughout Skin: Warm to touch, Dry. Neuro: Alert and oriented Psych: Noncompliant, keeps pushing me away during exam, not wanting to answer questions. Objective Labs 12/13/24 04:49 12/13/24 04:49 Labs: Laboratory Results - last 24 hr 12/07/24 12/07/24 12/08/24 17:55 18:14 05:14 WBC 5.4 RBC 2.69 L Hgb 8.4 L Hct 26.4 L MCV 98 MCH 31.2 MCHC 31.8 RDW Std Deviation 46.6 H Plt Count 199 Neut % (Auto) 72 Lymph % (Auto) 17 [place] % (Auto) 10 Eos % (Auto) 0 Baso % (Auto) 0 Neut # (Auto) 3.9 Lymph # (Auto) 0.9 L [place] # (Auto) 0.6 Eos # (Auto) 0.0 Baso # (Auto) 0.0 Immature Gran # (Auto) 0.07 H Absolute Nucleated RBC 0.00 Immature Gran % 1 H Nucleated RBC % 0 Sodium 142 Potassium 2.8 L Chloride 108 H Carbon Dioxide 24.4 Anion Gap 10 BUN 22 Creatinine 1.9 H Estim Creat Clear Calc 26.4 L eGFR 29 L BUN/Creatinine Ratio 12 Glucose 101 Calculated Osmolality 286 Lactic Acid 2.0 Calcium 8.4 Corrected Calcium 8.6 Phosphorus 5.6 H Magnesium 2.0 Total Bilirubin 0.2 L AST 26 ALT 19 Alkaline Phosphatase 67 Total Protein 6.0 Albumin 3.7 Globulin 2.3 Albumin/Globulin Ratio 1.6 Ur Collection Type Catheter Urine Color Lt-Yellow Urine Clarity Turbid A Urine pH 6.0 Ur Specific [place] 1.033 Urine Protein 1+ A Urine Glucose (UA) Negative Urine Ketones Negative Urine Blood 1+ A Urine Nitrite Negative Urine Bilirubin Negative Urine Urobilinogen (Auto) Negative Ur Leukocyte Esterase Negative Urine RBC 20 H Urine WBC 0 Ur Squamous Epith Cells < 1 Urine Bacteria Rare Influenza A (Rapid) Negative Influenza B (Rapid) Negative SARS-CoV-2 Ag (Rapid) Negative ABG Interpretation ABG results: 12/03/24 23:07 VBG pH 7.23 L VBG pCO2 36 VBG pO2 30 VBG Base Excess -11 L Quality Measures Quality Measures VTE prophylaxis Assessment & Plan Assessment Current Active Medications: Generic Name Dose Route Start Last Admin Trade Name Freq PRN Reason Stop Dose Admin Acetaminophen 650 mg 12/07/24 10:55 12/07/24 16:39 Acetaminophen 325 Mg Tablet PO 01/02/25 21:57 650 mg Q6H PRN Administration Fever >100.3 or pain 1-3 Protocol Hydrocodone Bitart/Acetaminophen 1 tab 12/03/24 21:58 12/07/24 01:49 Hydrocodone/Apap 5/325 Tablet PO 12/08/24 21:57 1 tab Q4HR PRN Administration PAIN SCALE 4-10(Mod-Sev Albuterol/Ipratropium 3 ml 12/03/24 21:58 Albuterol/Ipratropium (Duoneb) Rt Brittany 3 Ml Nebu INH 01/02/25 21:57 Q4HR PRN SHORTNESS OF BREATH OR WHEEZE Fidaxomicin 200 mg 12/07/24 21:00 12/08/24 08:12 Fidaxomicin 200 Mg Tablet (Non-Formulary) PO 12/17/24 09:01 200 mg BID ERI Administration Heparin Sodium (Porcine) 5,000 unit 12/07/24 21:00 12/08/24 08:12 Heparin Sod Inj 5000 Unit/Ml Vial SC 12/18/24 08:59 5,000 unit Q12HR ERI Administration Lactated Ringer's 1,000 mls @ 125 mls/hr 12/04/24 07:37 12/08/24 05:36 Lactated Ringers IV 01/03/25 07:36 125 mls/hr .Q8H ERI Administration Piperacillin Sod/Tazobactam 100 mls @ 200 mls/hr 12/07/24 05:11 12/08/24 05:30 Sod 4.5 gm/ Sodium Chloride IV 12/14/24 05:10 200 mls/hr Q8HR ERI Administration Lactobacillus Rhamnosus 1 cap 12/03/24 23:00 12/08/24 08:12 Lactobacillus Rhamnosus 1 Cap PO 01/02/25 22:59 1 cap BID ERI Administration Memantine 10 mg 12/05/24 21:00 12/08/24 08:12 Memantine Hcl 5 Mg Tablet PO 01/04/25 20:59 10 mg BID ERI Administration Ondansetron HCl 4 mg 12/03/24 21:58 12/08/24 12:53 Ondansetron Inj 2 Mg/Ml Inj 2 Ml IV 01/02/25 21:57 4 mg Q6H PRN Administration NAUSEA OR VOMITING Protocol Pregabalin 75 mg 12/04/24 09:00 12/08/24 08:12 Pregabalin 75 Mg Capsule PO 01/03/25 08:59 75 mg DAILY ERI Administration Vancomycin HCl 125 mg 12/03/24 22:15 12/08/24 05:31 Vancomycin 125 Mg Capsule PO 12/10/24 22:14 125 mg QID ERI Administration Plan Patient is a 64-year-old female poor historian with a medical history of bipolar disorder, primary hypertension, dementia, COPD, chronic constipation, hyperlipidemia, chronic pain, 1 episode of previous seizure-like activity who presented to [facility] emergency department on 12/03/2024 with chief complaint of generalized weakness and proctalgia. Patient will be admitted for treatment and management of severe MAYELIN secondary to dehydration and poor oral intake. Sepsis Ddx: UTI, C diff, abscess, fistula Patient with fevers and tachycardia all day on 12/07. Known infectious causes include UTI which we were treating well ceftriaxone and C. difficile with p.o. Vanco, status post 10-day course. Source still unclear. Pt is now on broad spectrum antibiotics including Zosyn and p.o. fidaxomycin for C. difficile Denies any pain. Exam is benign. She continues to have multiple bouts of diarrhea daily. Negative for COVID and flu. Chest x-ray shows possible bronchitis. Blood cultures negative at 24 hours. UA culture pending. CT abdomen pelvis from 12/07 does not reveal fistula or abscess Plan: ?On Zosyn (12/07? ?P.o. fidaxomicin (12/07- Generalized weakness MAYELIN-improving Severe dehydration Hypokalemia Anion gap metabolic acidosis Hypocalcemia Diarrhea Secondary to C. difficile infection Patient presented with hypotension and generalized weakness. Patient previously hospitalized from 11/25 - 11/30 for treatment of severe MAYELIN secondary to diarrhea from C. difficile infection. She was discharged home on vancomycin p.o. On admission BUN 109, CR 14.3, bicarb 10.2, corrected calcium 8 and anion gap 23 Patient's MAYELIN most likely prerenal due to poor oral intake and continued diarrhea, albeit improving. CT abdomen and pelvis from 12/04 shows 40 mm right renal cyst, colonic ileus, thickening of the urinary bladder wall and mildly distended gallbladder. Kidney ultrasound on 12/04 recommending elective MRI abdomen kidneys follow-up, pre and postcontrast, to confirm solid mass upper pole right kidney 2.7 x 2.0 x 1.7 cm?this can be done as outpatient Labs improving. Plan: ? Regular diet ? Strict I's and O's ? Encourage oral intake - Discontinued home medication pantoprazole as this can worsen C. difficile infection. Please also discontinue on discharge. ? Lactate Ringer's at 125 cc/h ? Failed 10-day course of p.o. vancomycin. Started on oral fidaxomicin. ? special services director referral:disposition likely SNF as patient has dementia and cannot care for self ? Nephrology, Dr York consulted and closely following the case. Does not recommend dialysis. Patient still with good urine output. ? Outpatient MRI of the kidney Normocytic anemia -Will continue to monitor Essential hypertension COPD Hyperlipidemia Home medication simvastatin 10 Mg p.o. (substituting with atorvastatin in hospital) Stiolto Respimat 2 puffs daily Plan: ? Antihypertensives on hold due to hypotension ? DuoNebs Q4 hourly as needed Dementia Chronic constipation Fibromyalgia Home medication pregabalin 100 Mg p.o. daily and memantine 10 Mg p.o. twice daily Plan: ? Held home medication memantine as this may possibly cause acidosis. ? continue pregabalin 100 Mg p.o. daily Health maintenance: Disposition: IVF, Nephro consult Diet: Regular Lines: pIVs GI Prophylaxis: Contraindicated Thrombo Prophylaxis: Heparin 5000U sc BID Code status: FULL CODE Patient was evaluated and discussed with my attending , Jose Luis Cortez, PGY1 Attending Provider Attestation/Addendum I have examined the patient, reviewed labs and imaging findings, discussed the case with the resident(s), and reviewed entered orders. I agree with the plan of care as outlined in this note, with these additional summaries/recommendations: Patient seen and examined at bedside. Still having several green bowel movements per day and spiking fevers. Unknown etiology at this time and patient is on broad-spectrum antibiotics including Dificid which was restarted yesterday. She was developing a rash on her bottom and lower back because she was refusing to have someone change her. Still unclear etiology of patient's persistent fevers. Will obtain stool studies and cultures and continue to monitor. Obtain KUB today Cody Cabrera MD
--- NOTE | 2024-12-08 15:44 | PD.IDPROG ---
Subjective Subjective Interval history: 64 y/o on very expensive rx for pos pcr test on stool. 5-10% of all persons alive are pos by pcr. beckie adults. so there ia a reasonable chance that the test is falsely positive. gi usually will not scope the individuals and prefer rx. sadly, the dx is usually visual frequent stools can be seen in a variety of settings. whatever rx is applied, do not repat the test as a test of cure . it is not so. if the diarrhea resolves, then no repeat test. if diarrhea does not resolve maybe we have the wrong answer Exam Vital Signs Temp Pulse Resp BP Pulse Ox O2 Del Method 99.0 F 110 H 18 126/79 95 Room Air 12/08/24 12:00 12/08/24 12:00 12/08/24 12:00 12/08/24 12:00 12/08/24 12:00 12/08/24 12:00 Narrative Exam not seen. Objective - Internal Medicine Labs 12/08/24 05:14 12/08/24 05:14 Labs: Laboratory Results - last 24 hr 12/07/24 12/07/24 12/08/24 17:55 18:14 05:14 WBC 5.4 RBC 2.69 L Hgb 8.4 L Hct 26.4 L MCV 98 MCH 31.2 MCHC 31.8 RDW Std Deviation 46.6 H Plt Count 199 Neut % (Auto) 72 Lymph % (Auto) 17 [place] % (Auto) 10 Eos % (Auto) 0 Baso % (Auto) 0 Neut # (Auto) 3.9 Lymph # (Auto) 0.9 L [place] # (Auto) 0.6 Eos # (Auto) 0.0 Baso # (Auto) 0.0 Immature Gran # (Auto) 0.07 H Absolute Nucleated RBC 0.00 Immature Gran % 1 H Nucleated RBC % 0 Sodium 142 Potassium 2.8 L Chloride 108 H Carbon Dioxide 24.4 Anion Gap 10 BUN 22 Creatinine 1.9 H Estim Creat Clear Calc 26.4 L eGFR 29 L BUN/Creatinine Ratio 12 Glucose 101 Calculated Osmolality 286 Lactic Acid 2.0 Calcium 8.4 Corrected Calcium 8.6 Phosphorus 5.6 H Magnesium 2.0 Total Bilirubin 0.2 L AST 26 ALT 19 Alkaline Phosphatase 67 Total Protein 6.0 Albumin 3.7 Globulin 2.3 Albumin/Globulin Ratio 1.6 Ur Collection Type Catheter Urine Color Lt-Yellow Urine Clarity Turbid A Urine pH 6.0 Ur Specific [place] 1.033 Urine Protein 1+ A Urine Glucose (UA) Negative Urine Ketones Negative Urine Blood 1+ A Urine Nitrite Negative Urine Bilirubin Negative Urine Urobilinogen (Auto) Negative Ur Leukocyte Esterase Negative Urine RBC 20 H Urine WBC 0 Ur Squamous Epith Cells < 1 Urine Bacteria Rare Influenza A (Rapid) Negative Influenza B (Rapid) Negative SARS-CoV-2 Ag (Rapid) Negative ABG Interpretation ABG results: 12/03/24 23:07 VBG pH 7.23 L VBG pCO2 36 VBG pO2 30 VBG Base Excess -11 L Assessment & Plan Time Spent With Patient Time: Total time spent is greater than 50% in coordination of care (as documented) at patient's floor/unit and/or counseling patient:
[2024-12-08 15:47] LABS: Potassium 3.5 mMol/L (3.4-5.1)
[2024-12-08 16:00] VITALS: BP 116/77; PULSE 110; PULSE 113; RESP 17; TEMP 38.1; O2SAT 95
--- NOTE | 2024-12-08 16:21 | XR_ITS ---
Examination: Abdomen AP single view Technique: AP portable supine abdomen, single view Exam date and time: December 08, 2024 1725 hrs. Indications: Diagnosis C. Difficile, abdominal distention Findings: Mild to moderate colonic and small bowel ileus No air in the bowel wall No free air Lung bases clear Impression: Mild to moderate colonic and small bowel ileus
[2024-12-08] MEDS: MORPHINE SULF INJ 10 MG/ML VIAL 2 MG IV (17:25)
--- NOTE | 2024-12-08 18:13 | PC.NURSE ---
Patient has several liquid green bowel movements today. Patient refused to be cleaned several times today complaining of pain to her skin. Patient groin red and inflammed. MD notified of skin breakdown and frequent liquid bowel movements causing skin irritation and breakdown.
[2024-12-08 18:40] LABS: Anion Gap 10 (7-16); BUN/Creatinine Ratio 10 Ratio (12-20); Blood Urea Nitrogen 18 mg/dL (9-23); Carbon Dioxide 21.8 mMol/L (20.0-31.0); Chloride 106 mMol/L (98-107); Creatinine (Component) 1.8 mg/dL (0.6-1.3); Estimated Creatinine Clearance 27.8 mL/min (>60); Glucose 100 mg/dL (74-106); Osmolality,Calculated 277 (275-295); Potassium 3.9 mMol/L (3.4-5.1); Sodium 138 mMol/L (136-145); eGFR 31 See Note
[2024-12-08 20:00] VITALS: BP 144/78; PULSE 114; RESP 20; TEMP 36.6; O2SAT 94
[2024-12-08] MEDS: RINGERS LACTATED 1000 ML 1,000 ML 150 ML IV (21:25)
--- NOTE | 2024-12-08 23:56 | VVPN_ITS ---
Telemedicine visit statement This visit was conducted with the use of interactive audio and video telecommunications system that permits real time communication between the patient and the provider. Patient's verbal consent for virtual visit was obtained on 12/08/24 at 2356. Documentation for date of: 12/08/24 Subjective Subjective Interval history: Patient is in telemetry today,no new symptoms reported. continues to have watery stool and rashes in the rectal area from irritation . Virtual exam Vital Signs Temp Pulse Resp BP Pulse Ox O2 Del Method 97.8 F 114 H 20 144/78 H 94 L Room Air 12/08/24 20:00 12/08/24 20:00 12/08/24 20:00 12/08/24 20:00 12/08/24 20:00 12/08/24 20:00 Objective Labs 12/09/24 07:47 12/09/24 07:47 Labs: Laboratory Results - last 24 hr 12/08/24 12/08/24 12/08/24 05:14 15:22 18:00 WBC 5.4 RBC 2.69 L Hgb 8.4 L Hct 26.4 L MCV 98 MCH 31.2 MCHC 31.8 RDW Std Deviation 46.6 H Plt Count 199 Neut % (Auto) 72 Lymph % (Auto) 17 [place] % (Auto) 10 Eos % (Auto) 0 Baso % (Auto) 0 Neut # (Auto) 3.9 Lymph # (Auto) 0.9 L [place] # (Auto) 0.6 Eos # (Auto) 0.0 Baso # (Auto) 0.0 Immature Gran # (Auto) 0.07 H Absolute Nucleated RBC 0.00 Immature Gran % 1 H Nucleated RBC % 0 Sodium 142 138 Potassium 2.8 L 3.5 D 3.9 Chloride 108 H 106 Carbon Dioxide 24.4 21.8 Anion Gap 10 10 BUN 22 18 Creatinine 1.9 H 1.8 H Estim Creat Clear Calc 26.4 L 27.8 L eGFR 29 L 31 L BUN/Creatinine Ratio 12 10 L Glucose 101 100 Calculated Osmolality 286 277 Calcium 8.4 8.0 L Corrected Calcium 8.6 Phosphorus 5.6 H Magnesium 2.0 Total Bilirubin 0.2 L AST 26 ALT 19 Alkaline Phosphatase 67 Total Protein 6.0 Albumin 3.7 Globulin 2.3 Albumin/Globulin Ratio 1.6 ABG Interpretation ABG results: 12/03/24 23:07 VBG pH 7.23 L VBG pCO2 36 VBG pO2 30 VBG Base Excess -11 L Assessment & Plan Assessment 1) Altered mental status: resolved Neurologically stable. (2) Hypertension: Consider home meds (3) Dementia: at baseline: stable. continue with memantine. (4) C. diff colitis: with persistent watery stool COntinue current mgt, as per primary team.
[2024-12-09] VITALS (7 sets, daily range): BP systolic 93–145; BP diastolic 56–79; PULSE 79–105; RESP 14–25; TEMP 36.2–37.9; O2SAT 88–98
[2024-12-09 00:55] LABS: Anion Gap 8 (7-16); BUN/Creatinine Ratio 9 Ratio (12-20); Blood Urea Nitrogen 19 mg/dL (9-23); Calcium 8.3 mg/dL (8.3-10.6); Carbon Dioxide 22.7 mMol/L (20.0-31.0); Chloride 109 mMol/L (98-107); Creatinine (Component) 2.1 mg/dL (0.6-1.3); Estimated Creatinine Clearance 23.9 mL/min (>60); Glucose 100 mg/dL (74-106); Osmolality,Calculated 281 (275-295); Potassium 4.2 mMol/L (3.4-5.1); Sodium 140 mMol/L (136-145); eGFR 26 See Note
[2024-12-09] MEDS: RINGERS LACTATED 1000 ML 1,000 ML 999 ML IV (02:05)
[2024-12-09] MEDS: RINGERS LACTATED 1000 ML 1,000 ML 150 ML IV ×2 (03:39→16:41)
--- NOTE | 2024-12-09 04:39 | PC.NURSE ---
patient has an order for stool culture , stool for wbc's and glardia antigen, EIA, stool but couldnt collect a sample because patients stool is really watery like liquid and being absorbged with the under pad. resident doctor was informed and said to discuss it with the primary care team. and also the patient is refusing to be cleaned doctor said if patient is still refusing this morning just inform him and he will try to talk to the patient to convince the patient.
[2024-12-09] MEDS: VANCOMYCIN 125 MG CAPSULE PO ×4 (05:01→21:17)
[2024-12-09] MEDS: PIPER/TAZO INJ 4.5 GM in SODIUM CHLORIDE 0.9% (P) 100 ML IV (05:02)
--- NOTE | 2024-12-09 07:45 | PC.NURSE ---
Patient incontinent, had bowel movement and refuses to be cleaned. Patient alert and oriented and expressed that she does not want to be cleaned although elizabeth area and buttocks saturated in feces.
[2024-12-09 08:04] LABS: Basophils % (Auto) 0 % (0-2.5); Eosinophils % (Auto) 0 % (0-10); Hematocrit 25.6 % (36.0-46.0); Immature Granulocytes % (Auto) 1 % (0-0); Immature Granulocytes Auto 0.05 Thou/mm3 (0.00-0.00); Lymphocytes % (Auto) 20 % (10-50); Mean Corpuscular HGB Conc 31.6 g/dl (31.0-37.0); Mean Corpuscular Hemoglobin 30.7 pg (25.0-35.0); Mean Corpuscular Volume 97 fL (80-100); Monocytes # (Auto) 0.5 Thou/mm3 (0.0-0.8); Monocytes % (Auto) 10 % (0-12); Neutrophils # (Auto) 3.3 Thou/mm3 (1.8-7.7); Neutrophils % (Auto) 69 % (37-80); Nucleated Red Blood Cell % 0 /100 WBC (0); Platelet Count 188 Thou/mm3 (140-440); RDW Standard Deviation 48.1 fL (36.4-46.3); Red Blood Count 2.64 Miln/mm3 (4.00-5.20); White Blood Count 4.8 Thou/mm3 (3.6-11.0)
[2024-12-09 08:25] LABS: Alanine Aminotransferase 28 U/L (10-49); Albumin, Serum 3.4 gm/dL (3.4-4.8); Albumin/Globulin Ratio 1.5 (1.2-2.2); Alkaline Phosphatase 61 U/L (46-116); Anion Gap 9 (7-16); Aspartate Amino Transferase 37 U/L (0-34); BUN/Creatinine Ratio 9 Ratio (12-20); Bilirubin,Total 0.2 mg/dL (0.3-1.2); Blood Urea Nitrogen 17 mg/dL (9-23); Calcium (Corrected) 8.5 mg/dL (8.5-10.1); Carbon Dioxide 19.8 mMol/L (20.0-31.0); Chloride 110 mMol/L (98-107); Globulin 2.3 gm/dL (2.3-3.5); Glucose 92 mg/dL (74-106); Magnesium 1.6 mg/dL (1.6-2.6); Osmolality,Calculated 279 (275-295); Phosphorous 3.5 mg/dL (2.4-5.1); Potassium 3.9 mMol/L (3.4-5.1); Sodium 139 mMol/L (136-145); Total Protein 5.7 gm/dL (5.7-8.2); eGFR 28 See Note
[2024-12-09 08:39] LABS: Hemoglobin 8.1 g/dL (12.0-16.0)
[2024-12-09] MEDS: MEMANTINE HCL 5 MG TABLET 10 MG PO ×2 (09:26→21:17)
[2024-12-09] MEDS: PREGABALIN 75 MG CAPSULE PO (09:26)
[2024-12-09] MEDS: LACTOBACILLUS RHAMNOSUS 1 CAP PO ×2 (09:26→21:17)
[2024-12-09 14:39] LABS: Cocci Serology, IgM Negative (Negative)
--- NOTE | 2024-12-09 15:23 | PD.RESPRO ---
Documentation for date of: 12/09/24 Subjective Subjective Interval history: Patient seen and examined at bedside. Overnight patient received 1 bolus LR. Per nursing, not able to send in stool sample for studies/culture because of loose consistency. She was denying to get cleaned after bowel movements. As a result, now has irritation, erythema, and some tenderness of skin on buttocks descending down posterior leg. Having 6?8 movements of diarrhea. Patient is still able to get up and use the toilet, will hold off from placing rectal tube. Patient is apathetic and did not want to speak. Denied physical examination. Nursing staff were able to take pictures of rash. Has remained afebrile since yesterday. Will continue vancomycin, Zosyn, fidaxomicin for C. difficile treatment. PT is recommended patient to undergo therapy waiting for SNF placement. Exam Vital Signs Temp Pulse Resp BP Pulse Ox O2 Del Method 97.5 F 79 20 115/76 88 L Room Air 12/09/24 12:00 12/09/24 12:00 12/09/24 12:00 12/09/24 12:00 12/09/24 12:12/09/24 12:00 Narrative Exam Constitutional: Appears uncomfortable Eyes: no conjunctival injection , symmetrical lids. Refused rest of physical exam. Objective Labs 12/09/24 07:47 12/09/24 07:47 Labs: Laboratory Results - last 24 hr 12/08/24 12/08/24 12/09/24 15:22 18:00 00:28 WBC RBC Hgb Hct MCV MCH MCHC RDW Std Deviation Plt Count Neut % (Auto) Lymph % (Auto) [place] % (Auto) Eos % (Auto) Baso % (Auto) Neut # (Auto) Lymph # (Auto) [place] # (Auto) Eos # (Auto) Baso # (Auto) Immature Gran # (Auto) Absolute Nucleated RBC Immature Gran % Nucleated RBC % Sodium 138 140 Potassium 3.5 D 3.9 4.2 Chloride 106 109 H Carbon Dioxide 21.8 22.7 Anion Gap 10 8 BUN 18 19 Creatinine 1.8 H 2.1 H Estim Creat Clear Calc 27.8 L 23.9 L eGFR 31 L 26 L BUN/Creatinine Ratio 10 L 9 L Glucose 100 100 Calculated Osmolality 277 281 Calcium 8.0 L 8.3 Corrected Calcium Phosphorus Magnesium Total Bilirubin AST ALT Alkaline Phosphatase Total Protein Albumin Globulin Albumin/Globulin Ratio Coccidioides IgM Ab 12/09/24 12/09/24 12/09/24 07:47 07:47 07:47 WBC 4.8 RBC 2.64 L Hgb 8.1 L Hct 25.6 L MCV 97 MCH 30.7 MCHC 31.6 RDW Std Deviation 48.1 H Plt Count 188 Neut % (Auto) 69 Lymph % (Auto) 20 [place] % (Auto) 10 Eos % (Auto) 0 Baso % (Auto) 0 Neut # (Auto) 3.3 Lymph # (Auto) 1.0 [place] # (Auto) 0.5 Eos # (Auto) 0.0 Baso # (Auto) 0.0 Immature Gran # (Auto) 0.05 H Absolute Nucleated RBC 0.00 Immature Gran % 1 H Nucleated RBC % 0 Sodium Cancelled 139 Potassium Cancelled 3.9 Chloride Cancelled Carbon Dioxide Anion Gap BUN Creatinine Estim Creat Clear Calc eGFR BUN/Creatinine Ratio Glucose Calculated Osmolality Calcium Corrected Calcium Phosphorus Magnesium Total Bilirubin AST ALT Alkaline Phosphatase Total Protein Albumin Globulin Albumin/Globulin Ratio Coccidioides IgM Ab 12/09/24 12/09/24 12/09/24 07:47 07:47 07:47 WBC RBC Hgb Hct MCV MCH MCHC RDW Std Deviation Plt Count Neut % (Auto) Lymph % (Auto) [place] % (Auto) Eos % (Auto) Baso % (Auto) Neut # (Auto) Lymph # (Auto) [place] # (Auto) Eos # (Auto) Baso # (Auto) Immature Gran # (Auto) Absolute Nucleated RBC Immature Gran % Nucleated RBC % Sodium Potassium Chloride 110 H Carbon Dioxide Cancelled 19.8 L Anion Gap Cancelled 9 BUN Cancelled Creatinine Estim Creat Clear Calc eGFR BUN/Creatinine Ratio Glucose Calculated Osmolality Calcium Corrected Calcium Phosphorus Magnesium Total Bilirubin AST ALT Alkaline Phosphatase Total Protein Albumin Globulin Albumin/Globulin Ratio Coccidioides IgM Ab 12/09/24 12/09/24 12/09/24 07:47 07:47 07:47 WBC RBC Hgb Hct MCV MCH MCHC RDW Std Deviation Plt Count Neut % (Auto) Lymph % (Auto) [place] % (Auto) Eos % (Auto) Baso % (Auto) Neut # (Auto) Lymph # (Auto) [place] # (Auto) Eos # (Auto) Baso # (Auto) Immature Gran # (Auto) Absolute Nucleated RBC Immature Gran % Nucleated RBC % Sodium Potassium Chloride Carbon Dioxide Anion Gap BUN 17 Creatinine Cancelled 2.0 H Estim Creat Clear Calc Cancelled 25.0 L eGFR Cancelled BUN/Creatinine Ratio Glucose Calculated Osmolality Calcium Corrected Calcium Phosphorus Magnesium Total Bilirubin AST ALT Alkaline Phosphatase Total Protein Albumin Globulin Albumin/Globulin Ratio Coccidioides IgM Ab 12/09/24 12/09/24 12/09/24 07:47 07:47 07:47 WBC RBC Hgb Hct MCV MCH MCHC RDW Std Deviation Plt Count Neut % (Auto) Lymph % (Auto) [place] % (Auto) Eos % (Auto) Baso % (Auto) Neut # (Auto) Lymph # (Auto) [place] # (Auto) Eos # (Auto) Baso # (Auto) Immature Gran # (Auto) Absolute Nucleated RBC Immature Gran % Nucleated RBC % Sodium Potassium Chloride Carbon Dioxide Anion Gap BUN Creatinine Estim Creat Clear Calc eGFR 28 L BUN/Creatinine Ratio Cancelled 9 L Glucose Cancelled 92 Calculated Osmolality Cancelled Calcium Corrected Calcium Phosphorus Magnesium Total Bilirubin AST ALT Alkaline Phosphatase Total Protein Albumin Globulin Albumin/Globulin Ratio Coccidioides IgM Ab 12/09/24 12/09/24 07:47 07:47 WBC RBC Hgb Hct MCV MCH MCHC RDW Std Deviation Plt Count Neut % (Auto) Lymph % (Auto) [place] % (Auto) Eos % (Auto) Baso % (Auto) Neut # (Auto) Lymph # (Auto) [place] # (Auto) Eos # (Auto) Baso # (Auto) Immature Gran # (Auto) Absolute Nucleated RBC Immature Gran % Nucleated RBC % Sodium Potassium Chloride Carbon Dioxide Anion Gap BUN Creatinine Estim Creat Clear Calc eGFR BUN/Creatinine Ratio Glucose Calculated Osmolality 279 Calcium Cancelled 8.0 L Corrected Calcium 8.5 Phosphorus 3.5 Magnesium 1.6 Total Bilirubin 0.2 L AST 37 H ALT 28 Alkaline Phosphatase 61 Total Protein 5.7 Albumin 3.4 Globulin 2.3 Albumin/Globulin Ratio 1.5 Coccidioides IgM Ab Negative ABG Interpretation ABG results: 12/03/24 23:07 VBG pH 7.23 L VBG pCO2 36 VBG pO2 30 VBG Base Excess -11 L Quality Measures Quality Measures VTE prophylaxis Assessment & Plan Assessment Current Active Medications: Generic Name Dose Route Start Last Admin Trade Name Freq PRN Reason Stop Dose Admin Acetaminophen 650 mg 12/07/24 10:55 12/07/24 16:39 Acetaminophen 325 Mg Tablet PO 01/02/25 21:57 650 mg Q6H PRN Administration Fever >100.3 or pain 1-3 Protocol Albuterol/Ipratropium 3 ml 12/03/24 21:58 Albuterol/Ipratropium (Duoneb) Rt Brittany 3 Ml Nebu INH 01/02/25 21:57 Q4HR PRN SHORTNESS OF BREATH OR WHEEZE Fidaxomicin 200 mg 12/07/24 21:00 12/08/24 21:03 Fidaxomicin 200 Mg Tablet (Non-Formulary) PO 12/17/24 09:01 200 mg BID ERI Administration Heparin Sodium (Porcine) 5,000 unit 12/07/24 21:00 12/09/24 09:33 Heparin Sod Inj 5000 Unit/Ml Vial SC 12/18/24 08:59 Not Given Q12HR ERI Lactated Ringer's 1,000 mls @ 150 mls/hr 12/08/24 16:28 12/09/24 03:39 Lactated Ringers IV 01/07/25 16:27 150 mls/hr .Q6H40M ERI Administration Piperacillin Sod/Tazobactam 100 mls @ 200 mls/hr 12/09/24 15:30 Sod 4.5 gm/ Sodium Chloride IV 12/16/24 15:29 Q8HR ERI Lactobacillus Rhamnosus 1 cap 12/03/24 23:00 12/09/24 09:26 Lactobacillus Rhamnosus 1 Cap PO 01/02/25 22:59 1 cap BID ERI Administration Memantine 10 mg 12/05/24 21:00 12/09/24 09:26 Memantine Hcl 5 Mg Tablet PO 01/04/25 20:59 10 mg BID ERI Administration Ondansetron HCl 4 mg 12/03/24 21:58 12/08/24 12:53 Ondansetron Inj 2 Mg/Ml Inj 2 Ml IV 01/02/25 21:57 4 mg Q6H PRN Administration NAUSEA OR VOMITING Protocol Vancomycin HCl 125 mg 12/03/24 22:15 12/09/24 11:51 Vancomycin 125 Mg Capsule PO 12/10/24 22:14 125 mg QID ERI Administration Plan Patient is a 64-year-old female poor historian with a medical history of bipolar disorder, primary hypertension, dementia, COPD, chronic constipation, hyperlipidemia, chronic pain, 1 episode of previous seizure-like activity who presented to [facility] emergency department on 12/03/2024 with chief complaint of generalized weakness and proctalgia. Patient will be admitted for treatment and management of severe MAYELIN secondary to dehydration and poor oral intake. Sepsis Ddx: UTI, C diff, abscess, fistula Patient with fevers and tachycardia all day on 12/07. Known infectious causes include UTI which we were treating well ceftriaxone and C. difficile with p.o. Vanco, status post 10-day course. Source still unclear. Pt is now on broad spectrum antibiotics including Zosyn and p.o. fidaxomycin for C. difficile Denies any pain. Exam is benign. She continues to have multiple bouts of diarrhea daily. Negative for COVID and flu. Chest x-ray shows possible bronchitis. Blood cultures negative at 24 hours. UA culture pending. CT abdomen pelvis from 12/07 does not reveal fistula or abscess Plan: ?On Zosyn (12/07? ?P.o. fidaxomicin (12/07- MAYELIN-improving right Renal cyst Most likely prerenal in setting of dehydration, decreased oral intake, diarrhea. However BUN/creatinine ratio 120 indicating otherwise. May be due to aggressive hypoperfusion to kidneys. Patient also does have renal cyst. -maintenance fluids -avoid nephrotoxic agents -daily CMP -Monitor I and Os -Follow up outpatient for further imaging and management of renal cyst Hypokalemia Anion gap metabolic acidosis Hypocalcemia Diarrhea Secondary to C. difficile infection Patient presented with hypotension and generalized weakness. Patient previously hospitalized from 11/25 - 11/30 for treatment of severe MAYELIN secondary to diarrhea from C. difficile infection. She was discharged home on vancomycin p.o. On admission BUN 109, CR 14.3, bicarb 10.2, corrected calcium 8 and anion gap 23 Patient's MAYELIN most likely prerenal due to poor oral intake and continued diarrhea, albeit improving. CT abdomen and pelvis from 12/04 shows 40 mm right renal cyst, colonic ileus, thickening of the urinary bladder wall and mildly distended gallbladder. Kidney ultrasound on 12/04 recommending elective MRI abdomen kidneys follow-up, pre and postcontrast, to confirm solid mass upper pole right kidney 2.7 x 2.0 x 1.7 cm?this can be done as outpatient Labs improving. Plan: ? Regular diet ? Strict I's and O's ? Encourage oral intake - Discontinued home medication pantoprazole as this can worsen C. difficile infection. Please also discontinue on discharge. ? Lactate Ringer's at 125 cc/h ? Failed 10-day course of p.o. vancomycin. Started on oral fidaxomicin. ? 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 Nephrology, Dr York consulted and closely following the case. Does not recommend dialysis. Patient still with good urine output. Normocytic anemia -Will continue to monitor Essential hypertension COPD Hyperlipidemia Home medication simvastatin 10 Mg p.o. (substituting with atorvastatin in hospital) Stiolto Respimat 2 puffs daily Plan: ? Antihypertensives on hold due to hypotension ? DuoNebs Q4 hourly as needed Dementia Chronic constipation Fibromyalgia Home medication pregabalin 100 Mg p.o. daily and memantine 10 Mg p.o. twice daily Plan: ? Held home medication memantine as this may possibly cause acidosis. ? continue pregabalin 100 Mg p.o. daily Health maintenance: Disposition: Treatment of C. difficile and sepsis Diet: Regular Lines: pIVs GI Prophylaxis: Contraindicated Thrombo Prophylaxis: Heparin 5000U sc BID Code status: FULL CODE Patient was evaluated and discussed with my attending . Vicenta Matute, PGY1 Attending Provider Attestation/Addendum I have examined the patient, reviewed labs and imaging findings, discussed the case with the resident(s), and reviewed entered orders. I agree with the plan of care as outlined in this note, with these additional summaries/recommendations: Patient initially presented with severe diarrhea, dizziness, hypotension, MAYELIN suspected to be the result of continued/worsening C. difficile infection. She was continued on oral vancomycin which initially was suspected to be improving her diarrheal symptoms, however patient continues to spike fevers so antibiotics were escalated to include Zosyn for possible UTI. Patient with persistent fevers concerning for possible fulminant infection versus fistula versus megacolon. Escalated to for Dificid. Despite these changes, patient with persistent watery, green stools several times a day with fevers and has begun developing redness and rash of her buttocks and posterior lower extremities. Unclear if this is the result of C. difficile infection at this time, suspect alternative etiology for persistent likely infectious diarrhea. Repeat stool cultures and stool WBCs ordered and pending. Patient previously appeared too weak to get out of bed, but today at bedside was bothered by needing to be changed and eventually got up on her own to go to the bathroom. Cody Cabrera MD
[2024-12-09] MEDS: PIPER/TAZO INJ 4.5 GM in SODIUM CHLORIDE 0.9% 100 ML IV (16:41)
--- NOTE | 2024-12-09 19:27 | PC.NURSE ---
Patient pulled out 6 IV throughout the day. At 1845 patient pulled out only IV and refused replacement. Oncoming nurse notified.
[2024-12-09] MEDS: HEPARIN SOD INJ 5000 UNIT/ML VIAL SC (21:16)
[2024-12-09] MEDS: FIDAXOMICIN 200 MG TABLET (NON-FORMULARY) PO (21:17)
[2024-12-09 22:20] LABS: Stool for WBCs Many (Negative)
--- NOTE | 2024-12-09 22:53 | VVPN_ITS ---
Telemedicine visit statement This visit was conducted with the use of interactive audio and video telecommunications system that permits real time communication between the patient and the provider. Patient's verbal consent for virtual visit was obtained on 12/09/24 at 2253. Documentation for date of: 12/09/24 Subjective Subjective Interval history: Patient is in telemetry today,no new symptoms reported. continues to have watery stool and rashes in the rectal area from irritation . Virtual exam Vital Signs Temp Pulse Resp BP Pulse Ox O2 Del Method 97.2 F 102 H 14 112/73 93 L Room Air 12/09/24 20:00 12/09/24 20:00 12/09/24 20:00 12/09/24 20:00 12/09/24 20:00 12/09/24 16:00 Objective Labs 12/09/24 07:47 12/09/24 07:47 Labs: Laboratory Results - last 24 hr 12/09/24 12/09/24 12/09/24 00:28 07:47 07:47 WBC 4.8 RBC 2.64 L Hgb 8.1 L Hct 25.6 L MCV 97 MCH 30.7 MCHC 31.6 RDW Std Deviation 48.1 H Plt Count 188 Neut % (Auto) 69 Lymph % (Auto) 20 [place] % (Auto) 10 Eos % (Auto) 0 Baso % (Auto) 0 Neut # (Auto) 3.3 Lymph # (Auto) 1.0 [place] # (Auto) 0.5 Eos # (Auto) 0.0 Baso # (Auto) 0.0 Immature Gran # (Auto) 0.05 H Absolute Nucleated RBC 0.00 Immature Gran % 1 H Nucleated RBC % 0 Sodium 140 Cancelled 139 Potassium 4.2 Cancelled Chloride 109 H Carbon Dioxide 22.7 Anion Gap 8 BUN 19 Creatinine 2.1 H Estim Creat Clear Calc 23.9 L eGFR 26 L BUN/Creatinine Ratio 9 L Glucose 100 Calculated Osmolality 281 Calcium 8.3 Corrected Calcium Phosphorus Magnesium Total Bilirubin AST ALT Alkaline Phosphatase Total Protein Albumin Globulin Albumin/Globulin Ratio Stool for White Cells Coccidioides IgM Ab 12/09/24 12/09/24 12/09/24 07:47 07:47 07:47 WBC RBC Hgb Hct MCV MCH MCHC RDW Std Deviation Plt Count Neut % (Auto) Lymph % (Auto) [place] % (Auto) Eos % (Auto) Baso % (Auto) Neut # (Auto) Lymph # (Auto) [place] # (Auto) Eos # (Auto) Baso # (Auto) Immature Gran # (Auto) Absolute Nucleated RBC Immature Gran % Nucleated RBC % Sodium Potassium 3.9 Chloride Cancelled 110 H Carbon Dioxide Cancelled 19.8 L Anion Gap Cancelled BUN Creatinine Estim Creat Clear Calc eGFR BUN/Creatinine Ratio Glucose Calculated Osmolality Calcium Corrected Calcium Phosphorus Magnesium Total Bilirubin AST ALT Alkaline Phosphatase Total Protein Albumin Globulin Albumin/Globulin Ratio Stool for White Cells Coccidioides IgM Ab 12/09/24 12/09/24 12/09/24 07:47 07:47 07:47 WBC RBC Hgb Hct MCV MCH MCHC RDW Std Deviation Plt Count Neut % (Auto) Lymph % (Auto) [place] % (Auto) Eos % (Auto) Baso % (Auto) Neut # (Auto) Lymph # (Auto) [place] # (Auto) Eos # (Auto) Baso # (Auto) Immature Gran # (Auto) Absolute Nucleated RBC Immature Gran % Nucleated RBC % Sodium Potassium Chloride Carbon Dioxide Anion Gap 9 BUN Cancelled 17 Creatinine Cancelled 2.0 H Estim Creat Clear Calc Cancelled eGFR BUN/Creatinine Ratio Glucose Calculated Osmolality Calcium Corrected Calcium Phosphorus Magnesium Total Bilirubin AST ALT Alkaline Phosphatase Total Protein Albumin Globulin Albumin/Globulin Ratio Stool for White Cells Coccidioides IgM Ab 12/09/24 12/09/24 12/09/24 07:47 07:47 07:47 WBC RBC Hgb Hct MCV MCH MCHC RDW Std Deviation Plt Count Neut % (Auto) Lymph % (Auto) [place] % (Auto) Eos % (Auto) Baso % (Auto) Neut # (Auto) Lymph # (Auto) [place] # (Auto) Eos # (Auto) Baso # (Auto) Immature Gran # (Auto) Absolute Nucleated RBC Immature Gran % Nucleated RBC % Sodium Potassium Chloride Carbon Dioxide Anion Gap BUN Creatinine Estim Creat Clear Calc 25.0 L eGFR Cancelled 28 L BUN/Creatinine Ratio Cancelled 9 L Glucose Cancelled Calculated Osmolality Calcium Corrected Calcium Phosphorus Magnesium Total Bilirubin AST ALT Alkaline Phosphatase Total Protein Albumin Globulin Albumin/Globulin Ratio Stool for White Cells Coccidioides IgM Ab 12/09/24 12/09/24 12/09/24 07:47 07:47 07:47 WBC RBC Hgb Hct MCV MCH MCHC RDW Std Deviation Plt Count Neut % (Auto) Lymph % (Auto) [place] % (Auto) Eos % (Auto) Baso % (Auto) Neut # (Auto) Lymph # (Auto) [place] # (Auto) Eos # (Auto) Baso # (Auto) Immature Gran # (Auto) Absolute Nucleated RBC Immature Gran % Nucleated RBC % Sodium Potassium Chloride Carbon Dioxide Anion Gap BUN Creatinine Estim Creat Clear Calc eGFR BUN/Creatinine Ratio Glucose 92 Calculated Osmolality Cancelled 279 Calcium Cancelled 8.0 L Corrected Calcium 8.5 Phosphorus 3.5 Magnesium 1.6 Total Bilirubin 0.2 L AST 37 H ALT 28 Alkaline Phosphatase 61 Total Protein 5.7 Albumin 3.4 Globulin 2.3 Albumin/Globulin Ratio 1.5 Stool for White Cells Coccidioides IgM Ab Negative 12/09/24 17:02 WBC RBC Hgb Hct MCV MCH MCHC RDW Std Deviation Plt Count Neut % (Auto) Lymph % (Auto) [place] % (Auto) Eos % (Auto) Baso % (Auto) Neut # (Auto) Lymph # (Auto) [place] # (Auto) Eos # (Auto) Baso # (Auto) Immature Gran # (Auto) Absolute Nucleated RBC Immature Gran % Nucleated RBC % Sodium Potassium Chloride Carbon Dioxide Anion Gap BUN Creatinine Estim Creat Clear Calc eGFR BUN/Creatinine Ratio Glucose Calculated Osmolality Calcium Corrected Calcium Phosphorus Magnesium Total Bilirubin AST ALT Alkaline Phosphatase Total Protein Albumin Globulin Albumin/Globulin Ratio Stool for White Cells Many A Coccidioides IgM Ab ABG Interpretation ABG results: 12/03/24 23:07 VBG pH 7.23 L VBG pCO2 36 VBG pO2 30 VBG Base Excess -11 L Assessment & Plan Assessment 1) Altered mental status: resolved Neurologically stable. (2) Hypertension: Consider home meds (3) Dementia: at baseline: stable. continue with memantine. (4) C. diff colitis: with persistent watery stool COntinue current mgt, as per primary team.
--- NOTE | 2024-12-09 23:41 | PC.NURSE ---
called dr. Colin regarding patient rashes on her bottom that its getting worst and already bleeding on some part then doctor Colin came to see her but patient refused to be checked then doctor colin asked the patient if she's ok to be seen by a female nurse in the morning and the patient was ok with that. also the patient doesnt have any iv access now that i cant give her due of giselesyn doctor Colin is aware.
[2024-12-10] VITALS: PULSE 101
[2024-12-10] MEDS: RINGERS LACTATED 1000 ML 1,000 ML 150 ML IV (04:01)
[2024-12-10] MEDS: SODIUM CHLORIDE 0.9% 1000 ML 1,000 ML 150 ML IV (05:13)
[2024-12-10 05:15] VITALS: PULSE 73; RESP 18; O2SAT 92
[2024-12-10] MEDS: PIPER/TAZO INJ 4.5 GM in SODIUM CHLORIDE 0.9% 100 ML IV (05:22)
[2024-12-10] MEDS: VANCOMYCIN 125 MG CAPSULE PO ×4 (05:22→20:24)
[2024-12-10 06:00] VITALS: BMI 24.5
[2024-12-10 08:00] VITALS: BP 116/70; PULSE 92; RESP 18; TEMP 36.6; O2SAT 98
[2024-12-10 08:30] VITALS: PULSE 93; RESP 18; O2SAT 99
[2024-12-10] MEDS: LACTOBACILLUS RHAMNOSUS 1 CAP PO ×2 (08:56→20:24)
[2024-12-10] MEDS: MEMANTINE HCL 5 MG TABLET 10 MG PO ×2 (08:58→20:24)
[2024-12-10] MEDS: HEPARIN SOD INJ 5000 UNIT/ML VIAL SC ×2 (08:58→20:26)
--- NOTE | 2024-12-10 09:22 | PD.IDPROG ---
Subjective Subjective Interval history: hx as noted. cdiff repeated despite my recs against that strategy. was on both dificid and oral vanco and also zosyn. cxr clear, so value of zosyn low to absent. Exam Vital Signs Temp Pulse Resp BP Pulse Ox O2 Del Method 97.8 F 92 18 116/70 98 Room Air 12/10/24 08:00 12/10/24 08:00 12/10/24 08:00 12/10/24 08:00 12/10/24 08:00 12/10/24 08:00 Narrative Exam not a good historian. benign exam though. Objective - Internal Medicine Labs 12/10/24 05:00 12/09/24 07:47 Labs: Laboratory Results - last 24 hr 12/09/24 12/09/24 07:47 17:02 Stool for White Cells Many A Coccidioides IgM Ab Negative ABG Interpretation ABG results: 12/03/24 23:07 VBG pH 7.23 L VBG pCO2 36 VBG pO2 30 VBG Base Excess -11 L Assessment & Plan A&P Narrative pos cdiff test, pcr repeat pending there is not data to support use of dificid for acute cdiff over po vanco with a taper. checking for cocci ok if she gets outside favor po vanco with a taper due to cost to hospital. po vanco is 125 qid for 10d then taper is 125 tid for a week then 125 bid for a week, then 125 daily for a week. I usually favor kefir yogurt after that daily for a week stopped the zosyn and the dificid. extended the po vanco to wed will likely check wed if she remains if cocci pos, ok to treat empirically with flucon 400/day till data back from [facility] please do not repeat the cdiff test as a test of cure . that is not appropriate. await other tests and overall status. note that pt was quite dehydrated on arrival but wbc/hgb and plts were ok. you may want to have a goals of care discussion given her hx. dementia is not currently reversible. I ordered tests to evaluate for reversible causes of dementia for am. Time Spent With Patient Time: Total time spent is greater than 50% in coordination of care (as documented) at patient's floor/unit and/or counseling patient:
[2024-12-10 09:36] LABS: Basophils % (Auto) 0 % (0-2.5); Eosinophils # (Auto) 0.1 Thou/mm3 (0.0-0.5); Eosinophils % (Auto) 2 % (0-10); Hematocrit 26.3 % (36.0-46.0); Immature Granulocytes % (Auto) 2 % (0-0); Immature Granulocytes Auto 0.06 Thou/mm3 (0.00-0.00); Lymphocytes % (Auto) 27 % (10-50); Mean Corpuscular HGB Conc 31.9 g/dl (31.0-37.0); Mean Corpuscular Hemoglobin 31.1 pg (25.0-35.0); Mean Corpuscular Volume 97 fL (80-100); Monocytes # (Auto) 0.4 Thou/mm3 (0.0-0.8); Monocytes % (Auto) 11 % (0-12); Neutrophils # (Auto) 2.1 Thou/mm3 (1.8-7.7); Neutrophils % (Auto) 58 % (37-80); Nucleated Red Blood Cell % 0 /100 WBC (0); Platelet Count 197 Thou/mm3 (140-440); RDW Standard Deviation 47.7 fL (36.4-46.3); White Blood Count 3.6 Thou/mm3 (3.6-11.0)
[2024-12-10 09:37] LABS: Hemoglobin 8.4 g/dL (12.0-16.0)
[2024-12-10 09:57] LABS: Alanine Aminotransferase 55 U/L (10-49); Albumin, Serum 3.8 gm/dL (3.4-4.8); Albumin/Globulin Ratio 1.7 (1.2-2.2); Alkaline Phosphatase 66 U/L (46-116); Anion Gap 11 (7-16); Aspartate Amino Transferase 62 U/L (0-34); BUN/Creatinine Ratio 10 Ratio (12-20); Bilirubin,Total 0.2 mg/dL (0.3-1.2); Blood Urea Nitrogen 18 mg/dL (9-23); Calcium 7.9 mg/dL (8.3-10.6); Calcium (Corrected) 8.1 mg/dL (8.5-10.1); Carbon Dioxide 19.8 mMol/L (20.0-31.0); Chloride 108 mMol/L (98-107); Creatinine (Component) 1.8 mg/dL (0.6-1.3); Estimated Creatinine Clearance 27.8 mL/min (>60); Globulin 2.3 gm/dL (2.3-3.5); Glucose 136 mg/dL (74-106); Magnesium 1.2 mg/dL (1.6-2.6); Osmolality,Calculated 281 (275-295); Phosphorous 2.9 mg/dL (2.4-5.1); Potassium 2.8 mMol/L (3.4-5.1); Sodium 139 mMol/L (136-145); Total Protein 6.1 gm/dL (5.7-8.2); eGFR 31 See Note
[2024-12-10 10:36] VITALS: BMI 14.0
[2024-12-10] MEDS: POTASSIUM CHLORIDE 20 mEq TABCR 40 MEQ PO ×2 (10:53→13:07)
[2024-12-10] MEDS: Magnesium Sulfate 4 GM Ivpb 4 GM/50 ML BAG IV (10:54)
[2024-12-10] MEDS: POTASSIUM CHL 10 mEq IVPB 10 MEQ/100 ML BAG 100 MEQ IV ×2 (10:54→12:07)
--- NOTE | 2024-12-10 11:37 | ESCONSULT_ITS ---
RE: TRUMAN BYRD : 1960 DATE OF CONSULTATION: 12/10/2024 REFERRING PHYSICIAN: Dr. Cuellar. REASON FOR CONSULTATION: Positive C. diff test. HISTORY OF PRESENT ILLNESS: The patient is an unfortunate 64-year-old who has been on both vancomycin and Dificid for the last several days. Her looser stools have abated. She came in with some significant renal insufficiency, but that has also abated with hydration. She carries a diagnosis of dementia and kicked her out a couple of years ago. He is here at the bedside. He reports that she had some sort of foot surgery for a metatarsal fracture several years ago and tubal ligation about 30 years ago. ALLERGIES: NONE KNOWN. IMMUNIZATIONS: Unknown. FAMILY HISTORY: Unknown. SOCIAL HISTORY: She lives in a senior care currently. They . The patient has a positive C. diff PCR, which was repeated, even though I advised him against that. PHYSICAL EXAMINATION: On exam, the patient has a benign exam. She is a poor historian. Her is a bit better. She had limited bm's thst are grossly benign. She is not in any distress. She does not require oxygen. I do not find any cough or respiratory issues, so the value of antibiotics are low. ASSESSMENT: 1. Presumptive C. diff based on a positive PCR. This is of note, about 5% to 10% of the adult population will be positive by PCR if he uses that test as a diagnostic test. Our lab does use that because we do not test that often, but it is cheaper to have PCR only and not use another screen, but many hospitals use a GDH screen as an indicator because it is reasonably sensitive and they only check PCR if they are equivocal. 2. Dementia, caused in certain recommendations. The patient may deserve further imaging of the head at your discretion and/or other workup including a syphilis test, ammonia level, B12, folate, thyroid studies, etc. as needed if you are worried about reversible causes of dementia. if not, and if you wish to have some discussion about potential limitations of interventions that would be appropriate. She is listed as a full code despite her history of dementia and impairment I will check on her superficially on Tuesday. DT: 09:41:05 TT: 10:59:00 Ref: [id number] - TID: [id number] MTDD
[2024-12-10 12:00] VITALS: BP 106/68; PULSE 88; RESP 18; TEMP 36.7; O2SAT 97
--- NOTE | 2024-12-10 12:02 | PC.SS ---
SS was informed by Dr Garcia that patient will be discharging today, SS contacted Adia from [facility] in regards to discharge, however Adia reported they will not have a female bed available until Tuesday. SS contacted patient's Pro and updated him and he informed SS that second choice would be [facility]. SS contacted Tobi from [facility] and she informed SS they are able to accept patient, however SS would need to contact [facility]. SS contacted Elizabeth from [facility] and she informed SS they would Switch the auth to [facility] and sent auth to Tobi. SS will stand by for further needs.
[2024-12-10] MEDS: SODIUM CHLORIDE 0.9% 1000 ML 1,000 ML 75 ML IV (13:37)
[2024-12-10 15:09] LABS: Anion Gap 9 (7-16); BUN/Creatinine Ratio 10 Ratio (12-20); Blood Urea Nitrogen 16 mg/dL (9-23); Calcium 7.8 mg/dL (8.3-10.6); Carbon Dioxide 20.2 mMol/L (20.0-31.0); Chloride 110 mMol/L (98-107); Creatinine (Component) 1.6 mg/dL (0.6-1.3); Estimated Creatinine Clearance 31.4 mL/min (>60); Glucose 113 mg/dL (74-106); Magnesium 2.6 mg/dL (1.6-2.6); Osmolality,Calculated 279 (275-295); Potassium 3.8 mMol/L (3.4-5.1); Sodium 139 mMol/L (136-145); eGFR 36 See Note
[2024-12-10 15:40] LABS: Cocci Serology, IgG Negative (Negative)
[2024-12-10 16:21] LABS: Clostridium Difficile PCR Negative (Negative)
--- NOTE | 2024-12-10 17:55 | ESPR_ITS ---
<Statement entered by Uyen Luna MD - 12/10/24 19:25> I discussed with and supervised my co-resident involved in the care of this patient. I agree with the assessment and plan as documented above. Patient seen and examined at bedside. She states she is feeling better. Able to use the bathroom on her own. Continues to have diarrhea at least 3x this morning alone. Will continue IVF and electrolyte repletion. Infectious disease consulted, who recommend oral vancomycin with taper. Uyen Luna MD PGY-3 Documentation for date of: 12/10/24 Subjective Subjective Interval history: Patient seen and examined at bedside. No acute events overnight. Patient continues to refuse any physical exam or answer questions properly. Information was taken from nurse who stated that she has had 3?4 loose bowel movements. Dark green color. She continues to get up to use the toilet. Rash is still present on buttocks descending posterior thigh. Potassium this morning was 2.8 and repleted 40+40 mEq. Repeat potassium improved to 3.8. Magnesium 1.2 repleted with 4 g. Repeat improved to 2.6. Per ID recommendations by Dr Garsia p.oJuli Ortega to be tapered. Start at 125mg QID for 10 days--125mg TID x1 weel--125mg BID x1 week--125mg daily x1 week. Then continue with Your yogurt daily for a week. Zosyn and fidaxomicin has been stopped by ID. Anticipate discharge tomorrow if diarrhea improves. Exam Vital Signs Temp Pulse Resp BP Pulse Ox O2 Del Method 98.1 F 88 18 106/68 97 Room Air 12/10/24 12:00 12/10/24 12:00 12/10/24 12:00 12/10/24 12:00 12/10/24 12:12/10/24 12:00 Narrative Exam Constitutional: Appears uncomfortable Eyes: no conjunctival injection , symmetrical lids. Refused rest of physical exam. Objective Labs 12/11/24 05:57 12/11/24 16:10 Labs: Laboratory Results - last 24 hr 12/09/24 12/09/24 12/09/24 07:47 17:02 19:35 WBC RBC Hgb Hct MCV MCH MCHC RDW Std Deviation Plt Count Neut % (Auto) Lymph % (Auto) [place] % (Auto) Eos % (Auto) Baso % (Auto) Neut # (Auto) Lymph # (Auto) [place] # (Auto) Eos # (Auto) Baso # (Auto) Immature Gran # (Auto) Absolute Nucleated RBC Immature Gran % Nucleated RBC % Sodium Potassium Chloride Carbon Dioxide Anion Gap BUN Creatinine Estim Creat Clear Calc eGFR BUN/Creatinine Ratio Glucose Calculated Osmolality Calcium Corrected Calcium Phosphorus Magnesium Total Bilirubin AST ALT Alkaline Phosphatase Total Protein Albumin Globulin Albumin/Globulin Ratio Stool for White Cells Many A Stl C. diff Tox B Gene Negative Coccidioides IgG Ab Negative 12/10/24 12/10/24 12/10/24 05:00 09:24 13:51 WBC 3.6 RBC 2.70 L Hgb 8.4 L Hct 26.3 L MCV 97 MCH 31.1 MCHC 31.9 RDW Std Deviation 47.7 H Plt Count 197 Neut % (Auto) 58 Lymph % (Auto) 27 [place] % (Auto) 11 Eos % (Auto) 2 Baso % (Auto) 0 Neut # (Auto) 2.1 Lymph # (Auto) 1.0 [place] # (Auto) 0.4 Eos # (Auto) 0.1 Baso # (Auto) 0.0 Immature Gran # (Auto) 0.06 H Absolute Nucleated RBC 0.00 Immature Gran % 2 H Nucleated RBC % 0 Sodium 139 139 Potassium 2.8 L D 3.8 D Chloride 108 H 110 H Carbon Dioxide 19.8 L 20.2 Anion Gap 11 9 BUN 18 16 Creatinine 1.8 H 1.6 H Estim Creat Clear Calc 27.8 L 31.4 L eGFR 31 L 36 L BUN/Creatinine Ratio 10 L 10 L Glucose 136 H 113 H Calculated Osmolality 281 279 Calcium 7.9 L 7.8 L Corrected Calcium 8.1 L Phosphorus 2.9 Magnesium 1.2 L 2.6 Total Bilirubin 0.2 L AST 62 H ALT 55 H Alkaline Phosphatase 66 Total Protein 6.1 Albumin 3.8 Globulin 2.3 Albumin/Globulin Ratio 1.7 Stool for White Cells Stl C. diff Tox B Gene Coccidioides IgG Ab ABG Interpretation ABG results: 12/03/24 23:07 VBG pH 7.23 L VBG pCO2 36 VBG pO2 30 VBG Base Excess -11 L Quality Measures Quality Measures VTE prophylaxis Assessment & Plan Assessment Current Active Medications: Generic Name Dose Route Start Last Admin Trade Name Freq PRN Reason Stop Dose Admin Acetaminophen 650 mg 12/07/24 10:55 12/07/24 16:39 Acetaminophen 325 Mg Tablet PO 01/02/25 21:57 650 mg Q6H PRN Administration Fever >100.3 or pain 1-3 Protocol Albuterol/Ipratropium 3 ml 12/03/24 21:58 Albuterol/Ipratropium (Duoneb) Rt Brittany 3 Ml Nebu INH 01/02/25 21:57 Q4HR PRN SHORTNESS OF BREATH OR WHEEZE Heparin Sodium (Porcine) 5,000 unit 12/07/24 21:00 12/10/24 08:58 Heparin Sod Inj 5000 Unit/Ml Vial SC 12/18/24 08:59 5,000 unit Q12HR ERI Administration Sodium Chloride 1,000 mls @ 75 mls/hr 12/10/24 13:17 12/10/24 13:37 Ns IV 12/11/24 15:56 75 mls/hr .[id number] ERI Administration Lactobacillus Rhamnosus 1 cap 12/03/24 23:00 12/10/24 08:56 Lactobacillus Rhamnosus 1 Cap PO 01/02/25 22:59 1 cap BID ERI Administration Memantine 10 mg 12/05/24 21:00 12/10/24 08:58 Memantine Hcl 5 Mg Tablet PO 01/04/25 20:59 10 mg BID ERI Administration Ondansetron HCl 4 mg 12/03/24 21:58 12/08/24 12:53 Ondansetron Inj 2 Mg/Ml Inj 2 Ml IV 01/02/25 21:57 4 mg Q6H PRN Administration NAUSEA OR VOMITING Protocol Vancomycin HCl 125 mg 12/10/24 12:00 12/10/24 17:11 Vancomycin 125 Mg Capsule PO 12/12/24 12:00 125 mg QID ERI Administration Plan Patient is a 64-year-old female poor historian with a medical history of bipolar disorder, primary hypertension, dementia, COPD, chronic constipation, hyperlipidemia, chronic pain, 1 episode of previous seizure-like activity who presented to [facility] emergency department on 12/03/2024 with chief complaint of generalized weakness and proctalgia. Patient will be admitted for treatment and management of severe MAYELIN secondary to dehydration and poor oral intake. Sepsis-resolved Ddx: UTI, C diff, abscess, fistula Patient with fevers and tachycardia all day on 12/07. Known infectious causes include UTI which we were treating well ceftriaxone and C. difficile with p.o. Vanco, status post 10-day course. Source still unclear. Pt is now on broad spectrum antibiotics including Zosyn and p.o. fidaxomycin for C. difficile Denies any pain. Exam is benign. She continues to have multiple bouts of diarrhea daily. Negative for COVID and flu. Chest x-ray shows possible bronchitis. Blood cultures negative at 24 hours. UA culture pending. CT abdomen pelvis from 12/07 does not reveal fistula or abscess Plan: ?stop Zosyn (12/07?12/10) ?stop. fidaxomicin (12/07-12/10) MAYELIN-improving right Renal cyst Most likely prerenal in setting of dehydration, decreased oral intake, diarrhea. However BUN/creatinine ratio 120 indicating otherwise. May be due to aggressive hypoperfusion to kidneys. Patient also does have renal cyst. -maintenance fluids -avoid nephrotoxic agents -daily CMP -Monitor I and Os -Follow up outpatient for further imaging and management of renal cyst Hypokalemia Hypomagnesemia Anion gap metabolic acidosis-resolved Hypocalcemia Diarrhea 2/ C. difficile infection Patient presented with hypotension and generalized weakness. Patient previously hospitalized from 11/25 - 11/30 for treatment of severe MAYELIN secondary to diarrhea from C. difficile infection. She was discharged home on vancomycin p.o. On admission BUN 109, CR 14.3, bicarb 10.2, corrected calcium 8 and anion gap 23 Patient's MAYELIN most likely prerenal due to poor oral intake and continued diarrhea, albeit improving. CT abdomen and pelvis from 12/04 shows 40 mm right renal cyst, colonic ileus, thickening of the urinary bladder wall and mildly distended gallbladder. Kidney ultrasound on 12/04 recommending elective MRI abdomen kidneys follow-up, pre and postcontrast, to confirm solid mass upper pole right kidney 2.7 x 2.0 x 1.7 cm?this can be done as outpatien Plan: ? ID Dr. Garsia consulted -Per ID recs, will taper vanco -Start at 125mg QID for 10 days--125mg TID x1 weel--125mg BID x1 week--125mg daily x1 week. Then continue with Your yogurt daily for a week. -Zosyn and fidaxomicin has been stopped by ID. -Regular diet ? Strict I's and O's ? Encourage oral intake - Discontinued home medication pantoprazole as this can worsen C. difficile infection. Please also discontinue on discharge. ? Lactate Ringer's at 125 cc/h ? financial services counselor referral:disposition likely SNF for PT and daily living care as patient has dementia ? Nephrology, Dr York consulted and closely following the case. Does not recommend dialysis. Patient still with good urine output. Normocytic anemia -Will continue to monitor Essential hypertension COPD Hyperlipidemia Home medication simvastatin 10 Mg p.o. (substituting with atorvastatin in hospital) Stiolto Respimat 2 puffs daily Plan: ? Antihypertensives on hold due to hypotension ? DuoNebs Q4 hourly as needed Dementia Chronic constipation Fibromyalgia Home medication pregabalin 100 Mg p.o. daily and memantine 10 Mg p.o. twice daily Plan: ? Held home medication memantine as this may possibly cause acidosis. ? continue pregabalin 100 Mg p.o. daily Health maintenance: Disposition: Treatment of C. difficile and sepsis Diet: Regular Lines: pIVs GI Prophylaxis: Contraindicated Thrombo Prophylaxis: Heparin 5000U sc BID Code status: FULL CODE Patient was evaluated and discussed with my attending Dr. Prather and senior Dr. Luna. Vicenta Matute, PGY1 Attending Provider Attestation/Addendum Face to face evaluation was performed by me. I have personally seen and examined the patient. I discussed the assessment and plan with the entire medicine team. I reviewed available medical records, imaging studies, laboratory results. I agree with the above subjective data, objective findings, assessment and plan except as corrected by me or noted below C DIff diarrhea with colitis, recurrent Electorlyte abnormalities with hypoaklemia and hypomagnesemia Dehydration - still having multiple loose stools po vancomycin ,ID consulted, taper per ID recs, agree with discontinuation of Zosyn and fedoximycin replace electrolytes placmeent SNF
[2024-12-10 20:00] VITALS: BP 109/71; PULSE 99; RESP 23; TEMP 36.2; O2SAT 100
--- NOTE | 2024-12-10 23:13 | ESPR_ITS ---
RE: TRUMAN BYRD : 1960 DATE OF SERVICE: 12/10/2024 HISTORY OF PRESENT ILLNESS: Briefly, she is a 64-year-old woman with hypertension, seizure disorder, bipolar disorder, dementia, history of SVT, status post cardioversion who presented to the emergency room with diarrhea and vomiting secondary to C. diff colitis and was found to have an elevated creatinine level of 10.3, BUN of 109, and CO2 of 10.2. The patient was aggressively hydrated with lactated Ringer's solution and creatinine started to improve from 10.3 to 1.6 today. The patient continues to have on and off diarrhea and she is currently on vancomycin 125 mg p.o. every 6.and Fidaxomicin The patient is currently on both vancomycin and fidaxomicin. The patient is also on Zosyn. CURRENT MEDICATIONS: 1. Acetaminophen 2. Heparin 4000 units subcutaneously q.12 5. Lactobacillus 6. Magnesium 7. Sodium chloride 75 mL per hour 8. Ondansetron. 9. Potassium 10. Vancomycin 125 mg p.o. q.i.d. 11. Namenda 10 mg b.i.d. PHYSICAL EXAMINATION: General: Awake, but confused. Vital Signs: Blood pressure of 109/71. Heart rate of 99. Respiratory rate of 22. HEENT: Anicteric sclerae. Normocephalic. Neck: Supple. No JVD. Chest and Lungs: Symmetrical expansion. Clear breath sounds. Cardiac: Without murmur. Abdomen: Soft and nontender. Extremities: No edema. LABORATORY DATA: Hemoglobin 8.4, WBC 3600, plate 197,000. Sodium 139 and potassium 3.8, chloride 110, CO2 of 20.2, BUN 16, creatinine 1.6, glucose 113. ASSESSMENT: 1. Acute kidney injury and chronic kidney disease, nonoliguric, and improving. 2. Metabolic acidosis secondary to diarrhea, now improved. 3. History of C. difficile, on oral vancomycin 125 mg q.i.d. 4. Hypotension secondary to diarrhea. 5. History of bipolar disorder. PLAN: Continue vancomycin 125 mg q.i.d.and Fidaxomicin. Continue monitoring urine output, kidney function and electrolytes on a daily basis and correct deficiency as needed. DT: 22:38:50 TT: 23:11:00 Ref: [id number] - TID: [id number] MTDD
--- NOTE | 2024-12-10 23:53 | PD.NEUROPROG ---
Documentation for date of: 12/10/24 Subjective Subjective Interval history: Ms. Cox seen in telemetry today. No new symptoms or concerns reported. Exam - Neurology Vital Signs Temp Pulse Resp BP Pulse Ox O2 Del Method 97.1 F 99 23 H 109/71 100 Room Air 12/10/24 20:00 12/10/24 20:00 12/10/24 20:00 12/10/24 20:00 12/10/24 20:00 12/10/24 20:00 Narrative Exam GENERAL APPEARANCE: Well hydrated, well-nourished in no acute distress. HEENT: Normocephalic, atraumatic, extraocular movements intact. Pupils: Equal reacting to light and accommodation NECK: Supple, no JVD or bruits. CARDIOVASULAR: Heart: S1, S2 heard, regular without S3-S4 or murmur no rubs or gallops. LUNGS/CHEST: Clear to auscultation bilaterally. No rails, rhonchi, or wheezing. Normal inspection. ABDOMEN: Soft, nontender, with normal bowel sounds. No pulsatile masses. No rebound, rigidity, or guarding. Normal inspection and palpation. EXTREMITIES: Normal inspection and palpation. No edema, clubbing or cyanosis. SKIN: Warm and dry without rashes. Normal inspection. MUSCULOSKELETAL: No cervical, thoracic, lumbar or midline bony tenderness. Normal inspection. NEURO: Alert, awake and oriented x3. Cranial nerves: II through XII grossly intact. Speech and language: Normal with no dysarthria or dysphasia. Motor system: Tone and bulk: Normal: Strength: 5 out of 5 in all 4 extremities; No pronator drift noted. Deep tendon reflexes: 2+ bilaterally symmetrical. Plantar reflex: Downgoing bilaterally. Sensory system: Intact to all modalities of sensation bilaterally. Coordination: Intact to [id number] and [id number]-[id number] test bilaterally. No ataxia, no dysmetria, or dysdiadochokinesia noted. No intention tremors noted. Gait: Not tested. No signs of meningeal irritation noted. PSYCHIATRIC: Normal mood and affect. Objective Labs 12/10/24 05:00 12/10/24 13:51 Labs: Laboratory Results - last 24 hr 12/09/24 12/09/24 12/10/24 07:47 19:35 05:00 WBC 3.6 RBC 2.70 L Hgb 8.4 L Hct 26.3 L MCV 97 MCH 31.1 MCHC 31.9 RDW Std Deviation 47.7 H Plt Count 197 Neut % (Auto) 58 Lymph % (Auto) 27 [place] % (Auto) 11 Eos % (Auto) 2 Baso % (Auto) 0 Neut # (Auto) 2.1 Lymph # (Auto) 1.0 [place] # (Auto) 0.4 Eos # (Auto) 0.1 Baso # (Auto) 0.0 Immature Gran # (Auto) 0.06 H Absolute Nucleated RBC 0.00 Immature Gran % 2 H Nucleated RBC % 0 Sodium Potassium Chloride Carbon Dioxide Anion Gap BUN Creatinine Estim Creat Clear Calc eGFR BUN/Creatinine Ratio Glucose Calculated Osmolality Calcium Corrected Calcium Phosphorus Magnesium Total Bilirubin AST ALT Alkaline Phosphatase Total Protein Albumin Globulin Albumin/Globulin Ratio Stl C. diff Tox B Gene Negative Coccidioides IgG Ab Negative 12/10/24 12/10/24 09:24 13:51 WBC RBC Hgb Hct MCV MCH MCHC RDW Std Deviation Plt Count Neut % (Auto) Lymph % (Auto) [place] % (Auto) Eos % (Auto) Baso % (Auto) Neut # (Auto) Lymph # (Auto) [place] # (Auto) Eos # (Auto) Baso # (Auto) Immature Gran # (Auto) Absolute Nucleated RBC Immature Gran % Nucleated RBC % Sodium 139 139 Potassium 2.8 L D 3.8 D Chloride 108 H 110 H Carbon Dioxide 19.8 L 20.2 Anion Gap 11 9 BUN 18 16 Creatinine 1.8 H 1.6 H Estim Creat Clear Calc 27.8 L 31.4 L eGFR 31 L 36 L BUN/Creatinine Ratio 10 L 10 L Glucose 136 H 113 H Calculated Osmolality 281 279 Calcium 7.9 L 7.8 L Corrected Calcium 8.1 L Phosphorus 2.9 Magnesium 1.2 L 2.6 Total Bilirubin 0.2 L AST 62 H ALT 55 H Alkaline Phosphatase 66 Total Protein 6.1 Albumin 3.8 Globulin 2.3 Albumin/Globulin Ratio 1.7 Stl C. diff Tox B Gene Coccidioides IgG Ab ABG Interpretation ABG results: 12/03/24 23:07 VBG pH 7.23 L VBG pCO2 36 VBG pO2 30 VBG Base Excess -11 L Assessment & Plan Assessment and plan (1) Acute renal failure: Status: Acute Assessment and plan: Improving with IV hydration (2) Clostridium difficile infection: Status: Acute Assessment and plan: On vancomycin and Rocephin (3) Dementia: Status: Chronic Assessment and plan: Stable on memantine, resume (4) Hypertension: Status: Acute Assessment and plan: Continue with the carvedilol (5) Seizure: Status: Chronic Assessment and plan: Recent workup is negative for seizures. Continue with the pregabalin anyway for dual benefits
[2024-12-11] VITALS (8 sets, daily range): BP systolic 108–152; BP diastolic 60–78; PULSE 80–103; RESP 16–23; TEMP 36.2–36.6; O2SAT 93–100; BMI 23.2; BMI 26.9
[2024-12-11] MEDS: ONDANSETRON INJ 2 MG/ML INJ 2 ML 4 MG IV (01:01)
[2024-12-11 06:22] LABS: Basophils % (Auto) 0 % (0-2.5); Eosinophils # (Auto) 0.1 Thou/mm3 (0.0-0.5); Eosinophils % (Auto) 1 % (0-10); Hematocrit 26.9 % (36.0-46.0); Immature Granulocytes % (Auto) 1 % (0-0); Immature Granulocytes Auto 0.05 Thou/mm3 (0.00-0.00); Lymphocytes # (Auto) 1.2 Thou/mm3 (1.0-4.8); Lymphocytes % (Auto) 24 % (10-50); Mean Corpuscular Hemoglobin 31.3 pg (25.0-35.0); Mean Corpuscular Volume 98 fL (80-100); Monocytes # (Auto) 0.4 Thou/mm3 (0.0-0.8); Monocytes % (Auto) 8 % (0-12); Neutrophils # (Auto) 3.2 Thou/mm3 (1.8-7.7); Neutrophils % (Auto) 65 % (37-80); Nucleated Red Blood Cell % 0 /100 WBC (0); Platelet Count 233 Thou/mm3 (140-440); RDW Standard Deviation 47.1 fL (36.4-46.3); Red Blood Count 2.75 Miln/mm3 (4.00-5.20); White Blood Count 4.9 Thou/mm3 (3.6-11.0)
[2024-12-11 06:23] LABS: Ammonia 30 uMol/L (11-32)
[2024-12-11 06:24] LABS: Hemoglobin 8.6 g/dL (12.0-16.0)
[2024-12-11 06:43] LABS: Alanine Aminotransferase 82 U/L (10-49); Albumin, Serum 3.9 gm/dL (3.4-4.8); Albumin/Globulin Ratio 1.8 (1.2-2.2); Alkaline Phosphatase 71 U/L (46-116); Anion Gap 10 (7-16); Aspartate Amino Transferase 81 U/L (0-34); BUN/Creatinine Ratio 11 Ratio (12-20); Bilirubin,Total 0.2 mg/dL (0.3-1.2); Blood Urea Nitrogen 16 mg/dL (9-23); Calcium 7.9 mg/dL (8.3-10.6); Carbon Dioxide 15.2 mMol/L (20.0-31.0); Chloride 116 mMol/L (98-107); Creatinine (Component) 1.4 mg/dL (0.6-1.3); Estimated Creatinine Clearance 32.5 mL/min (>60); Globulin 2.2 gm/dL (2.3-3.5); Glucose 98 mg/dL (74-106); Osmolality,Calculated 282 (275-295); Potassium 3.9 mMol/L (3.4-5.1); Sodium 141 mMol/L (136-145); Thyroid Stimulating Hormone 1.28 uIU/mL (0.55-4.78); Total Protein 6.1 gm/dL (5.7-8.2); eGFR 42 See Note
[2024-12-11] MEDS: SODIUM CHLORIDE 0.9% 1000 ML 1,000 ML 75 ML IV (06:47)
[2024-12-11 06:53] LABS: Folate 13.25 ng/mL (>5.38); Vitamin B12 559 pg/mL (211-911)
[2024-12-11] MEDS: VANCOMYCIN 125 MG CAPSULE PO ×4 (06:55→20:16)
[2024-12-11 07:00] LABS: Syphilis Nonreactive (Nonreactive)
[2024-12-11] MEDS: HEPARIN SOD INJ 5000 UNIT/ML VIAL SC ×2 (08:55→20:16)
[2024-12-11] MEDS: MEMANTINE HCL 5 MG TABLET 10 MG PO ×2 (09:04→20:16)
[2024-12-11] MEDS: LACTOBACILLUS RHAMNOSUS 1 CAP PO ×2 (09:04→20:16)
--- NOTE | 2024-12-11 15:09 | PC.SS ---
SS follow up note; Patient will not discharge today, patient is having diarrhea. SS canceled transportation and contacted [facility]. SS updated Tobi from [employer].
--- NOTE | 2024-12-11 15:23 | ESPR_ITS ---
<Statement entered by Uyen Luna MD - 12/11/24 16:04> Patient seen and examined at bedside. Patient complains of nausea and poor appetite. Continues to have multiple episodes of watery diarrhea - 6 episodes overnight. Continuing oral vancomycin with long taper. Chemistry panel shows NAGMA, suspect HCO3 loss in diarrhea. Will get repeat chemisty panel and follow up with machine cell tuber Dr. York if recommend bicarb. MAYELIN improving. Anticipate discharge back to SNF once diarrhea improves. Uyen Luna MD PGY-3 Documentation for date of: 12/11/24 Subjective Subjective Interval history: Patient seen and examined at bedside. No acute events overnight. Per nursing, she continues to have watery diarrhea. Unable to assess posterior rash. Dietary team was consulted to start patient on Banatrol fiber supplement. Need to monitor bowel movements encouraging increased oral intake. Labs reveal improving MAYELIN. Electrolytes improved this morning since yesterdays repletion potassium and magnesium. However today CMP shows NAGMA with bicarb 15. Follow up with repeat CMP. If not imporving, will contact Dr. York for recs. Possible bicarb repletion. Dissipate discharge tomorrow if diarrhea episodes improved. Exam Vital Signs Temp Pulse Resp BP Pulse Ox O2 Del Method 97.5 F 91 16 119/76 97 Room Air 12/11/24 12:00 12/11/24 12:00 12/11/24 12:00 12/11/24 12:00 12/11/24 12:00 12/11/24 12:00 Narrative Exam Constitutional: Appears uncomfortable Eyes: no conjunctival injection , symmetrical lids. Refused rest of physical exam. Objective Labs 12/11/24 05:57 12/11/24 16:10 Labs: Laboratory Results - last 24 hr 12/09/24 12/09/24 12/11/24 07:47 19:35 05:57 WBC 4.9 RBC 2.75 L Hgb 8.6 L Hct 26.9 L MCV 98 MCH 31.3 MCHC 32.0 RDW Std Deviation 47.1 H Plt Count 233 D Neut % (Auto) 65 Lymph % (Auto) 24 [place] % (Auto) 8 Eos % (Auto) 1 Baso % (Auto) 0 Neut # (Auto) 3.2 Lymph # (Auto) 1.2 [place] # (Auto) 0.4 Eos # (Auto) 0.1 Baso # (Auto) 0.0 Immature Gran # (Auto) 0.05 H Absolute Nucleated RBC 0.00 Immature Gran % 1 H Nucleated RBC % 0 Sodium 141 Potassium 3.9 Chloride 116 H Carbon Dioxide 15.2 L Anion Gap 10 BUN 16 Creatinine 1.4 H Estim Creat Clear Calc 32.5 L eGFR 42 L BUN/Creatinine Ratio 11 L Glucose 98 Calculated Osmolality 282 Calcium 7.9 L Corrected Calcium 8.0 L Total Bilirubin 0.2 L AST 81 H ALT 82 H Alkaline Phosphatase 71 Ammonia 30 Total Protein 6.1 Albumin 3.9 Globulin 2.2 L Albumin/Globulin Ratio 1.8 Vitamin B12 559 Folate 13.25 TSH 1.28 Stl C. diff Tox B Gene Negative Syphilis Serology Nonreactive Coccidioides IgG Ab Negative ABG Interpretation ABG results: 12/03/24 23:07 VBG pH 7.23 L VBG pCO2 36 VBG pO2 30 VBG Base Excess -11 L Quality Measures Quality Measures VTE prophylaxis Assessment & Plan Assessment Current Active Medications: Generic Name Dose Route Start Last Admin Trade Name Freq PRN Reason Stop Dose Admin Acetaminophen 650 mg 12/07/24 10:55 12/07/24 16:39 Acetaminophen 325 Mg Tablet PO 01/02/25 21:57 650 mg Q6H PRN Administration Fever >100.3 or pain 1-3 Protocol Albuterol/Ipratropium 3 ml 12/03/24 21:58 Albuterol/Ipratropium (Duoneb) Rt Brittany 3 Ml Nebu INH 01/02/25 21:57 Q4HR PRN SHORTNESS OF BREATH OR WHEEZE Heparin Sodium (Porcine) 5,000 unit 12/07/24 21:00 12/11/24 08:55 Heparin Sod Inj 5000 Unit/Ml Vial SC 12/18/24 08:59 5,000 unit Q12HR ERI Administration Sodium Chloride 1,000 mls @ 75 mls/hr 12/10/24 13:17 12/11/24 06:47 Ns IV 12/11/24 15:56 75 mls/hr .[id number] ERI Administration Lactobacillus Rhamnosus 1 cap 12/03/24 23:00 12/11/24 09:04 Lactobacillus Rhamnosus 1 Cap PO 01/02/25 22:59 1 cap BID ERI Administration Memantine 10 mg 12/05/24 21:00 12/11/24 09:04 Memantine Hcl 5 Mg Tablet PO 01/04/25 20:59 10 mg BID ERI Administration Ondansetron HCl 4 mg 12/03/24 21:58 12/11/24 01:01 Ondansetron Inj 2 Mg/Ml Inj 2 Ml IV 01/02/25 21:57 4 mg Q6H PRN Administration NAUSEA OR VOMITING Protocol Vancomycin HCl 125 mg 12/10/24 12:00 12/11/24 12:36 Vancomycin 125 Mg Capsule PO 12/12/24 12:00 125 mg QID ERI Administration Plan Patient is a 64-year-old female poor historian with a medical history of bipolar disorder, primary hypertension, dementia, COPD, chronic constipation, hyperlipidemia, chronic pain, 1 episode of previous seizure-like activity who presented to [facility] emergency department on 12/03/2024 with chief complaint of generalized weakness and proctalgia. Patient will be admitted for treatment and management of severe MAYELIN secondary to dehydration and poor oral intake. #Sepsis-resolved Ddx: UTI, C diff, abscess, fistula Patient with fevers and tachycardia all day on 12/07. Known infectious causes include UTI which we were treating well ceftriaxone and C. difficile with p.o. Vanco, status post 10-day course. Source still unclear. Pt is now on broad spectrum antibiotics including Zosyn and p.o. fidaxomycin for C. difficile Denies any pain. Exam is benign. She continues to have multiple bouts of diarrhea daily. Negative for COVID and flu. Chest x-ray shows possible bronchitis. Blood cultures negative at 24 hours. UA culture pending. CT abdomen pelvis from 12/07 does not reveal fistula or abscess Plan: ?stopped Zosyn (12/07?2/3) ?stopped fidaxomicin (12/07-12/10) #MAYELIN-improving #right Renal cyst Most likely prerenal in setting of dehydration, decreased oral intake, diarrhea. However BUN/creatinine ratio 120 indicating otherwise. May be due to aggressive hypoperfusion to kidneys. Patient also does have renal cyst. -maintenance fluids -avoid nephrotoxic agents -daily CMP -Monitor I and Os -Follow up outpatient for further imaging and management of renal cyst #Hypokalemia #Hypomagnesemia #Anion gap metabolic acidosis #Hypocalcemia #Diarrhea 2/2 C. difficile infection Patient presented with hypotension and generalized weakness. Patient previously hospitalized from 11/25 - 11/30 for treatment of severe MAYELIN secondary to diarrhea from C. difficile infection. She was discharged home on vancomycin p.o. On admission BUN 109, CR 14.3, bicarb 10.2, corrected calcium 8 and anion gap 23 Patient's MAYELIN most likely prerenal due to poor oral intake and continued diarrhea, albeit improving. CT abdomen and pelvis from 12/04 shows 40 mm right renal cyst, colonic ileus, thickening of the urinary bladder wall and mildly distended gallbladder. Kidney ultrasound on 12/04 recommending elective MRI abdomen kidneys follow-up, pre and postcontrast, to confirm solid mass upper pole right kidney 2.7 x 2.0 x 1.7 cm?this can be done as outpatien Zosyn and fidaxomicin has been stopped by ID. Discontinued home medication pantoprazole as this can worsen C. difficile infection. Will d/c on discharge. Plan: ? ID Dr. Garsia consulted -Per ID recs, will taper vanco -Start at 125mg QID for 10 days--125mg TID x1 weel--125mg BID x1 week--125mg daily x1 week. Then continue with Your yogurt daily for a week. -Regular diet ? Strict I's and O's ? Encourage oral intake ? Lactate Ringer's at 125 cc/h ? media services specialist referral:disposition likely SNF for PT and daily living care as patient has dementia ? Nephrology, Dr York consulted and closely following the case. Does not recommend dialysis. Patient still with good urine output. -start Banatrol fiber supplement #Normocytic anemia -Will continue to monitor -transfuse if Hb <7 #Essential hypertension #COPD #Hyperlipidemia Home medication simvastatin 10 Mg p.o. (substituting with atorvastatin in hospital) Stiolto Respimat 2 puffs daily Plan: ? Antihypertensives on hold due to hypotension ? DuoNebs Q4 hourly as needed #Dementia #Chronic constipation #Fibromyalgia Home medication pregabalin 100 Mg p.o. daily and memantine 10 Mg p.o. twice daily Plan: ? Held home medication memantine as this may possibly cause acidosis. ? continue pregabalin 100 Mg p.o. daily Health maintenance: Disposition: Treatment of C. difficile and sepsis Diet: Regular Lines: pIVs GI Prophylaxis: Contraindicated Thrombo Prophylaxis: Heparin 5000U sc BID Code status: FULL CODE Patient was evaluated and discussed with my attending Dr. Prather and senior Dr. Luna. Vicenta Matute, PGY1 Attending Provider Attestation/Addendum Face to face evaluation was performed by me. I have personally seen and examined the patient. I discussed the assessment and plan with the entire medicine team. I reviewed available medical records, imaging studies, laboratory results. I agree with the above subjective data, objective findings, assessment and plan except as corrected by me or noted below C DIff diarrhea with colitis, recurrent Electorlyte abnormalities with hypoaklemia and hypomagnesemia Dehydration - still having loose stools- 6 overnight, at least 2 since am until we rounded, iv hydration, po vancomycin ,ID consulted, taper per ID recs, agree with discontinuation of Zosyn and fedoximycin replace electrolytes placement SNF- once bowel movements less - on iv fluids, high risk for dehydration and significant hypoKa and hypoMg monitor closely. Stop PPI
[2024-12-11 16:47] LABS: Alanine Aminotransferase 124 U/L (10-49); Albumin, Serum 3.7 gm/dL (3.4-4.8); Albumin/Globulin Ratio 1.7 (1.2-2.2); Alkaline Phosphatase 73 U/L (46-116); Anion Gap 10 (7-16); Aspartate Amino Transferase 109 U/L (0-34); BUN/Creatinine Ratio 10 Ratio (12-20); Bilirubin,Total 0.2 mg/dL (0.3-1.2); Blood Urea Nitrogen 12 mg/dL (9-23); Calcium 7.7 mg/dL (8.3-10.6); Calcium (Corrected) 7.9 mg/dL (8.5-10.1); Carbon Dioxide 15.7 mMol/L (20.0-31.0); Chloride 114 mMol/L (98-107); Creatinine (Component) 1.2 mg/dL (0.6-1.3); Estimated Creatinine Clearance 43.7 mL/min (>60); Globulin 2.2 gm/dL (2.3-3.5); Glucose 85 mg/dL (74-106); Osmolality,Calculated 278 (275-295); Potassium 3.6 mMol/L (3.4-5.1); Sodium 140 mMol/L (136-145); Total Protein 5.9 gm/dL (5.7-8.2); eGFR 51 See Note
--- NOTE | 2024-12-11 23:50 | PD.NEUROPROG ---
Documentation for date of: 12/11/24 Subjective Subjective Interval history: Ms. Cox seen in telemetry today. No new symptoms or concerns reported. Exam - Neurology Vital Signs Temp Pulse Resp BP Pulse Ox O2 Del Method 97.8 F 92 16 134/78 H 98 Room Air 12/11/24 19:59 12/11/24 19:59 12/11/24 19:59 12/11/24 19:59 12/11/24 19:59 12/11/24 19:59 Narrative Exam GENERAL APPEARANCE: Well hydrated, well-nourished in no acute distress. HEENT: Normocephalic, atraumatic, extraocular movements intact. Pupils: Equal reacting to light and accommodation NECK: Supple, no JVD or bruits. CARDIOVASULAR: Heart: S1, S2 heard, regular without S3-S4 or murmur no rubs or gallops. LUNGS/CHEST: Clear to auscultation bilaterally. No rails, rhonchi, or wheezing. Normal inspection. ABDOMEN: Soft, nontender, with normal bowel sounds. No pulsatile masses. No rebound, rigidity, or guarding. Normal inspection and palpation. EXTREMITIES: Normal inspection and palpation. No edema, clubbing or cyanosis. SKIN: Warm and dry without rashes. Normal inspection. MUSCULOSKELETAL: No cervical, thoracic, lumbar or midline bony tenderness. Normal inspection. NEURO: Alert, awake and oriented x3. Cranial nerves: II through XII grossly intact. Speech and language: Normal with no dysarthria or dysphasia. Motor system: Tone and bulk: Normal: Strength: 5 out of 5 in all 4 extremities; No pronator drift noted. Deep tendon reflexes: 2+ bilaterally symmetrical. Plantar reflex: Downgoing bilaterally. Sensory system: Intact to all modalities of sensation bilaterally. Coordination: Intact to [id number]-[id number]-[id number] and pjam-btad-ukqw test bilaterally. No ataxia, no dysmetria, or dysdiadochokinesia noted. No intention tremors noted. Gait: Not tested. No signs of meningeal irritation noted. PSYCHIATRIC: Normal mood and affect. Objective Labs 12/11/24 05:57 12/11/24 16:10 Labs: Laboratory Results - last 24 hr 12/11/24 12/11/24 05:57 16:10 WBC 4.9 RBC 2.75 L Hgb 8.6 L Hct 26.9 L MCV 98 MCH 31.3 MCHC 32.0 RDW Std Deviation 47.1 H Plt Count 233 D Neut % (Auto) 65 Lymph % (Auto) 24 [place] % (Auto) 8 Eos % (Auto) 1 Baso % (Auto) 0 Neut # (Auto) 3.2 Lymph # (Auto) 1.2 [place] # (Auto) 0.4 Eos # (Auto) 0.1 Baso # (Auto) 0.0 Immature Gran # (Auto) 0.05 H Absolute Nucleated RBC 0.00 Immature Gran % 1 H Nucleated RBC % 0 Sodium 141 140 Potassium 3.9 3.6 Chloride 116 H 114 H Carbon Dioxide 15.2 L 15.7 L Anion Gap 10 10 BUN 16 12 Creatinine 1.4 H 1.2 Estim Creat Clear Calc 32.5 L 43.7 L eGFR 42 L 51 L BUN/Creatinine Ratio 11 L 10 L Glucose 98 85 Calculated Osmolality 282 278 Calcium 7.9 L 7.7 L Corrected Calcium 8.0 L 7.9 L Total Bilirubin 0.2 L 0.2 L AST 81 H 109 H ALT 82 H 124 H Alkaline Phosphatase 71 73 Ammonia 30 Total Protein 6.1 5.9 Albumin 3.9 3.7 Globulin 2.2 L 2.2 L Albumin/Globulin Ratio 1.8 1.7 Vitamin B12 559 Folate 13.25 TSH 1.28 Syphilis Serology Nonreactive ABG Interpretation ABG results: 12/03/24 23:07 VBG pH 7.23 L VBG pCO2 36 VBG pO2 30 VBG Base Excess -11 L Assessment & Plan Assessment and plan (1) Acute renal failure: Status: Acute Assessment and plan: Improving with IV hydration (2) Clostridium difficile infection: Status: Acute Assessment and plan: On vancomycin PO, Fidaxomicin (3) Dementia: Status: Chronic Assessment and plan: Stable on memantine, resume (4) Hypertension: Status: Acute Assessment and plan: Continue with the carvedilol (5) Seizure: Status: Chronic Assessment and plan: Recent workup is negative for seizures. Continue with the pregabalin anyway for dual benefits
[2024-12-12] VITALS (8 sets, daily range): BP systolic 125–136; BP diastolic 74–88; PULSE 88–104; RESP 17–21; TEMP 36.2–37.2; O2SAT 91–98; BMI 26.9
[2024-12-12] MEDS: VANCOMYCIN 125 MG CAPSULE PO ×4 (05:20→20:54)
[2024-12-12 06:09] LABS: Basophils % (Auto) 0 % (0-2.5); Eosinophils # (Auto) 0.1 Thou/mm3 (0.0-0.5); Eosinophils % (Auto) 2 % (0-10); Hematocrit 25.5 % (36.0-46.0); Immature Granulocytes % (Auto) 1 % (0-0); Immature Granulocytes Auto 0.04 Thou/mm3 (0.00-0.00); Lymphocytes # (Auto) 1.4 Thou/mm3 (1.0-4.8); Lymphocytes % (Auto) 34 % (10-50); Mean Corpuscular HGB Conc 32.5 g/dl (31.0-37.0); Mean Corpuscular Hemoglobin 31.4 pg (25.0-35.0); Mean Corpuscular Volume 97 fL (80-100); Monocytes # (Auto) 0.4 Thou/mm3 (0.0-0.8); Monocytes % (Auto) 9 % (0-12); Neutrophils # (Auto) 2.2 Thou/mm3 (1.8-7.7); Neutrophils % (Auto) 54 % (37-80); Nucleated Red Blood Cell % 0 /100 WBC (0); Platelet Count 228 Thou/mm3 (140-440); RDW Standard Deviation 46.8 fL (36.4-46.3); Red Blood Count 2.64 Miln/mm3 (4.00-5.20)
[2024-12-12 06:11] LABS: Hemoglobin 8.3 g/dL (12.0-16.0)
[2024-12-12 07:02] LABS: Alanine Aminotransferase 123 U/L (10-49); Albumin, Serum 3.8 gm/dL (3.4-4.8); Albumin/Globulin Ratio 1.7 (1.2-2.2); Alkaline Phosphatase 81 U/L (46-116); Anion Gap 10 (7-16); Aspartate Amino Transferase 81 U/L (0-34); BUN/Creatinine Ratio 9 Ratio (12-20); Bilirubin,Total 0.2 mg/dL (0.3-1.2); Blood Urea Nitrogen 11 mg/dL (9-23); Calcium (Corrected) 8.2 mg/dL (8.5-10.1); Carbon Dioxide 15.9 mMol/L (20.0-31.0); Chloride 116 mMol/L (98-107); Creatinine (Component) 1.2 mg/dL (0.6-1.3); Estimated Creatinine Clearance 43.7 mL/min (>60); Globulin 2.2 gm/dL (2.3-3.5); Glucose 88 mg/dL (74-106); Magnesium 1.4 mg/dL (1.6-2.6); Osmolality,Calculated 281 (275-295); Potassium 3.4 mMol/L (3.4-5.1); Sodium 142 mMol/L (136-145); eGFR 51 See Note
[2024-12-12] MEDS: HEPARIN SOD INJ 5000 UNIT/ML VIAL SC ×2 (08:19→20:54)
[2024-12-12] MEDS: LACTOBACILLUS RHAMNOSUS 1 CAP PO ×2 (08:19→20:53)
[2024-12-12] MEDS: MEMANTINE HCL 5 MG TABLET 10 MG PO ×2 (08:19→20:53)
[2024-12-12] MEDS: POTASSIUM CHLORIDE 20 mEq TABCR 40 MEQ PO (09:59)
[2024-12-12] MEDS: Magnesium Sulfate 4 GM Ivpb 4 GM/50 ML BAG IV (10:35)
--- NOTE | 2024-12-12 10:44 | PC.SS ---
SS attempted to message shelley Cox [phone] in regards to DC plan, no answer. VM left.
--- NOTE | 2024-12-12 10:47 | PC.SS ---
Rounding: Pending correction of electrolytes then DC to SNF
[2024-12-12] MEDS: SODIUM BICARBONATE 650 MG TABLET PO ×2 (11:14→20:54)
--- NOTE | 2024-12-12 12:55 | PD.IDPROG ---
Subjective Subjective Interval history: off all rx. repeat cdiff pcr neg. not advised but interesting Exam Vital Signs Temp Pulse Resp BP Pulse Ox O2 Del Method 97.1 F 98 17 136/87 H 98 Room Air 12/12/24 08:00 12/12/24 08:00 12/12/24 08:00 12/12/24 08:00 12/12/24 08:00 12/12/24 08:00 Narrative Exam odd case, had both dificid and vanco and dificid stopped then vanco stopped by others. and f/u pcr neg. visit limited though Objective - Internal Medicine Labs 12/12/24 05:35 12/12/24 05:35 Labs: Laboratory Results - last 24 hr 12/11/24 12/12/24 16:10 05:35 WBC 4.0 RBC 2.64 L Hgb 8.3 L Hct 25.5 L MCV 97 MCH 31.4 MCHC 32.5 RDW Std Deviation 46.8 H Plt Count 228 Neut % (Auto) 54 Lymph % (Auto) 34 [place] % (Auto) 9 Eos % (Auto) 2 Baso % (Auto) 0 Neut # (Auto) 2.2 Lymph # (Auto) 1.4 [place] # (Auto) 0.4 Eos # (Auto) 0.1 Baso # (Auto) 0.0 Immature Gran # (Auto) 0.04 H Absolute Nucleated RBC 0.00 Immature Gran % 1 H Nucleated RBC % 0 Sodium 140 142 Potassium 3.6 3.4 Chloride 114 H 116 H Carbon Dioxide 15.7 L 15.9 L Anion Gap 10 10 BUN 12 11 Creatinine 1.2 1.2 Estim Creat Clear Calc 43.7 L 43.7 L eGFR 51 L 51 L BUN/Creatinine Ratio 10 L 9 L Glucose 85 88 Calculated Osmolality 278 281 Calcium 7.7 L 8.0 L Corrected Calcium 7.9 L 8.2 L Magnesium 1.4 L Total Bilirubin 0.2 L 0.2 L AST 109 H 81 H ALT 124 H 123 H Alkaline Phosphatase 73 81 Total Protein 5.9 6.0 Albumin 3.7 3.8 Globulin 2.2 L 2.2 L Albumin/Globulin Ratio 1.7 1.7 ABG Interpretation ABG results: 12/03/24 23:07 VBG pH 7.23 L VBG pCO2 36 VBG pO2 30 VBG Base Excess -11 L Assessment & Plan A&P Narrative pos cdiff test, pcr repeat pending there is not data to support use of dificid for acute cdiff over po vanco with a taper. checking for cocci ok if she gets outside favor po vanco with a taper due to cost to hospital. po vanco is 125 qid for 10d then taper is 125 tid for a week then 125 bid for a week, then 125 daily for a week. I usually favor kefir yogurt after that daily for a week stopped the zosyn and the dificid a few days ago extended the po vanco to wed oor for 10d overall for po vanco will check briefly Fri if she remains. if cocci pos, ok to treat empirically with flucon 400/day till data back from [facility] please do not repeat the cdiff test as a test of cure . that is not appropriate. await other tests and overall status. note that pt was quite dehydrated on arrival but wbc/hgb and plts were static and have remained so. you may want to have a goals of care discussion given her hx. she is still listed as a full code . dementia is not currently reversible. I ordered tests to evaluate for reversible causes of dementia for am. all are negative. Nimesh ok to still use a po vanco taper as listed above. we usually do not look at repeating the cdiff as a test of cure so even though test done, favor treatment as above Time Spent With Patient Time: Total time spent is greater than 50% in coordination of care (as documented) at patient's floor/unit and/or counseling patient:
[2024-12-12 13:09] LABS: Base Excess, Venous -9 (-3-3); O2 Saturation, Venous 96 % (96-97); PCO2, Venous 27 mmHg (36-56); PO2, Venous 81 mmHg (15-58); pH, Venous 7.36 (7.33-7.66)
--- NOTE | 2024-12-12 14:37 | ESPR_ITS ---
<Statement entered by Uyen Luna MD - 12/12/24 16:12> I discussed with and supervised my co-resident involved in the care of this patient. I agree with the assessment and plan as documented above. Patient seen and examined at bedside. Diarrhea improving, had 3 episodes overnight and 2 this morning. Stool remains watery. Patient slightly diaphoretic but without specific complaint. No appetite, refusing banatrol. Labs show persistent non-anion gap metabolic acidosis likely due to diarrhea. Suspect diaphoresis, respiratory rate as compensatory mechanism to NAGMA. Started bicarbonate tabs. Will follow up tomorrow and if diarrhea improves, can be discharged to SNF. Uyen Luna MD PGY-3 Documentation for date of: 12/12/24 Subjective Subjective Interval history: Patient seen and examined at bedside. Per nursing, overnight she had 3 loose bowel movements and 2 more in the morning. More pallor this morning with mild diaphoresis. Vitals are stable. She is denying any abdominal pain and has poor appetite. Patient is refusing to take Banatrol fiber. VBG was ordered due to noticeable pursed lip breathing. No acute changes on results. Bicarbonate today was 15. Will start bicarbonate 650BID continue to monitor symptoms. DOUG today 3.4, Mg 1.4. Pleated magnesium 4 g potassium 40+40 mEq. Anticipate discharge to SNF in next 24 hours if diarrhea improves. Exam Vital Signs Temp Pulse Resp BP Pulse Ox O2 Del Method 97.5 F 88 21 H 136/88 H 91 L Room Air 12/12/24 12:00 12/12/24 12:00 12/12/24 12:00 12/12/24 12:00 12/12/24 12:00 12/12/24 12:00 Narrative Exam Constitutional: Appears uncomfortable Eyes: no conjunctival injection , symmetrical lids. Refused rest of physical exam. Objective Labs 12/13/24 04:49 12/13/24 04:49 Labs: Laboratory Results - last 24 hr 12/11/24 12/12/24 12/12/24 16:10 05:35 12:55 WBC 4.0 RBC 2.64 L Hgb 8.3 L Hct 25.5 L MCV 97 MCH 31.4 MCHC 32.5 RDW Std Deviation 46.8 H Plt Count 228 Neut % (Auto) 54 Lymph % (Auto) 34 [place] % (Auto) 9 Eos % (Auto) 2 Baso % (Auto) 0 Neut # (Auto) 2.2 Lymph # (Auto) 1.4 [place] # (Auto) 0.4 Eos # (Auto) 0.1 Baso # (Auto) 0.0 Immature Gran # (Auto) 0.04 H Absolute Nucleated RBC 0.00 Immature Gran % 1 H Nucleated RBC % 0 VBG pH 7.36 VBG pCO2 27 L VBG pO2 81 H VBG O2 Sat (Nathalie) 96 VBG Base Excess -9 L Sodium 140 142 Potassium 3.6 3.4 Chloride 114 H 116 H Carbon Dioxide 15.7 L 15.9 L Anion Gap 10 10 BUN 12 11 Creatinine 1.2 1.2 Estim Creat Clear Calc 43.7 L 43.7 L eGFR 51 L 51 L BUN/Creatinine Ratio 10 L 9 L Glucose 85 88 Calculated Osmolality 278 281 Calcium 7.7 L 8.0 L Corrected Calcium 7.9 L 8.2 L Magnesium 1.4 L Total Bilirubin 0.2 L 0.2 L AST 109 H 81 H ALT 124 H 123 H Alkaline Phosphatase 73 81 Total Protein 5.9 6.0 Albumin 3.7 3.8 Globulin 2.2 L 2.2 L Albumin/Globulin Ratio 1.7 1.7 ABG Interpretation ABG results: 12/03/24 12/12/24 23:07 12:55 VBG pH 7.23 L 7.36 VBG pCO2 36 27 L VBG pO2 30 81 H VBG Base Excess -11 L -9 L Quality Measures Quality Measures VTE prophylaxis Assessment & Plan Assessment Current Active Medications: Generic Name Dose Route Start Last Admin Trade Name Angle PRN Reason Stop Dose Admin Acetaminophen 650 mg 12/07/24 10:55 12/07/24 16:39 Acetaminophen 325 Mg Tablet PO 01/02/25 21:57 650 mg Q6H PRN Administration Fever >100.3 or pain 1-3 Protocol Albuterol/Ipratropium 3 ml 12/03/24 21:58 Albuterol/Ipratropium (Duoneb) Rt Brittany 3 Ml Nebu INH 01/02/25 21:57 Q4HR PRN SHORTNESS OF BREATH OR WHEEZE Heparin Sodium (Porcine) 5,000 unit 12/07/24 21:00 12/12/24 08:19 Heparin Sod Inj 5000 Unit/Ml Vial SC 12/18/24 08:59 5,000 unit Q12HR ERI Administration Lactobacillus Rhamnosus 1 cap 12/03/24 23:00 12/12/24 08:19 Lactobacillus Rhamnosus 1 Cap PO 01/02/25 22:59 1 cap BID ERI Administration Memantine 10 mg 12/05/24 21:00 12/12/24 08:19 Memantine Hcl 5 Mg Tablet PO 01/04/25 20:59 10 mg BID ERI Administration Ondansetron HCl 4 mg 12/03/24 21:58 12/11/24 01:01 Ondansetron Inj 2 Mg/Ml Inj 2 Ml IV 01/02/25 21:57 4 mg Q6H PRN Administration NAUSEA OR VOMITING Protocol Sodium Bicarbonate 650 mg 12/12/24 11:00 12/12/24 11:14 Sodium Bicarbonate 650 Mg Tablet PO 01/11/25 10:59 650 mg BID ERI Administration Plan Patient is a 64-year-old female poor historian with a medical history of bipolar disorder, primary hypertension, dementia, COPD, chronic constipation, hyperlipidemia, chronic pain, 1 episode of previous seizure-like activity who presented to [facility] emergency department on 12/03/2024 with chief complaint of generalized weakness and proctalgia. Patient will be admitted for treatment and management of severe MAYELIN secondary to dehydration and poor oral intake. #Sepsis-resolved Ddx: UTI, C diff, abscess, fistula Patient with fevers and tachycardia all day on 12/07. Known infectious causes include UTI which we were treating well ceftriaxone and C. difficile with p.o. Vanco, status post 10-day course. Source still unclear. Pt is now on broad spectrum antibiotics including Zosyn and p.o. fidaxomycin for C. difficile Denies any pain. Exam is benign. She continues to have multiple bouts of diarrhea daily. Negative for COVID and flu. Chest x-ray shows possible bronchitis. Blood cultures negative at 24 hours. UA culture pending. CT abdomen pelvis from 12/07 does not reveal fistula or abscess Plan: ?stopped Zosyn (12/07?2/) ?stopped fidaxomicin (12/07-12/10) #MAYELIN-improving #right Renal cyst Most likely prerenal in setting of dehydration, decreased oral intake, diarrhea. However BUN/creatinine ratio 120 indicating otherwise. May be due to aggressive hypoperfusion to kidneys. Patient also does have renal cyst. -maintenance fluids -avoid nephrotoxic agents -daily CMP -Monitor I and Os -Follow up outpatient for further imaging and management of renal cyst #Hypokalemia #Hypomagnesemia #Anion gap metabolic acidosis #Hypocalcemia #Diarrhea 2/2 C. difficile infection Patient presented with hypotension and generalized weakness. Patient previously hospitalized from 11/25 - 11/30 for treatment of severe MAYELIN secondary to diarrhea from C. difficile infection. She was discharged home on vancomycin p.o. On admission BUN 109, CR 14.3, bicarb 10.2, corrected calcium 8 and anion gap 23 Patient's MAYELIN most likely prerenal due to poor oral intake and continued diarrhea, albeit improving. CT abdomen and pelvis from 12/04 shows 40 mm right renal cyst, colonic ileus, thickening of the urinary bladder wall and mildly distended gallbladder. Kidney ultrasound on 12/04 recommending elective MRI abdomen kidneys follow-up, pre and postcontrast, to confirm solid mass upper pole right kidney 2.7 x 2.0 x 1.7 cm?this can be done as outpatien Zosyn and fidaxomicin has been stopped by ID. Discontinued home medication pantoprazole as this can worsen C. difficile infection. Will d/c on discharge. Plan: ? ID Dr. Garsia consulted -Per ID recs, will taper vanco -Start at 125mg QID for 10 days--125mg TID x1 weel--125mg BID x1 week--125mg daily x1 week. Then continue with Your yogurt daily for a week. -Regular diet ? Strict I's and O's ? Encourage oral intake ? Lactate Ringer's at 125 cc/h ? branch services manager referral:disposition likely SNF for PT and daily living care as patient has dementia ? Nephrology, Dr York consulted and closely following the case. Does not recommend dialysis. Patient still with good urine output. -start Banatrol fiber supplement #Normocytic anemia -Will continue to monitor -transfuse if Hb <7 #Essential hypertension #COPD #Hyperlipidemia Home medication simvastatin 10 Mg p.o. (substituting with atorvastatin in hospital) Stiolto Respimat 2 puffs daily Plan: ? Antihypertensives on hold due to hypotension ? DuoNebs Q4 hourly as needed #Dementia #Chronic constipation #Fibromyalgia Home medication pregabalin 100 Mg p.o. daily and memantine 10 Mg p.o. twice daily Plan: ? Held home medication memantine as this may possibly cause acidosis. ? continue pregabalin 100 Mg p.o. daily Health maintenance: Disposition: Treatment of C. difficile and sepsis Diet: Regular Lines: pIVs GI Prophylaxis: Contraindicated DVT Prophylaxis: Heparin 5000U sc BID Code status: FULL CODE Patient was evaluated and discussed with my attending Dr. Nguyen and senior Dr. Luna. Vicenta Matute, PGY1 Attending Provider Attestation/Addendum [place], , attest that I was physically present for the mcconnell portions of the service and evaluated the patient with the resident and I reviewed and discussed the case with the resident and agree with the resident's findings and plans of care as documented above Patient seen and eval this a.m. No acute events overnight. Patient appears to be uncomfortable but shallow breathing, but patient denies any nausea or vomiting. Patient had 3 episodes of diarrhea overnight. She denies any fevers, chills, chest pain, shortness of breath otherwise. Will check a VBG to acidosis as the cause of her shallow breathing. She does not have a metabolic acidosis secondary to diarrhea. Will start on sodium bicarb tabs twice a day.
--- NOTE | 2024-12-12 22:25 | PD.NEUROPROG ---
Documentation for date of: 12/12/24 Subjective Subjective Interval history: Ms. Cox seen in telemetry today. No new symptoms or concerns reported. Exam - Neurology Vital Signs Temp Pulse Resp BP Pulse Ox O2 Del Method 98.9 F 102 H 18 126/74 96 Room Air 12/12/24 19:51 12/12/24 19:51 12/12/24 19:51 12/12/24 19:51 12/12/24 19:51 12/12/24 19:51 Narrative Exam GENERAL APPEARANCE: Well hydrated, well-nourished in no acute distress. HEENT: Normocephalic, atraumatic, extraocular movements intact. Pupils: Equal reacting to light and accommodation NECK: Supple, no JVD or bruits. CARDIOVASULAR: Heart: S1, S2 heard, regular without S3-S4 or murmur no rubs or gallops. LUNGS/CHEST: Clear to auscultation bilaterally. No rails, rhonchi, or wheezing. Normal inspection. ABDOMEN: Soft, nontender, with normal bowel sounds. No pulsatile masses. No rebound, rigidity, or guarding. Normal inspection and palpation. EXTREMITIES: Normal inspection and palpation. No edema, clubbing or cyanosis. SKIN: Warm and dry without rashes. Normal inspection. MUSCULOSKELETAL: No cervical, thoracic, lumbar or midline bony tenderness. Normal inspection. NEURO: Alert, awake and oriented x3. Cranial nerves: II through XII grossly intact. Speech and language: Normal with no dysarthria or dysphasia. Motor system: Tone and bulk: Normal: Strength: 5 out of 5 in all 4 extremities; No pronator drift noted. Deep tendon reflexes: 2+ bilaterally symmetrical. Plantar reflex: Downgoing bilaterally. Sensory system: Intact to all modalities of sensation bilaterally. Coordination: Intact to [id number] and [id number] test bilaterally. No ataxia, no dysmetria, or dysdiadochokinesia noted. No intention tremors noted. Gait: Not tested. No signs of meningeal irritation noted. PSYCHIATRIC: Normal mood and affect. Objective Labs 12/12/24 05:35 12/12/24 05:35 Labs: Laboratory Results - last 24 hr 12/12/24 12/12/24 05:35 12:55 WBC 4.0 RBC 2.64 L Hgb 8.3 L Hct 25.5 L MCV 97 MCH 31.4 MCHC 32.5 RDW Std Deviation 46.8 H Plt Count 228 Neut % (Auto) 54 Lymph % (Auto) 34 [place] % (Auto) 9 Eos % (Auto) 2 Baso % (Auto) 0 Neut # (Auto) 2.2 Lymph # (Auto) 1.4 [place] # (Auto) 0.4 Eos # (Auto) 0.1 Baso # (Auto) 0.0 Immature Gran # (Auto) 0.04 H Absolute Nucleated RBC 0.00 Immature Gran % 1 H Nucleated RBC % 0 VBG pH 7.36 VBG pCO2 27 L VBG pO2 81 H VBG O2 Sat (Nathalie) 96 VBG Base Excess -9 L Sodium 142 Potassium 3.4 Chloride 116 H Carbon Dioxide 15.9 L Anion Gap 10 BUN 11 Creatinine 1.2 Estim Creat Clear Calc 43.7 L eGFR 51 L BUN/Creatinine Ratio 9 L Glucose 88 Calculated Osmolality 281 Calcium 8.0 L Corrected Calcium 8.2 L Magnesium 1.4 L Total Bilirubin 0.2 L AST 81 H ALT 123 H Alkaline Phosphatase 81 Total Protein 6.0 Albumin 3.8 Globulin 2.2 L Albumin/Globulin Ratio 1.7 ABG Interpretation ABG results: 12/03/24 12/12/24 23:07 12:55 VBG pH 7.23 L 7.36 VBG pCO2 36 27 L VBG pO2 30 81 H VBG Base Excess -11 L -9 L Assessment & Plan Assessment and plan (1) Acute renal failure: Status: Acute Assessment and plan: Improving with IV hydration (2) Clostridium difficile infection: Status: Acute Assessment and plan: On vancomycin PO, Fidaxomicin (3) Dementia: Status: Chronic Assessment and plan: Stable on memantine, resume (4) Hypertension: Status: Acute Assessment and plan: Continue with the carvedilol (5) Seizure: Status: Chronic Assessment and plan: Recent workup is negative for seizures. Continue with the pregabalin anyway for dual benefits
[2024-12-13] VITALS: BP 115/73; PULSE 60; RESP 17; TEMP 36.9; O2SAT 97
[2024-12-13 03:57] VITALS: PULSE 60; RESP 17; O2SAT 97
[2024-12-13 04:00] VITALS: BP 130/79; PULSE 98; RESP 16; TEMP 37; O2SAT 98
[2024-12-13] MEDS: VANCOMYCIN 125 MG CAPSULE PO ×2 (05:31→11:37)
[2024-12-13 06:04] LABS: Basophils % (Auto) 0 % (0-2.5); Eosinophils % (Auto) 1 % (0-10); Immature Granulocytes % (Auto) 1 % (0-0); Immature Granulocytes Auto 0.04 Thou/mm3 (0.00-0.00); Lymphocytes # (Auto) 1.5 Thou/mm3 (1.0-4.8); Lymphocytes % (Auto) 31 % (10-50); Mean Corpuscular HGB Conc 32.3 g/dl (31.0-37.0); Mean Corpuscular Volume 96 fL (80-100); Monocytes # (Auto) 0.5 Thou/mm3 (0.0-0.8); Monocytes % (Auto) 9 % (0-12); Neutrophils # (Auto) 2.9 Thou/mm3 (1.8-7.7); Neutrophils % (Auto) 59 % (37-80); Nucleated Red Blood Cell % 0 /100 WBC (0); Platelet Count 324 Thou/mm3 (140-440); RDW Standard Deviation 45.6 fL (36.4-46.3); Red Blood Count 2.71 Miln/mm3 (4.00-5.20)
[2024-12-13 06:16] LABS: Hemoglobin 8.4 g/dL (12.0-16.0)
[2024-12-13 06:31] LABS: Alanine Aminotransferase 106 U/L (10-49); Albumin, Serum 3.7 gm/dL (3.4-4.8); Albumin/Globulin Ratio 1.8 (1.2-2.2); Alkaline Phosphatase 83 U/L (46-116); Anion Gap 10 (7-16); Aspartate Amino Transferase 52 U/L (0-34); BUN/Creatinine Ratio 8 Ratio (12-20); Bilirubin,Total 0.2 mg/dL (0.3-1.2); Blood Urea Nitrogen 8 mg/dL (9-23); Calcium 8.1 mg/dL (8.3-10.6); Calcium (Corrected) 8.3 mg/dL (8.5-10.1); Carbon Dioxide 17.7 mMol/L (20.0-31.0); Chloride 114 mMol/L (98-107); Estimated Creatinine Clearance 49.5 mL/min (>60); Globulin 2.1 gm/dL (2.3-3.5); Glucose 100 mg/dL (74-106); Osmolality,Calculated 281 (275-295); Potassium 3.9 mMol/L (3.4-5.1); Sodium 142 mMol/L (136-145); Total Protein 5.8 gm/dL (5.7-8.2); eGFR > 60 See Note
[2024-12-13 07:03] LABS: Giardia Result NOT DETECTED
[2024-12-13 08:00] VITALS: BP 139/83; PULSE 97; RESP 18; TEMP 36.5; O2SAT 98
[2024-12-13] MEDS: LACTOBACILLUS RHAMNOSUS 1 CAP PO (09:05)
[2024-12-13] MEDS: SODIUM BICARBONATE 650 MG TABLET PO (09:05)
[2024-12-13] MEDS: MEMANTINE HCL 5 MG TABLET 10 MG PO (09:05)
[2024-12-13] MEDS: HEPARIN SOD INJ 5000 UNIT/ML VIAL SC (09:07)
--- NOTE | 2024-12-13 11:01 | PC.SS ---
SS follow up note; SS set up transportation for patient with [employer] [facility]. SS contacted patient's Pro and informed him that Patient was discharging to [facility] today at 3PM. SS also updated Patient's nurse, Mane from [facility]. SS also met with patient at bedside and informed her she would be discharging to [facility] at 3PM, Patient verbalized understanding.
--- NOTE | 2024-12-13 13:51 | ESDS_ITS ---
<Statement entered by Lucero Nguyen DO - 12/14/24 16:20> I, Lucero Nguyen DO, attest that I was physically present for the mcconnell portions of the service and evaluated the patient with the resident and I reviewed and discussed the case with the resident and agree with the resident's findings and plans of care as documented above Planned Discharge Date 12/13/24 DS: Providers Provider Date of admission: 12/03/24 21:53 Primary care physician: Benjie Morales MD Admitting Provider: Gene Cuellar MD Attending Provider on Admission: Lucero Nguyen DO Consults: 12/03/24 20:50 Consult to Nephrology Stat Comment: Consulting Provider: Laureen York 12/05/24 07:58 Consult to Neurology / Tele-Neurology Routine Comment: Consulting Provider: Flaquito Canales 12/06/24 08:15 Referral Physical Therapy Urgent Comment: Physician Instructions: 12/07/24 17:17 Consult to Infectious Diseases Routine Comment: c diff, fail po vanc Consulting Provider: Moris Garsia 12/08/24 08:33 Referral Wound Care Routine Comment: 12/11/24 13:47 Referral Nutritional Services Routine Comment: Instructions: Patient presented with severe diarrhea, C. diff positive. Symptoms have improved but still liquid stools. Requesting if dietary team can start patient on Banatrol. Thank you. Attending Provider on DC: Lucero Nguyen DO DS: Diagnosis Problem List Completed Was Problem List Reviewed/Reconciled?: Yes Hospital Course Hospital Course Hospital course: Reason for hospitalization: C. diff diarrhea Yennifer Cox is 64 yr female poor historian with PMH of bipolar disorder, primary hypertension, dementia, COPD, chronic constipation, and hyperlipidemia who presented to ED on 12/03/24 due to generalized weakness and abdominal pain. She arrived via ambulance after home health nurse discovered blood pressure to be 50/30. Patient was admitted for sepsis 2/2 C diff infection. She had previously been discharged from hospital on 11/28 after she was diagnosed with C. difficile and MAYELIN. However, unclear if she was compliant with PO vancomycin as she continued to have bouts of diarrhea during her stay. Networking Administrator Dr. York and ID Dr. Garsia were consulted. During this admission, patient did not require dialysis. Non anion gap metabolic acidosis in setting of diarrhea was treated with p.o. sodium bicarbonate. Per ID recs, she was continued on PO vancomycin with titrated course for 3 more weeks. All other electrolyte abnormalities were repleted. Patient's diarrhea episodes improved as well. Patient is now in stable condition and ready for discharge to SNF. Recommendations were given as below. Discharge Recommendations: Continue previous home medications as above. Continue sodium bicarbonate 650mg daily for one week. Complete vancomycin course for treatment of C. Difficile. For the c-diff infection, take vancomycin by mouth as follows: - 125mg QID for 5 days - 125mg TID x1 week - 125mg BID x1 week - 125mg daily x1 week to finish on January 07 2025 Then continue with Kefir yogurt daily for a week. Follow up with PCP in 1 week. Hospital Diagnoses: #Sepsis-resolved #Severe C. difficile infection #Anion gap metabolic acidosis #MAYELIN-resolved #right Renal cyst #Hypokalemia-resolved #Hypomagnesemia-resolved #Hypocalcemia-resolved #Normocytic anemia #Essential hypertension #COPD #Hyperlipidemia #Dementia #Chronic constipation #Fibromyalgia The patient's management plan was discussed with my attending physician Dr. Nguyen and senior Dr. Luna. Vicenta Matute MD, PGY-1 Time Spent with Patient Time attestation: Total time spent providing and/or coordinating discharge services: Time spent: Greater than 30 minutes Exam Vital Signs Temp Pulse Resp BP Pulse Ox O2 Del Method 97.7 F 97 18 139/83 H 98 Room Air 12/13/24 08:00 12/13/24 08:00 12/13/24 08:00 12/13/24 08:00 12/13/24 08:00 12/13/24 08:00 Narrative Exam Constitutional: Appears uncomfortable, no acute distress HEENT: NCAT, no conjunctival injection , symmetrical lids Neuro:A&Ox3, moves all four extremities spontaneously, no focal neurological deficits Refused rest of physical exam. Discharge Plan Plan Patient Disposition: Xfer Skilled Nsg Fac (SNF) Disposition Comment: [place] Patient condition on transfer: Stable Care Plan Goals: For the c-diff infection, take vancomycin by mouth as follows: - 125mg QID for 5 days - 125mg TID x1 week - 125mg BID x1 week - 125mg daily x1 week to finish on January 07 2025 Then continue with Kefir yogurt daily for a week. Monitor BP. If SBP > 130, start low dose amlodipine 2.5mg Prescriptions/Referrals Prescriptions/Med Rec: New sodium bicarbonate 650 mg Tablet 650 mg PO QDAY 7 Days Qty: 7 0RF Continued Stiolto Respimat 2.5-2.5 mcg/actuation mist 2 puff INHALATION DAILY albuterol sulfate [Ventolin HFA] 90 mcg/actuation HFA aerosol inhaler 2 puff INHALATION Q6HR PRN (Reason: Shortness Of Breath) memantine 10 mg tablet 10 mg PO BID simvastatin 10 mg tablet 10 mg PO QPM pregabalin [Lyrica] 100 mg capsule 100 mg PO QDAY Qty: 30 0RF vancomycin 125 mg Capsule 125 mg PO QID Qty: 33 0RF montelukast 10 mg tablet Discontinued carvedilol 12.5 mg tablet 12.5 mg PO BID donepezil 5 mg tablet nortriptyline 25 mg capsule baclofen 10 mg tablet paroxetine HCl 20 mg tablet PO lisinopril 10 mg tablet hydrochlorothiazide 12.5 mg capsule pantoprazole [Protonix] 40 mg tablet,delayed release (DR/EC) 40 mg PO QDAY Qty: 30 0RF Referrals: Benjie Morales MD [Primary Care Provider] - Patient/Caregiver Discharge Instructions Other Discharge Activity Instructions:: Continue previous home medications as above. Continue sodium bicarbonate 650mg daily for one week. Complete vancomycin course for treatment of C. Difficile. For the c-diff infection, take vancomycin by mouth as follows: - 125mg QID for 5 days - 125mg TID x1 week - 125mg BID x1 week - 125mg daily x1 week to finish on January 07 2025 Then continue with Kefir yogurt daily for a week. Follow up with PCP in 1 week. Education Materials: Sodium Bicarbonate Oral Tablet 650 mg, Clostridium Difficile Infection Print Language: [place] Stand Alone Forms: [facility] Award Info., Patient Portal Info Letter Discharge Order Discharge Orders: Discharge (Routine); Ordered 12/13/24 Ordered By: Vicenta Matute Quality Discharge Quality Measures VTE prophylaxis
== END 2024-12-13 13:21 | disposition skilled nursing facility (03) | DRG 371 ==
LOC: SERX 21:35 → SERHOLD 22:11 → S2NX 12-04 21:45 → S3NX 12-10 03:34
PROVIDERS: Internal Medicine Infectious Disease; Registered Nurse General Practice; Student in an Organized Health Care Education/Training Program; Admitting Provider Internal Medicine; Emergency Provider Emergency Medicine; PCP Family Medicine; Visit Provider Internal Medicine
DX: A04.72 Enterocolitis due to Clostridium difficile, not specified as recurrent (principal); A41.4 Sepsis due to anaerobes; F03.93 Unspecified dementia, unspecified severity, with mood disturbance; E87.29 Other acidosis; N17.9 Acute kidney failure, unspecified; K56.7 Ileus, unspecified; N39.0 Urinary tract infection, site not specified; T76.01XA Adult neglect or abandonment, suspected, initial encounter; F31.9 Bipolar disorder, unspecified; J44.9 Chronic obstructive pulmonary disease, unspecified; K59.09 Other constipation; E78.5 Hyperlipidemia, unspecified; E86.0 Dehydration; F17.200 Nicotine dependence, unspecified, uncomplicated; E83.51 Hypocalcemia; K62.89 Other specified diseases of anus and rectum; M79.7 Fibromyalgia; D63.1 Anemia in chronic kidney disease; N18.9 Chronic kidney disease, unspecified; I12.9 Hypertensive chronic kidney disease with stage 1 through stage 4 chronic kidney disease, or unspecified chronic kidney disease; E87.6 Hypokalemia; E83.42 Hypomagnesemia; N28.1 Cyst of kidney, acquired; I95.89 Other hypotension; G40.909 Epilepsy, unspecified, not intractable, without status epilepticus; G89.29 Other chronic pain; E83.39 Other disorders of phosphorus metabolism; E27.8 Other specified disorders of adrenal gland; R21 Rash and other nonspecific skin eruption; N28.89 Other specified disorders of kidney and ureter; Z60.2 Problems related to living alone; Z79.899 Other long term (current) drug therapy; Z86.19 Personal history of other infectious and parasitic diseases; Z91.199 Patient's noncompliance with other medical treatment and regimen due to unspecified reason; Z11.52 Encounter for screening for COVID-19
CPT/HCPCS: 36415; 71045; 74018; 74176; 74177; 74270; 76770; 80048; 80053; 80061; 80307; 81001; 82140; 82436; 82550; 82570; 82607; 82746; 82803; 83605; 83690; 83735; 83880; 84100; 84132; 84133; 84145; 84156; 84300; 84443; 85025; 85610; 85730; 86331; 86635; 86780; 87015; 87040; 87045; 87046; 87077; 87081; 87086; 87186; 87205; 87329; 87400; 87493; 87502; 87811; 87899; 93005; 96360; 96361; 96365; 96366; 96367; 96372; 97162; 99285; A4649; J0131; J0696; J1643; J2270; J2405; J2543; J2765; J3475; J3480; J7030; J7040; J7050; J7120; Q9963; Q9967; A9270